=== PATIENT | male | born 1950 | race Caucasian/White ===

== ENCOUNTER → 2017-08-10 08:38 | Outpatient (CLI) | payer MEDICARE, OTHER, SELFPAY ==
[2017-08-10 09:13] LABS: Add Manual Diff / Slide Review NO; Basophils Percent Auto 0.6 % (0-2); Eosinophils Percent Auto 2.1 % (2-4); Hematocrit 43.1 % (41-53); Hemoglobin 14.7 g/dL (13.5-17.5); Lymphocytes Percent Auto 38.6 % (25-40); Mean Corpuscular HGB Conc 34.1 % (30-36); Mean Corpuscular Hemoglobin 31.2 PG (26-34); Mean Corpuscular Volume 91.4 fL (80-100); Monocytes Percent Auto 8.9 % (3-14); Neutrophils Absolute Auto 2700 /uL (3000-5900); Neutrophils Percent Auto 49.8 % (50-75); Platelet Count 206 X10^3/uL (150-400); Red Blood Cell Count 4.71 X10^6/uL (4.5-5.9); White Blood Cell Count 5.5 X10^3/uL (4.5-11.0)
[2017-08-10 09:14] LABS: Hemoglobin A1C% w Est Avg Glu 6.3 % (4.0-6.0)
[2017-08-10 09:22] LABS: Alanine Aminotransferase 33 IU/L (21-72); Albumin 4.1 g/dL (3.5-5.0); Albumin Globulin Ratio 1.3 (1.0-2.8); Alkaline Phosphatase 66 U/L (38-126); Aspartate Aminotransferase 23 IU/L (17-59); BUN Creatinine Ratio 41.4 (6-22); Bilirubin Total 0.6 mg/dL (0.2-1.3); Blood Urea Nitrogen 29 mg/dL (9-20); Calcium 9.5 mg/dL (8.4-10.2); Carbon Dioxide 30 mmol/L (22-32); Chloride 100 mmol/L (98-107); Cholesterol 159 mg/dL (140-199); Estimated Glomerular Filt Rate > 60.0 mL/min (>60); Globulin 3.1 g/dL (1.7-4.1); Glucose 118 mg/dL (80-110); HDL Cholesterol 43 mg/dL (40-60); HEMOLYSIS < 15 (0-50); LDL Cholesterol Calculated 92 mg/dL (<100); Potassium 4.2 mmol/L (3.4-5.1); Sodium 139 mmol/L (137-145); Total Protein 7.2 g/dL (6.3-8.2); Triglycerides 121 mg/dL (35-150)
[2017-08-10 12:41] LABS: Bacteria Urine None Seen; RBC Urine None Seen (0-5/HPF)
[2017-08-10 12:47] LABS: Appearance Urine UA CLEAR; Bilirubin Urine UA NEGATIVE (NEGATIVE); Color Urine UA YELLOW; Glucose Urine UA NEGATIVE (Normal); Ketones Urine UA NEGATIVE (NEGATIVE); Leukocyte Esterase Urine UA NEGATIVE (NEGATIVE); Nitrite Urine UA Negative (Negative); Occult Blood Urine UA NEGATIVE (Negative); Protein Urine UA NEGATIVE (Negative); Urobilinogen Urine UA 0.2 E.U./dL (0.2)
[2017-08-10 12:55] LABS: Culture Indicated Urine Cult Not Indicated; Squamous Epithelial Cell Urine 0-1 /HPF; Urine Comments Microscopic Normal; WBC Urine 0-1/HPF (0-5/HPF)
== END ==
PROVIDERS: PCP Family Medicine; Visit Provider Family Medicine
DX: E11.9 Type 2 diabetes mellitus without complications (principal); I10 Essential (primary) hypertension; E78.00 Pure hypercholesterolemia, unspecified
CPT/HCPCS: 36415; 80053; 80061; 81001; 83036; 85025

== ENCOUNTER → 2018-01-31 09:03 | Outpatient (CLI) | payer MEDICARE, OTHER, SELFPAY ==
--- NOTE | 2018-01-31 09:05 | DI.US.S_ITS ---
PROCEDURE: US ABD AORTA ANEURYSM SCREEN INDICATIONS: HISTORY SMOKING TECHNIQUE: Real time scanning was performed of the aorta and iliac arteries, with image documentation. COMPARISON: None. FINDINGS: Aorta: Proximal aortic was obscured by bowel gas. Mid-aorta measures 1.8 cm. Distal aortic diameter is 1.8 cm. Iliac arteries: Right common iliac artery measures 1.1 cm. Left common iliac artery measures 1.1 cm. IMPRESSION: No evidence of abdominal aortic aneurysm. Dictated by: Renato Ramirez M.D. on 01/31/2018 at 11:55 Approved by: Renato Ramirez M.D. on 01/31/2018 at 11:59
== END ==
PROVIDERS: PCP Student in an Organized Health Care Education/Training Program; Visit Provider Student in an Organized Health Care Education/Training Program
DX: Z13.6 Encounter for screening for cardiovascular disorders (principal); Z87.891 Personal history of nicotine dependence
CPT/HCPCS: 76706

== ENCOUNTER → 2018-05-29 07:19 | Outpatient (CLI) | payer MEDICARE, OTHER, SELFPAY ==
[2018-05-29 08:51] LABS: BUN Creatinine Ratio 31.3 (6-22); Blood Urea Nitrogen 25 mg/dL (9-20); Calcium 9.6 mg/dL (8.4-10.2); Carbon Dioxide 32 mmol/L (22-32); Chloride 100 mmol/L (98-107); Estimated Glomerular Filt Rate > 60.0 mL/min (>60); Glucose 136 mg/dL (80-110); HEMOLYSIS < 15 (0-50); Potassium 4.5 mmol/L (3.4-5.1); Sodium 138 mmol/L (137-145)
[2018-05-29 09:43] LABS: Hemoglobin A1C% w Est Avg Glu 6.4 % (4.0-6.0)
[2018-05-29 09:59] LABS: Vitamin D 25 Hydroxy (D3) 43.5 ng/mL (30.0-100.0)
[2018-05-29 16:13] LABS: Creatinine Urine Random 42.4 mg/dL
[2018-05-29 16:18] LABS: Microalbumi Creatinin Ratio Ur 14.1 ug/mg CR (<30); Microalbumin Urine Random < 0.6 mg/dL (0-1.6)
== END ==
PROVIDERS: PCP Student in an Organized Health Care Education/Training Program; Visit Provider Student in an Organized Health Care Education/Training Program
DX: E11.9 Type 2 diabetes mellitus without complications (principal); I10 Essential (primary) hypertension; E55.9 Vitamin D deficiency, unspecified
CPT/HCPCS: 36415; 80048; 82043; 82306; 82570; 83036

== ENCOUNTER 2018-06-29 18:11 | Observation (INO) | payer MEDICARE, OTHER, SELFPAY ==
[2018-06-29] VITALS (8 sets, daily range): BP systolic 106–130; BP diastolic 69–114; PULSE 74–141; RESP 13–24; TEMP 36.4–37.2; O2SAT 94–98; BMI 175.1; BMI 35.9
--- NOTE | 2018-06-29 18:28 | ED.ARRPALP ---
HPI - Arrhythmia/Palpitations General Chief Complaint: Arrhythmia/Palpitations Stated Complaint: blood pressure/pulse x3 days Time Seen by Provider: 06/29/18 18:28 Source: patient Mode of arrival: ambulatory Limitations: no limitations History of Present Illness HPI narrative: Patient is a 59-year-old male here for evaluation of palpitations and chest pressure. Patient states that he started to feel his heart beat fast a couple days ago. Unsure whether not it was consistent however he stated that over the past couple days he felt it when he was exerting himself like climbing a flight of stairs. He stated that he also had some chest pressure during these times. It seemed to improve with rest. Has never had a history of palpitations in the past. Was not lightheaded or short of breath. Has not done anything for symptoms prior to arrival. He states that he felt the palpitations earlier today. He stopped by 1 of the drug stores and took his blood pressure and his heart rate was in the 140s to he came to the walk-in clinic who sent him here to the emergency department after obtaining an EKG. Related Data Home Medications Medication Instructions Recorded Confirmed Mame's Rain B-12 2,500 mcg PO DAILY 11/26/17 06/29/18 aspirin 81 mg tablet,delayed 81 mg PO DAILY 11/26/17 06/29/18 release cholecalciferol (vitamin D3) 1,000 1,000 unit PO DAILY 11/26/17 06/29/18 unit capsule lpsvpxcb-dtv-wifer acid 0.4 1 tab PO DAILY 11/26/17 06/29/18 mg-lycopene 300 mcg-lutein 250 mcg tablet Previous Rx's Medication Instructions Recorded lisinopril 20 mg PO QDAY #90 tab 08/07/17 simvastatin 10 mg PO Q DAY #45 tab 08/07/17 blood sugar diagnostic strips #100 each 11/23/17 lancets 33 gauge #100 each 11/23/17 atenolol 25 mg tablet 25 mg PO QDAY #90 tab 02/05/18 hydrochlorothiazide 25 mg tablet 25 mg PO QDAY #90 tab 02/05/18 metformin 850 mg tablet 850 mg PO BID #180 tab 05/10/18 Allergies Allergy/AdvReac Type Severity Reaction Status Date / Time No Known Drug Allergies Allergy Verified 11/26/17 13:25 Review of Systems Constitutional Denies fatigue and Denies headache(s) ENT Ears, Nose, Mouth, and Throat: Denies headache(s) Cardiovascular Reports chest pain, Denies syncope, Reports rapid heart rate, Denies leg edema, Denies lightheadedness, Denies radiating jaw, neck or arm pain, Reports palpitations, Denies dyspnea and Denies dyspnea on exertion Respiratory Denies dyspnea and Denies dyspnea on exertion Gastrointestinal Gastrointestinal: Denies abdominal pain, Denies nausea and Denies vomiting Genitourinary Denies dysuria Musculoskeletal Denies myalgias and Denies arthralgias Integumentary/Breasts Denies rash Neurologic Denies behavioral changes, Denies confusion, Denies syncope and Denies headache(s) Psychiatric Denies behavioral changes and Denies confusion Endocrine Denies fatigue and Reports palpitations Hematologic/Lymphatic Denies easy bleeding and Denies easy bruising Allergic/Immunologic Denies urticaria PFS Medical History Chronic back pain (Chronic 1990) Diabetes (Chronic 1997) Hyperlipemia (Chronic) Hypertension (Chronic) Foot pain (Resolved 2013) Plantar fasciitis (Resolved ~08/2013) Surgical History History of back surgery (Resolved) Hx of knee surgery (Resolved 1967) Family History (Updated 06/29/18 @ 21:29 by MADELYN Dao) Grandfather Heart disease Grandmother Hypertension Stroke High cholesterol Diabetes mellitus Grandfather Cancer Grandmother Diabetes mellitus Mother No problems noted. Brother Atrial fibrillation Atrial fibrillation, chronic Pacemaker Social History Smoking Status: Former smoker alcohol intake: current (occasionally) Family History Grandfather Heart disease Grandmother Hypertension Stroke High cholesterol Diabetes mellitus Grandfather Cancer Grandmother Diabetes mellitus Mother No problems noted. Brother Atrial fibrillation Atrial fibrillation, chronic Pacemaker Social History household members: none Smoking Status: Former smoker alcohol intake: current Exam Initial Vital Signs Initial Vital Signs: Vital Signs Temperature 97.5 F L 06/29/18 18:19 Pulse Rate 141 H 06/29/18 18:19 Respiratory Rate 16 06/29/18 18:19 Blood Pressure 127/83 06/29/18 18:19 Pulse Oximetry 94 06/29/18 18:19 Const General: cooperative, healthy appearing, comfortable, well developed, well groomed and No acute distress Orientation: alert, awake and oriented x3 HENMT Head: normal to inspection and normocephalic Ears: hearing grossly normal bilaterally Nose: external nose normal Resp Effort & Inspection: normal respiratory effort Auscultation: clear to auscultation bilaterally Cardio Rate: tachycardic Rhythm: abnormal rhythm Pulses: radial pulses present GI Inspection: non-distended Palpation: soft, No firm and No tender Skin Lesions: no lesions Rashes: no rashes Neuro General: alert, awake and oriented x3 Cognition: normal cognition Speech: speech normal Gait: normal gait Motor: muscle tone normal throughout Extrem General: capillary refill normal and No edema Psych Appearance: grossly normal and well kempt Mood: congruent mood Scores GCS Negro coma scale eye opening: Spontaneous Negro coma scale verbal response: Orientated Negro coma scale motor response: Obey commands [place] coma scale total score: 15 Course Orders Ordered: ED Orders 06/29/18 18:31 XR chest 1V Stat 06/29/18 21:00 MRSA PCR Urgent 06/30/18 EC echo doppler complete Urgent 06/30/18 05:00 Basic Metabolic Panel Routine Complete Blood Count MAN DIFF Routine 06/30/18 05:59 Troponin I Q6H 06/30/18 11:59 Troponin I Q6H Acetaminophen (Tylenol) 650 mg PO Q6HR PRN PRN Reason: As Needed for Fever/Mild Pain Apixaban (Eliquis) 5 mg PO BID [facility] Last Admin: 06/29/18 22:40 Dose: 5 mg Aspirin (Aspirin Ec) 81 mg PO DAILY [facility] Atenolol (Tenormin) 25 mg PO DAILY [facility] Diltiazem HCl (Cardizem) 60 mg PO Q6HR [facility] Last Admin: 06/30/18 00:56 Dose: Not Given Admin: 06/29/18 22:39 Dose: 60 mg Diltiazem HCl 125 mg/ Dextrose 125 mls @ 5 mls/hr IV TITRATE [facility]; Protocol Last Titration: 06/30/18 02:45 Dose: 0 mg/hr, 0 mls/hr Titration: 06/30/18 02:37 Dose: 2.5 mg/hr, 2.5 mls/hr Titration: 05/12/19 00:00 Dose: 5 mg/hr, 5 mls/hr Titration: 06/29/18 21:02 Dose: 10 mg/hr, 10 mls/hr Titration: 06/29/18 20:30 Dose: 10 mg/hr, 10 mls/hr Admin: 06/29/18 19:53 Dose: 5 mg/hr, 5 mls/hr Lisinopril (Zestril) 20 mg PO DAILY [facility] Metformin HCl (Glucophage) 850 mg PO BIDWM [facility] Last Admin: 06/29/18 22:37 Dose: 850 mg Simvastatin (Zocor) 10 mg PO BEDTIME [facility] Last Admin: 06/29/18 22:38 Dose: Not Given Discontinued Medications Diltiazem HCl (Cardizem) 10 mg IV NOW ONE Stop: 06/29/18 18:32 Last Admin: 06/29/18 18:37 Dose: 10 mg Sodium Chloride (Normal Saline 0.9%) 1,000 mls @ 1,000 mls/hr IV BOLUS ONE Stop: 06/29/18 19:29 Last Infusion: 06/29/18 20:11 Dose: 0 mls/hr Admin: 06/29/18 18:37 Dose: 1,000 mls/hr Vital Signs - 8 hr 06/29/18 19:30 06/29/18 19:53 06/29/18 20:30 Temperature Pulse Rate 127 H 139 H 137 H Respiratory Rate 20 24 Blood Pressure 117/80 Blood Pressure [Left Arm] 117/80 130/114 H Pulse Oximetry 95 98 06/29/18 21:00 06/29/18 22:39 06/29/18 23:45 Temperature 98.9 F 97.6 F Pulse Rate 139 H 92 H 74 Respiratory Rate 13 18 Blood Pressure 130/89 106/69 Blood Pressure [Left Arm] Pulse Oximetry 95 06/30/18 00:56 06/30/18 01:00 06/30/18 02:00 Temperature Pulse Rate 69 69 69 Respiratory Rate 16 16 Blood Pressure 106/69 103/46 L 105/57 L Blood Pressure [Left Arm] Pulse Oximetry MDM - Arrhythmia/Palpitations Lab Data Attestation: I reviewed the patient's lab results. Result diagrams: 06/29/18 18:17 06/29/18 18:17 Lab Results 06/29/18 06/29/18 06/29/18 Range/Units 18:17 18:17 18:17 WBC 6.4 (4.5-11.0) X10^3/uL RBC 5.33 (4.5-5.9) X10^6/uL Hgb 16.1 (13.5-17.5) g/dL Hct 49.1 (41-53) % MCV 92.0 (80-100) fL MCH 30.1 (26-34) PG MCHC 32.8 (30-36) % RDW 13.0 (11.6-14.8) % Plt Count 237 (150-400) X10^3/uL Neut % (Auto) 49.4 L (50-75) % Lymph % (Auto) 38.7 (25-40) % [place] % (Auto) 9.8 (3-14) % Eos % (Auto) 1.2 L (2-4) % Baso % (Auto) 0.9 (0-2) % Neut # (Auto) 3200 (7701-7311) /uL Lymph # (Auto) 2500 (8638-7892) /uL [place] # (Auto) 600 (0-900) /uL Eos # (Auto) 100 (0-450) /uL Baso # (Auto) 100 (0-100) /uL PT 12.8 H (10.1-12.7) SECONDS INR 1.1 (0.9-1.3) APTT 27 (26.4-36.2) SECONDS Sodium 137 (137-145) mmol/L Potassium 3.8 (3.4-5.1) mmol/L Chloride 98 (98-107) mmol/L Carbon Dioxide 28 (22-32) mmol/L BUN 19 (9-20) mg/dL Creatinine 0.70 (0.66-1.25) mg/dL Estimated GFR > 60.0 (>60) mL/min BUN/Creatinine Ratio 27.1 H (6-22) Glucose 116 H (80-110) mg/dL Calcium 10.0 (8.4-10.2) mg/dL Total Bilirubin 0.6 (0.2-1.3) mg/dL AST 26 (17-59) IU/L ALT 33 (21-72) IU/L Alkaline Phosphatase 61 (38-126) U/L Troponin I (0.01-0.034) ng/mL B-Natriuretic Peptide < 100 (<100) Total Protein 7.8 (6.3-8.2) g/dL Albumin 4.5 (3.5-5.0) g/dL Globulin 3.3 (1.7-4.1) g/dL Albumin/Globulin Ratio 1.4 (1.0-2.8) Lipase (23-300) U/L TSH (0.47-4.68) uIU/mL Nasal Screen MRSA (PCR) (Negative) 06/29/18 06/29/18 06/29/18 Range/Units 18:17 18:17 21:00 WBC (4.5-11.0) X10^3/uL RBC (4.5-5.9) X10^6/uL Hgb (13.5-17.5) g/dL Hct (41-53) % MCV (80-100) fL MCH (26-34) PG MCHC (30-36) % RDW (11.6-14.8) % Plt Count (150-400) X10^3/uL Neut % (Auto) (50-75) % Lymph % (Auto) (25-40) % [place] % (Auto) (3-14) % Eos % (Auto) (2-4) % Baso % (Auto) (0-2) % Neut # (Auto) (2456-9883) /uL Lymph # (Auto) (9975-1998) /uL [place] # (Auto) (0-900) /uL Eos # (Auto) (0-450) /uL Baso # (Auto) (0-100) /uL PT (10.1-12.7) SECONDS INR (0.9-1.3) APTT (26.4-36.2) SECONDS Sodium (137-145) mmol/L Potassium (3.4-5.1) mmol/L Chloride (98-107) mmol/L Carbon Dioxide (22-32) mmol/L BUN (9-20) mg/dL Creatinine (0.66-1.25) mg/dL Estimated GFR (>60) mL/min BUN/Creatinine Ratio (6-22) Glucose (80-110) mg/dL Calcium (8.4-10.2) mg/dL Total Bilirubin (0.2-1.3) mg/dL AST (17-59) IU/L ALT (21-72) IU/L Alkaline Phosphatase (38-126) U/L Troponin I < 0.012 (0.01-0.034) ng/mL B-Natriuretic Peptide (<100) Total Protein (6.3-8.2) g/dL Albumin (3.5-5.0) g/dL Globulin (1.7-4.1) g/dL Albumin/Globulin Ratio (1.0-2.8) Lipase 106 (23-300) U/L TSH 2.12 (0.47-4.68) uIU/mL Nasal Screen MRSA (PCR) Negative for mrsa (Negative) 06/30/18 Range/Units 00:11 WBC (4.5-11.0) X10^3/uL RBC (4.5-5.9) X10^6/uL Hgb (13.5-17.5) g/dL Hct (41-53) % MCV (80-100) fL MCH (26-34) PG MCHC (30-36) % RDW (11.6-14.8) % Plt Count (150-400) X10^3/uL Neut % (Auto) (50-75) % Lymph % (Auto) (25-40) % [place] % (Auto) (3-14) % Eos % (Auto) (2-4) % Baso % (Auto) (0-2) % Neut # (Auto) (0560-2570) /uL Lymph # (Auto) (4670-9002) /uL [place] # (Auto) (0-900) /uL Eos # (Auto) (0-450) /uL Baso # (Auto) (0-100) /uL PT (10.1-12.7) SECONDS INR (0.9-1.3) APTT (26.4-36.2) SECONDS Sodium (137-145) mmol/L Potassium (3.4-5.1) mmol/L Chloride (98-107) mmol/L Carbon Dioxide (22-32) mmol/L BUN (9-20) mg/dL Creatinine (0.66-1.25) mg/dL Estimated GFR (>60) mL/min BUN/Creatinine Ratio (6-22) Glucose (80-110) mg/dL Calcium (8.4-10.2) mg/dL Total Bilirubin (0.2-1.3) mg/dL AST (17-59) IU/L ALT (21-72) IU/L Alkaline Phosphatase (38-126) U/L Troponin I < 0.012 (0.01-0.034) ng/mL B-Natriuretic Peptide (<100) Total Protein (6.3-8.2) g/dL Albumin (3.5-5.0) g/dL Globulin (1.7-4.1) g/dL Albumin/Globulin Ratio (1.0-2.8) Lipase (23-300) U/L TSH (0.47-4.68) uIU/mL Nasal Screen MRSA (PCR) (Negative) Imaging Data Chest x-ray: Radiologist's impression: [address] [address] XRay Report Signed Patient: Giuseppe Pringle EMR#: [id number] : 1950Acct:[id number] Age/Sex: 67 / MDate of Service: 06/29/18 Loc: ED Accession Number: [id number] Procedure: XR chest 1V Ordering Provider: Femi Melton D.O. PROCEDURE: XR CHEST 1V INDICATIONS: Tachycardia/palpitations TECHNIQUE: One view of the chest was acquired. COMPARISON: None. FINDINGS: Surgical changes and devices: None. Lungs and pleura: Low lung volumes with scattered subsegmental atelectasis/scarring. No pleural effusions or pneumothorax. Mediastinum: Mediastinal contours appear normal. Heart size is normal. Bones and chest wall: No suspicious bony lesions. Overlying soft tissues appear unremarkable. IMPRESSION: No acute disease. Dictated by: Duke Gomez M.D. on 06/29/2018 at 18:55 Approved by: Duke Gomez M.D. on 06/29/2018 at 18:55 ECG Data Attestation: I personally reviewed and interpreted this ECG as follows: Prior ECG tracings: available for review Interpretation: EKG obtained from the walk-in clinic shows sinus tachycardia with ventricular rate of 144 Right bundle branch block Normal QRS No ST T wave changes EKG obtained here in the emergency department after Cardizem shows atrial fibrillation Ventricular rate of 101 Left axis deviation No ST T wave changes MDM Narrative Medical decision making narrative: Patient is stable upon arrival. His initial EKG has a rate in the 140s. Difficult to see whether not this was sinus tachycardia or atrial flutter/fibrillation. He was given 10 mg of Cardizem which slowed his heart rate down and a repeat EKG does show what appears to be atrial fibrillation. His heart rate did then returned into the 130s the 140s. He was started on a Cardizem drip. Unsure when his symptoms actually started so will hold on offering a cardioversion. Discussed the case with DENNY Gomez the night hospitalist and will admit for further evaluation and treatment. Discussed the admission with the patient who expressed understanding and agreement. Critical Care Time Critical Care Time: Yes Total Critical Care Time: 35 Attestation: The high probability of a clinically significant, sudden or life threatening deterioration of the cardiovascular system(s) required my full and direct attention, intervention and personal management. The aggregate critical care time was 35 minutes. This time is in addition to time spent performing reported procedures but includes the following: [] Data Review and interpretation [] Patient assessment and monitoring of vital signs [] Documentation [] Medication orders and management Discharge Plan Departure Patient Disposition: Admitted As Inpatient Clinical Impression: Atrial fibrillation Qualifiers: Atrial fibrillation type: unspecified Qualified Code(s): I48.91 - Unspecified atrial fibrillation Discharge Date/Time: 06/29/18 21:03 Interventions: ED Discharge Assessment Last Done: 06/29/18 21:02 Admit Date/Time: 06/29/18 19:50 Admit Provider: Dilcia Gomez
--- NOTE | 2018-06-29 18:31 | DI.RAD.S_ITS ---
PROCEDURE: XR CHEST 1V INDICATIONS: Tachycardia/palpitations TECHNIQUE: One view of the chest was acquired. COMPARISON: None. FINDINGS: Surgical changes and devices: None. Lungs and pleura: Low lung volumes with scattered subsegmental atelectasis/scarring. No pleural effusions or pneumothorax. Mediastinum: Mediastinal contours appear normal. Heart size is normal. Bones and chest wall: No suspicious bony lesions. Overlying soft tissues appear unremarkable. IMPRESSION: No acute disease. Dictated by: Duke Gomez M.D. on 06/29/2018 at 18:55 Approved by: Duke Gomez M.D. on 06/29/2018 at 18:55
[2018-06-29] MEDS: dilTIAZem 5 MG/ML SDV 10 MG IV (18:37)
[2018-06-29] MEDS: SODIUM CHLORIDE 0.9% 1,000 ML 1000 ML IV (18:37)
[2018-06-29 18:43] LABS: Add Manual Diff / Slide Review NO; Basophils Absolute Auto 100 /uL (0-100); Basophils Percent Auto 0.9 % (0-2); Eosinophils Absolute Auto 100 /uL (0-450); Eosinophils Percent Auto 1.2 % (2-4); Hematocrit 49.1 % (41-53); Hemoglobin 16.1 g/dL (13.5-17.5); Lymphocytes Absolute Auto 2500 /uL (1100-4500); Lymphocytes Percent Auto 38.7 % (25-40); Mean Corpuscular HGB Conc 32.8 % (30-36); Mean Corpuscular Hemoglobin 30.1 PG (26-34); Monocytes Absolute Auto 600 /uL (0-900); Monocytes Percent Auto 9.8 % (3-14); Neutrophils Absolute Auto 3200 /uL (1500-7000); Neutrophils Percent Auto 49.4 % (50-75); Platelet Count 237 X10^3/uL (150-400); Red Blood Cell Count 5.33 X10^6/uL (4.5-5.9); White Blood Cell Count 6.4 X10^3/uL (4.5-11.0)
[2018-06-29 18:51] LABS: INR 1.1 (0.9-1.3); Prothrombin Time 12.8 SECONDS (10.1-12.7)
[2018-06-29 18:54] LABS: PTT Partial Thromboplastin Tim 27 SECONDS (26.4-36.2)
[2018-06-29 18:56] LABS: Alanine Aminotransferase 33 IU/L (21-72); Albumin 4.5 g/dL (3.5-5.0); Albumin Globulin Ratio 1.4 (1.0-2.8); Alkaline Phosphatase 61 U/L (38-126); Aspartate Aminotransferase 26 IU/L (17-59); BUN Creatinine Ratio 27.1 (6-22); Bilirubin Total 0.6 mg/dL (0.2-1.3); Blood Urea Nitrogen 19 mg/dL (9-20); Carbon Dioxide 28 mmol/L (22-32); Chloride 98 mmol/L (98-107); Estimated Glomerular Filt Rate > 60.0 mL/min (>60); Globulin 3.3 g/dL (1.7-4.1); Glucose 116 mg/dL (80-110); HEMOLYSIS < 15 (0-50); Lipase 106 U/L (23-300); Potassium 3.8 mmol/L (3.4-5.1); Sodium 137 mmol/L (137-145); Total Protein 7.8 g/dL (6.3-8.2)
[2018-06-29 19:08] LABS: Troponin I < 0.012 ng/mL (0.01-0.034)
[2018-06-29 19:26] LABS: Thyroid Stimulating Hormone 2.12 uIU/mL (0.47-4.68)
[2018-06-29 19:41] LABS: B Type Natriuretic Peptide < 100 (<100)
[2018-06-29] MEDS: dilTIAZem 125 MG in DEXTROSE 5 % IN WATER 100 ML IV (19:53)
--- NOTE | 2018-06-29 21:25 | PM.HP.1 ---
History of Present Illness Date Patient Seen: 06/29/18 Time Patient Seen: 19:30 Chief complaint: blood pressure/pulse x3 days Narrative: Giuseppe Pringle is a very pleasant 67 y.o. male with diabetes type 2, essential hypertension and hyperlipidemia who approximately one week ago started having symptoms of shortness of breath and chest pain on exertion. He has been moving furniture up and down stairs in his home along with new hanging plants in a pot when the symptoms occurred. He describes the shortness of breath as taking my breath away which resolves after he stops exerting himself. He had one occurrence of chest pain when he reached the top of his stairs carrying the hanging plant which has since resolved. He states he got diaphretic when he went to the outpatient clinic but also said it was hot outside, he endorses having a slight headache today. Otherwise, he denies visual changes, cough, nausea or vomiting, abdominal pain, dysuria, diarrhea or constipation, or easy bleeding or bruising. Approximately 1 or 2 days ago, he went to potato picker a prescription and took his blood pressure, the first reading of 138/84 at 1430, the second reading was 117/74 at approximately 1600. He states his heart rate is in the mid-50s. He does have a brother, 3 years older than him that has atrial fibrillation and is paced. Patient History Medical History Chronic back pain (Chronic 1990) Diabetes (Chronic 1997) Hyperlipemia (Chronic) Hypertension (Chronic) Foot pain (Resolved 2013) Plantar fasciitis (Resolved ~08/2013) Surgical History History of back surgery (Resolved) Hx of knee surgery (Resolved 1967) Family History (Updated 06/29/18 @ 21:29 by MADELYN Dao) Grandfather Heart disease Grandmother Hypertension Stroke High cholesterol Diabetes mellitus Grandfather Cancer Grandmother Diabetes mellitus Mother No problems noted. Brother Atrial fibrillation Atrial fibrillation, chronic Pacemaker Social History Smoking Status: Former smoker alcohol intake: current (occasionally) Family & Social History Family History Grandfather Heart disease Grandmother Hypertension Stroke High cholesterol Diabetes mellitus Grandfather Cancer Grandmother Diabetes mellitus Mother No problems noted. Brother Atrial fibrillation Atrial fibrillation, chronic Pacemaker Safety & Behavioral: Feels Safe in Current Yes Environment Tobacco & Substance use: Smoking Status Former smoker alcohol intake current Meds Home Medications Medication Instructions Recorded Confirmed Type lisinopril 20 mg PO QDAY #90 tab 08/07/17 06/29/18 Rx simvastatin 10 mg PO Q DAY #45 tab 08/07/17 06/29/18 Rx blood sugar diagnostic strips #100 each 11/23/17 11/26/17 Rx lancets 33 gauge #100 each 11/23/17 11/26/17 Rx Nature's Bounty B-12 2,500 mcg PO DAILY 11/26/17 06/29/18 History aspirin 81 mg tablet,delayed 81 mg PO DAILY 11/26/17 06/29/18 History release cholecalciferol (vitamin D3) 1,000 1,000 unit PO DAILY 11/26/17 06/29/18 History unit capsule foysgbqd-qws-khupl acid 0.4 1 tab PO DAILY 11/26/17 06/29/18 History mg-lycopene 300 mcg-lutein 250 mcg tablet atenolol 25 mg tablet 25 mg PO QDAY #90 tab 02/05/18 06/29/18 Rx hydrochlorothiazide 25 mg tablet 25 mg PO QDAY #90 tab 02/05/18 06/29/18 Rx metformin 850 mg tablet 850 mg PO BID #180 tab 05/10/18 06/29/18 Rx Allergies Allergy/AdvReac Type Severity Reaction Status Date / Time No Known Drug Allergies Allergy Verified 11/26/17 13:25 Exam Vital Signs (past 8 hours): - 06/29/18 18:19 06/29/18 18:37 06/29/18 19:30 Temperature 97.5 F L Pulse Rate 141 H 140 H 127 H Respiratory Rate 16 20 Blood Pressure 127/83 127/83 Blood Pressure [Left Arm] 117/80 Pulse Oximetry 94 95 06/29/18 19:53 06/29/18 20:30 06/29/18 21:00 Temperature 98.9 F Pulse Rate 139 H 137 H 139 H Respiratory Rate 24 13 Blood Pressure 117/80 130/89 Blood Pressure [Left Arm] 130/114 H Pulse Oximetry 98 Oxygen Delivery Method Room Air Const General: well groomed and well hydrated Nutritional Appearance: overweight Orientation: alert, awake and oriented x3 HENMT Head: normal to inspection and normocephalic Ears: hearing grossly normal bilaterally Nose: external nose normal and nares normal Face and sinus: normal facial exam Mouth: oral mucosae normal and No audible dysphonia Teeth and gingiva: dentition normal Eyes General: appearance normal, both eyes and all related structures Eyelids: eyelids normal Conjunctivae: conjunctivae normal Sclera: sclerae normal Direct ophthalmoscopy: photophobia not present Neck Neck: normal visual inspection, No tracheal deviation and No JVD Resp Effort & Inspection: normal respiratory effort and able to speak in complete sentences Auscultation: clear to auscultation bilaterally Cardio Rate: tachycardic Rhythm: other (Irregularly irregular) Heart Sounds: gallop Pulses: normal peripheral pulses Other: Negative Kishor's sign GI Inspection: normal to inspection Palpation: soft and No guarding Auscultation: normal bowel sounds Skin General: no rashes or lesions noted and turgor normal Lesions: no lesions Rashes: no rashes Trauma: no lacerations or abrasions Hair: normal Nails: normal Neuro General: alert, awake and oriented x3 Cognition: normal cognition Speech: speech normal Extrem General: normal to inspection and full ROM Psych Affect: normal affect Thought Process: normal Judgment: judgment good Objective Labs Result Diagrams: 06/29/18 18:17 06/29/18 18:17 Labs: Laboratory Results - last 24 hr 06/29/18 06/29/18 06/29/18 18:17 18:17 18:17 WBC 6.4 RBC 5.33 Hgb 16.1 Hct 49.1 MCV 92.0 MCH 30.1 MCHC 32.8 RDW 13.0 Plt Count 237 Neut % (Auto) 49.4 L Lymph % (Auto) 38.7 [place] % (Auto) 9.8 Eos % (Auto) 1.2 L Baso % (Auto) 0.9 Neut # (Auto) 3200 Lymph # (Auto) 2500 [place] # (Auto) 600 Eos # (Auto) 100 Baso # (Auto) 100 PT 12.8 H INR 1.1 APTT 27 Sodium 137 Potassium 3.8 Chloride 98 Carbon Dioxide 28 BUN 19 Creatinine 0.70 Estimated GFR > 60.0 BUN/Creatinine Ratio 27.1 H Glucose 116 H Calcium 10.0 Total Bilirubin 0.6 AST 26 ALT 33 Alkaline Phosphatase 61 Troponin I B-Natriuretic Peptide < 100 Total Protein 7.8 Albumin 4.5 Globulin 3.3 Albumin/Globulin Ratio 1.4 Lipase TSH 06/29/18 06/29/18 18:17 18:17 WBC RBC Hgb Hct MCV MCH MCHC RDW Plt Count Neut % (Auto) Lymph % (Auto) [place] % (Auto) Eos % (Auto) Baso % (Auto) Neut # (Auto) Lymph # (Auto) [place] # (Auto) Eos # (Auto) Baso # (Auto) PT INR APTT Sodium Potassium Chloride Carbon Dioxide BUN Creatinine Estimated GFR BUN/Creatinine Ratio Glucose Calcium Total Bilirubin AST ALT Alkaline Phosphatase Troponin I < 0.012 B-Natriuretic Peptide Total Protein Albumin Globulin Albumin/Globulin Ratio Lipase 106 TSH 2.12 Assessment & Plan Assessment & Plan narrative: Giuseppe Pringle is a very pleasant 67 y.o. male with new onset atrial fibrillation who will be admitted to the ICU to convert his rhythm on a diltiazem drip to oral diltiazem cross taper. NEW ONSET ATRIAL FIBRILLATION POA - He was initiated on a diltiazem drip protocol in the ED and will continued on the drip - Start oral diltiazem 60 mg q 6 hours with blood pressure parameters - Start oral Apixaban 5 mg po bid for anticoagulation - Echo doppler in the AM - Outpatient follow-up with Cardiology - Start DIABETES TYPE 2 WELL CONTROLLED WITH AN A1C OF 6.4 IN MAY 2018 POA - Continue home dose of metformin 850 mg BID ESSENTIAL HYPERTENSION - Continue home dose of atenolol 25 mg po daily - Continue home dose of lisinopril 20 mg po daily - Continue home dose of ASA 81 mg po daily HYPERLIPIDEMIA - Continue home dose of Simvastatin 10 mg po daily Patient is admitted inpatient ICU as his stay is anticipated to exceed 2 midnights. FEN: Currently receiving IV diltiazem, diabetic carb control diet, BMP in the am VTE Prophylaxis: Apixaban 5 mg po bid Disposition: Likely discharge home Code status: Full Code Admission time: 75 minutes Scores CHADS-VASc Congestive heart failure: no Hypertension: yes Age 75 years or older: no Diabetes mellitus: yes Stroke, TIA, or TE: no Vascular disease: no Age 65 to 74 years: yes Sex category (female): Male CHADS-VASc Score: 3 Quality VTE Deep Vein Thrombosis/Pulmonary Embolism Present on Admission: No
--- NOTE | 2018-06-29 21:55 | PC.NURSE ---
Call and left a message with [facility] at regard echo order
--- NOTE | 2018-06-29 22:12 | PC.NURSE ---
Dayshift staff please call Echo again in AM 06/30/18 to remind him or her about the order for the patient in room 106. Number is [phone]. Thank you
[2018-06-29] MEDS: METFORMIN 850 MG TABLET PO (22:37)
[2018-06-29] MEDS: dilTIAZem 30 MG TABLET 60 MG PO (22:39)
[2018-06-29] MEDS: APIXABAN 5 MG TABLET PO (22:40)
--- NOTE | 2018-06-29 23:07 | PC.NURSE ---
admit note pt on diltiazem gtt at 10 mg/hr. HR sustaining low 140s. Diltiazem increased to 15 mg/hr. some reduction in rate noted, but HR up to 140s when pt stands to void and is slow to decline. Pt denies chest tightness, palpitations, SOB. Tele shows 2:[address] rate 138.
[2018-06-30] VITALS (16 sets, daily range): BP systolic 103–143; BP diastolic 46–86; PULSE 68–136; RESP 9–21; TEMP 36.5–38.9; O2SAT 94–98
--- NOTE | 2018-06-30 | DI.ECHO.S_ITS ---
[facility] +---------+ : : [address] : [address] : : : : [id number] : : : : Phone: [phone]+ Echocardiogram Report + + :Name: ROYCE JORDAN Study Date: 06/30/2018 Height: 71 in : :[facility] Weight: 257 lb : : Gender: Male BSA: 2.3 m2 : :: 1950 Age: 67 yrs BP: 129/67 mmHg: :Reason For Study: AFIB : : Performed By: Jose Cruz Maldonado : :Referring: ANGIE TURNER : + + Interpretation Summary A. fib with controlled rate. Normal LV size, wall thickness; mild global hypokinesis. EF is 50-55 percent. Severe biatrial enlargement. No significant valvular abnormalities. No prior study available for comparison. Procedure: A two-dimensional transthoracic echocardiogram with color flow and Doppler was performed. The study quality was technically adequate. There is no prior echocardiogram noted for this patient. The patient was in atrial fibrillation with controlled ventricular rate during the exam. The patient had a heart rate of 76-104 beats per minute. Left Ventricle: The left ventricle is normal in size. There is normal left ventricular wall thickness. The ejection fraction is estimated to be 50-55%. There are no focal wall motion abnormalities. Right Ventricle: The right ventricle is normal in size and function. Atria: The left atrium is severely dilated. The right atrium is severely dilated. The interatrial septum is intact with no evidence for an atrial septal defect. Mitral Valve: The mitral valve is normal in structure and function. There is mild mitral regurgitation. Aortic Valve: The aortic valve is trileaflet. The aortic valve opens well. No aortic regurgitation is present. Tricuspid Valve: The tricuspid valve is normal in structure and function. There is trace tricuspid regurgitation. Pulmonary artery pressures cannot be estimated because of the lack of a measurable TR jet velocity. Pulmonic Valve: The pulmonic valve is normal in structure and function. There is trace pulmonic regurgitation. Great Vessels: The aortic root is normal size. The dimensions of the ascending aorta are normal. The pulmonary artery is normal size. The IVC is dilated (diameter is greater than 2.1 cm) yet it collapses greater than 50% with a sniff. This suggests a right atrial pressure of 8 mm Hg. Pericardium/ Pleura There is no pericardial effusion. There is no pleural effusion. MMode/2D Measurements & Calculations LVIDd: 5.5 cm LVOT diam: 2.2 cm LVIDs: 3.5 cm Ao root diam: 3.0 cm FS: 37.2 % Aortic Jxn: 2.4 cm EPSS: 1.1 cm asc Aorta Diam: 3.1 cm IVSd: 1.0 cm LVPWd: 1.1 cm LV acosta. diameter/BSA (cm/m^2): 2.3 LV sys. diameter/BSA (cm/m^2): 1.5 LA dimension: 6.0 cm RA long axis: 6.5 cm LA A2 area: 28.1 cm2 RA area: 29.5 cm2 LA A4 area: 32.8 cm2 RA vol: 113.5 ml LA length (vol): 7.2 cm RA : 48.4 ml/m2 LA vol: 109.1 ml IVC diam: 2.7 cm LA vol index: 46.5 ml/m2 Doppler Measurements & Calculations Ao V2 max: 119.7 cm/sec LVOT Max Josiah: 77.8 cm/sec Ao V2 mean: 93.6 cm/sec LV V1 max P.4 mmHg Ao max P.7 mmHg LV V1 VTI: 16.0 cm Ao mean P.7 mmHg TAHIRA(I,D): 2.5 cm2 Ao V2 VTI: 24.9 cm TAHIRA(V,D): 2.5 cm2 sev ratio: 0.64 TAHIRA indexed to BSA (cm^2/m^2): 1.1 MV E max josiah: 88.4 cm/sec PA V2 max: 64.0 cm/sec MV A max josiah: 2.6 cm/sec PA V2 mean: 47.6 cm/sec MV E/A: 34.4 PA mean P.98 mmHg Med Peak E' Josiah: 5.8 cm/sec PA pr(Accel): 49.1 mmHg E/E' med: 15.2 PA Accel Time: 0.06 sec Lat Peak E' Josiah: 8.6 cm/sec E/E' lat: 10.3 E/e' average: 12.7 MV dec time: 0.14 sec SV(LVOT): 62.0 ml Electronically signed by: Nathalie Stein M.D. on Reading Physician:06/30/2018 05:56 PM
[2018-06-30 00:39] LABS: Troponin I < 0.012 ng/mL (0.01-0.034)
[2018-06-30 05:00] LABS: BUN Creatinine Ratio 31.7 (6-22); Blood Urea Nitrogen 19 mg/dL (9-20); Calcium 9.1 mg/dL (8.4-10.2); Carbon Dioxide 28 mmol/L (22-32); Chloride 101 mmol/L (98-107); Estimated Glomerular Filt Rate > 60.0 mL/min (>60); Glucose 108 mg/dL (80-110); HEMOLYSIS < 15 (0-50); Hematocrit 42.2 % (41-53); Mean Corpuscular HGB Conc 33.3 % (30-36); Mean Corpuscular Hemoglobin 30.4 PG (26-34); Mean Corpuscular Volume 91.3 fL (80-100); Platelet Count 187 X10^3/uL (150-400); Potassium 3.8 mmol/L (3.4-5.1); Red Blood Cell Count 4.62 X10^6/uL (4.5-5.9); Red Cell Distribution Width 12.8 % (11.6-14.8); Sodium 134 mmol/L (137-145); White Blood Cell Count 6.6 X10^3/uL (4.5-11.0)
[2018-06-30 05:07] LABS: Troponin I < 0.012 ng/mL (0.01-0.034)
[2018-06-30] MEDS: dilTIAZem 30 MG TABLET 60 MG PO (06:31)
--- NOTE | 2018-06-30 06:47 | PC.NURSE ---
Patient in A-fib/flutter CVR at midnight, diltiazem gtt titrated down from 15mg/hr to off by 0300, see vital trends. At 0440 while patient was sleeping, HR noted to be bradycardic to 32 briefly, recovered to 60s-70s, patient roused easily and was asymptomatic. PO diltiazem 60mg Q6h has been initiated.
[2018-06-30 07:10] LABS: Neutrophils Absolute Manual 2970 /uL (3000-5900); Total Cells Counted 100
[2018-06-30 07:11] LABS: RBC Morphology Normal Morphology
[2018-06-30] MEDS: APIXABAN 5 MG TABLET PO ×2 (07:51→21:34)
[2018-06-30] MEDS: ASPIRIN EC 81 MG TABLET PO (07:52)
[2018-06-30] MEDS: ATENOLOL 25 MG TABLET PO (07:52)
[2018-06-30] MEDS: LISINOPRIL 20 MG TABLET PO (07:52)
[2018-06-30] MEDS: METFORMIN 850 MG TABLET PO ×2 (07:53→17:21)
[2018-06-30] MEDS: ACETAMINOPHEN 325 MG TABLET 650 MG PO (07:55)
--- NOTE | 2018-06-30 08:56 | CM.DANOTE ---
Patient is a 67 year old male who was admitted on 06/29/18 for BP and AFIB issues. Pt has [employer] for insurance and his PCP is Dr. Mathis. EMR was reviewed. Per MD, pt with new onset AFIB and likely can d/c home when medically stable, waiting for chest xray and blood work results. SW met bedside with pt and explained role and pt confirmed that he lives at home in [place] alone and has supportive significant other in town as well and they take turns staying at each others houses and Sig Other is available for assist if needed after d/c. Pt denies any hx of HH or SNF and is quite Independent at baseline and active and drives. Pt denies any DPOA and was agreeable to DPOA brochure and pwk to review and SW provided to pt. Pt does not anticipate any SW needs at d/c and preference is to d/c home today if stable as he has plans for a whale watching tour with Sig other later today. SW provided pt with his Medicare Rights and he acknowledged understanding and signed his initial Medicare Message. Plan: SW to follow for likely pt d/c home when medically stable and any further identified discharge planning needs. TAVARES Lemus Discharge Planning/Care Management CM Discharge Assessment Start: 06/30/18 08:54 Freq: Status: Active Protocol: Document 06/30/18 08:54 BF (Rec: 06/30/18 08:56 [id number]) Discharge Planning Assessment Assigned Overnight Stocker TAVARES Mc DPOA/Assigned Designee Name none Advance Directives? Yes Advance Directives on File No History Provided By Patient Medical Record Has Patient been admitted in last 30 No days? Prior Living Arrangements House Household Members none Type of transporation used prior to Drives own vehicle admit Independent with ADL's Yes Is patient alert and oriented? Yes Caregiver for Another No Comment Likely home pending test results Barriers to Discharge No Discharge Plan Home Transportation Arrangement Significant other can likely provide transport at d/c Referrals Initiated None needed Whiteboard Updated in Patient Room with Yes name and ext. # of Overnight Stocker Review Status In Process Please Provide Date Initial DC 06/30/18 Assessment Was Performed Next Review Type Continued Stay Review
[2018-06-30 11:17] LABS: Magnesium 2.1 mg/dL (1.6-2.3)
[2018-06-30] MEDS: dilTIAZem CD 180 MG CAP PO (12:53)
[2018-06-30] MEDS: dilTIAZem SR 60 MG PO (17:22)
--- NOTE | 2018-06-30 18:37 | PC.NURSE ---
Addendum entered by Karen Briggs R.N. 06/30/18 19:03: When assessing sensation to face, pt says he feels both sides the same. Says that his cheek feels swollen and numb. No other neuro deficits noted. Called and spoke to Dr. Banuelos to report this at 18:35. Vitals at time of incident were B/P 137/81, HR 80 A-flutter. Original Note: event note 18:10- pt reported feeling numbness to left cheek. NIH stroke scale done.
--- NOTE | 2018-06-30 19:11 | P.PN_ITS ---
Subjective Date Patient Seen: 06/30/18 Interval history: Giuseppe Pringle is a 67-year-old male with a past medical history significant for hypertension, hyperlipidemia, diabetes mellitus type 2,non-insulin using, who presented for dyspnea on exertion x1 week and was found to have atrial fibrillation with RVR. Admitted for further management. The patient is resting in bedside chair comfortably. He reports he was symptomatic of atrial fibrillation with dyspnea on exertion that has mildly improved. He however reports he has not climbed stairs or moved furniture which were the actions that provoked his symptoms at home. The patient has no complaints and denies headache, lightheadedness or dizziness, vision changes, chest pain, shortness of breath, abdominal pain, nausea, vomiting, fever, chills, dysuria, diarrhea or constipation. He is voiding without difficulty. He has not had a bowel movement since admission but feels as though he may today. He is ambulating without assistance. Exam Vital Signs (past 8 hours): - 06/30/18 02:00 06/30/18 03:00 06/30/18 05:00 Temperature Pulse Rate 69 68 70 Respiratory Rate 16 15 18 Blood Pressure 105/57 L 120/75 111/66 Pulse Oximetry 06/30/18 06:31 06/30/18 07:00 06/30/18 08:08 Temperature 98.0 F Pulse Rate 87 92 H 136 H Respiratory Rate 18 Blood Pressure 132/67 138/75 Pulse Oximetry 98 06/30/18 08:13 Temperature Pulse Rate Respiratory Rate Blood Pressure Pulse Oximetry 95 Oxygen Delivery Method Room Air Oxygen Flow Rate 0 Narrative Exam Narrative: General: Older gentleman sitting in bedside chair and in no acute distress, well-developed, well-nourished, appropriately interactive. HEENT: Normocephalic, atraumatic. External ears without defect. Pupils equal, round, and reactive to light. Anicteric sclerae, moist conjunctivae, and no lid lag. Neck: Supple with full range of motion. No jugular venous distension. No bruits. No lymphadenopathy or thyromegaly. Cardiovascular: Irregularly irregular without murmurs, rubs, or gallops appreciated. Pulmonary: Clear to auscultation bilaterally without crackles, wheezes, or rhonchi. Normal respiratory effort with no use of accessory muscles. Abdomen: Soft, bowel sounds present, nontender, nondistended. No hepatosplenome estela or masses appreciated. Extremities: No clubbing, cyanosis, or edema. Skin: Normal temperature, turgor, and texture; no rash, ulcers, or subcutaneous nodules appreciated. Neurological: Cranial nerves grossly intact. Psychiatric: Normal mood and affect. Alert and oriented to person, place, and time. Objective Labs Result Diagrams: 06/30/18 04:26 06/30/18 04:26 Labs: Laboratory Results - last 24 hr 06/29/18 06/29/18 06/29/18 18:17 18:17 18:17 WBC 6.4 RBC 5.33 Hgb 16.1 Hct 49.1 MCV 92.0 MCH 30.1 MCHC 32.8 RDW 13.0 Plt Count 237 Neut % (Auto) 49.4 L Lymph % (Auto) 38.7 Traverse % (Auto) 9.8 Eos % (Auto) 1.2 L Baso % (Auto) 0.9 Neut # (Auto) 3200 Lymph # (Auto) 2500 Traverse # (Auto) 600 Eos # (Auto) 100 Baso # (Auto) 100 Total Counted Seg Neutrophils % Lymphocytes % (Manual) Atypical Lymphs % Monocytes % (Manual) Eosinophils % (Manual) Basophils % (Manual) Neutrophils # (Manual) RBC Morphology PT 12.8 H INR 1.1 APTT 27 Sodium 137 Potassium 3.8 Chloride 98 Carbon Dioxide 28 BUN 19 Creatinine 0.70 Estimated GFR > 60.0 BUN/Creatinine Ratio 27.1 H Glucose 116 H Calcium 10.0 Total Bilirubin 0.6 AST 26 ALT 33 Alkaline Phosphatase 61 Troponin I B-Natriuretic Peptide < 100 Total Protein 7.8 Albumin 4.5 Globulin 3.3 Albumin/Globulin Ratio 1.4 Lipase TSH Nasal Screen MRSA (PCR) 06/29/18 06/29/18 06/29/18 18:17 18:17 21:00 WBC RBC Hgb Hct MCV MCH MCHC RDW Plt Count Neut % (Auto) Lymph % (Auto) Traverse % (Auto) Eos % (Auto) Baso % (Auto) Neut # (Auto) Lymph # (Auto) Traverse # (Auto) Eos # (Auto) Baso # (Auto) Total Counted Seg Neutrophils % Lymphocytes % (Manual) Atypical Lymphs % Monocytes % (Manual) Eosinophils % (Manual) Basophils % (Manual) Neutrophils # (Manual) RBC Morphology PT INR APTT Sodium Potassium Chloride Carbon Dioxide BUN Creatinine Estimated GFR BUN/Creatinine Ratio Glucose Calcium Total Bilirubin AST ALT Alkaline Phosphatase Troponin I < 0.012 B-Natriuretic Peptide Total Protein Albumin Globulin Albumin/Globulin Ratio Lipase 106 TSH 2.12 Nasal Screen MRSA (PCR) Negative for mrsa 06/30/18 06/30/18 06/30/18 00:11 04:26 04:26 WBC 6.6 RBC 4.62 Hgb 14.0 Hct 42.2 MCV 91.3 MCH 30.4 MCHC 33.3 RDW 12.8 Plt Count 187 Neut % (Auto) Lymph % (Auto) Traverse % (Auto) Eos % (Auto) Baso % (Auto) Neut # (Auto) Lymph # (Auto) Traverse # (Auto) Eos # (Auto) Baso # (Auto) Total Counted 100 Seg Neutrophils % 45.0 Lymphocytes % (Manual) 46.0 H Atypical Lymphs % 1.0 H Monocytes % (Manual) 3.0 Eosinophils % (Manual) 3.0 Basophils % (Manual) 2.0 H Neutrophils # (Manual) 2970 L RBC Morphology Normal morphology PT INR APTT Sodium 134 L Potassium 3.8 Chloride 101 Carbon Dioxide 28 BUN 19 Creatinine 0.60 L Estimated GFR > 60.0 BUN/Creatinine Ratio 31.7 H Glucose 108 Calcium 9.1 Total Bilirubin AST ALT Alkaline Phosphatase Troponin I < 0.012 B-Natriuretic Peptide Total Protein Albumin Globulin Albumin/Globulin Ratio Lipase TSH Nasal Screen MRSA (PCR) 06/30/18 04:26 WBC RBC Hgb Hct MCV MCH MCHC RDW Plt Count Neut % (Auto) Lymph % (Auto) Traverse % (Auto) Eos % (Auto) Baso % (Auto) Neut # (Auto) Lymph # (Auto) Traverse # (Auto) Eos # (Auto) Baso # (Auto) Total Counted Seg Neutrophils % Lymphocytes % (Manual) Atypical Lymphs % Monocytes % (Manual) Eosinophils % (Manual) Basophils % (Manual) Neutrophils # (Manual) RBC Morphology PT INR APTT Sodium Potassium Chloride Carbon Dioxide BUN Creatinine Estimated GFR BUN/Creatinine Ratio Glucose Calcium Total Bilirubin AST ALT Alkaline Phosphatase Troponin I < 0.012 B-Natriuretic Peptide Total Protein Albumin Globulin Albumin/Globulin Ratio Lipase TSH Nasal Screen MRSA (PCR) Assessment & Plan Assessment & Plan narrative: Giuseppe Pringle is a 67-year-old male with a past medical history significant for hypertension, hyperlipidemia, diabetes mellitus type 2,non-insulin using, who presented for dyspnea on exertion x1 week and was found to have atrial fibrillation with RVR. Admitted for further management. 1. New onset atrial fibrillation, present on admission. Active. -He was initiated on a diltiazem gtt and titrated off to short acting diltiazem 60 mg every 6 hours then transition to long-acting diltiazem CD 180 mg daily. W ill continue to titrate diltiazem CD as needed. -Echocardiogram demonstrated normal LV size with mild global hypokinesis, EF 50- 55%, severe bilateral atrial enlargement, no significant valvular abnormalities. -Continue Eliquis 5 mg twice daily for VTE prophylaxis. Continue aspirin 81 mg daily. -Patient reports intermittent snoring and has significant neck circumference, therefore, recommended outpatient sleep study to assess for FATOU and treatment if present. -Recommend referral to cardiology outpatient per PCP. 2. Diabetes mellitus type 2, non-insulin using, present on admission. Stable. -Hemoglobin A1c 6.4% on 06/07. -Continue home dose of metformin 850 mg twice daily. -Continue [facility] blood glucose checks. 3. Hypertension, chronic, present on admission. Stable. -Continue aspirin 81 mg daily, atenolol 25 mg daily, lisinopril 20 mg daily. 4. Hyperlipidemia, chronic, present on admission. Stable. -Continue home dose of Simvastatin 10 mg daily. Disposition: Patient likely to discharge home tomorrow once atrial fibrillation with RVR has been controlled adequately. Quality VTE Deep Vein Thrombosis/Pulmonary Embolism Present on Admission: No
--- NOTE | 2018-06-30 20:18 | PM.EVENT ---
Date Patient Seen: 06/30/18 Time Patient Seen: 19:30 Patient was reported by nursing to have facial parasthesia concerning for a CVA or TIA. Patient seen and I did a NIH scale neuro exam which he scored 0. Gen: Alert, oriented X 4. HEENT: Head is normocephalic, no facsiculations, Eyes: PERRLA, EOM nl Neck: supple, rotation to right and left w/symetrical strenth and range of motion Shoulder: normal strength of uplift bilaterally UE: hand community center director 5/5, biceps strength 5/5, negative Rhomberg LE: able to do heel to thomas manuever bilaterally, dorsaflexion and plantarflexion normal with 5/5 strength Neuro: cranial nerves II-XI nl Psyche: normal mood and affect A/P Normal neuro exam. Patient is being treated for hyperlipidemia, last fasting lipids in 2018. Ordered fasting labs in the am and consider changing statin dose and/or medication.
--- NOTE | 2018-06-30 20:27 | P.EN_ITS ---
Date Patient Seen: 06/30/18 Time Patient Seen: 19:30 Patient was reported by nursing to have facial parasthesia concerning for a CVA or TIA. Patient seen and I did a NIH scale neuro exam which he scored 0. Gen: Alert, oriented X 4. HEENT: Head is normocephalic, no facsiculations, Eyes: PERRLA, EOM nl Neck: supple, rotation to right and left w/symetrical strenth and range of motion Shoulder: normal strength of uplift bilaterally UE: hand bowling ball weigher and packer 5/5, biceps strength 5/5, negative Rhomberg LE: able to do heel to thomas manuever bilaterally, dorsaflexion and plantarflexion normal with 5/5 strength Neuro: cranial nerves II-XI nl Psyche: normal mood and affect A/P Normal neuro exam. Patient is being treated for hyperlipidemia, last fasting lipids in 2018. Ordered fasting labs in the am and consider changing statin dose and/or medication.
[2018-06-30] MEDS: SIMVASTATIN 20 MG TABLET 10 MG PO (21:35)
--- NOTE | 2018-07-01 01:38 | PC.NURSE ---
MADELYN Gomez contacted about q2 vs and they may now be q4 hr.
[2018-07-01 04:55] VITALS: BP 118/57; PULSE 83; RESP 18; TEMP 36.9; O2SAT 96
[2018-07-01 05:46] LABS: Add Manual Diff / Slide Review NO; Basophils Absolute Auto 0 /uL (0-100); Basophils Percent Auto 0.7 % (0-2); Eosinophils Absolute Auto 100 /uL (0-450); Eosinophils Percent Auto 1.6 % (2-4); Hematocrit 42.2 % (41-53); Hemoglobin 14.4 g/dL (13.5-17.5); Lymphocytes Absolute Auto 1900 /uL (1100-4500); Lymphocytes Percent Auto 36.8 % (25-40); Mean Corpuscular HGB Conc 34.1 % (30-36); Mean Corpuscular Volume 91.1 fL (80-100); Monocytes Absolute Auto 600 /uL (0-900); Monocytes Percent Auto 10.8 % (3-14); Neutrophils Absolute Auto 2600 /uL (1500-7000); Neutrophils Percent Auto 50.1 % (50-75); Platelet Count 192 X10^3/uL (150-400); Red Blood Cell Count 4.63 X10^6/uL (4.5-5.9); Red Cell Distribution Width 13.1 % (11.6-14.8); White Blood Cell Count 5.2 X10^3/uL (4.5-11.0)
[2018-07-01 05:59] LABS: Alanine Aminotransferase 30 IU/L (21-72); Albumin 3.6 g/dL (3.5-5.0); Albumin Globulin Ratio 1.3 (1.0-2.8); Alkaline Phosphatase 52 U/L (38-126); Aspartate Aminotransferase 19 IU/L (17-59); BUN Creatinine Ratio 27.1 (6-22); Bilirubin Total 0.4 mg/dL (0.2-1.3); Blood Urea Nitrogen 19 mg/dL (9-20); Calcium 9.1 mg/dL (8.4-10.2); Carbon Dioxide 29 mmol/L (22-32); Chloride 102 mmol/L (98-107); Estimated Glomerular Filt Rate > 60.0 mL/min (>60); Globulin 2.7 g/dL (1.7-4.1); Glucose 121 mg/dL (80-110); HEMOLYSIS < 15 (0-50); Magnesium 2.1 mg/dL (1.6-2.3); Potassium 3.9 mmol/L (3.4-5.1); Sodium 136 mmol/L (137-145); Total Protein 6.3 g/dL (6.3-8.2)
[2018-07-01 08:00] VITALS: BP 122/65; PULSE 76; RESP 16; TEMP 36.8; O2SAT 97
[2018-07-01] MEDS: METFORMIN 850 MG TABLET PO (08:17)
[2018-07-01] MEDS: ATENOLOL 25 MG TABLET PO (08:17)
[2018-07-01] MEDS: ASPIRIN EC 81 MG TABLET PO (08:17)
[2018-07-01] MEDS: APIXABAN 5 MG TABLET PO (08:17)
[2018-07-01] MEDS: LISINOPRIL 20 MG TABLET PO (08:18)
[2018-07-01] MEDS: DOCUSATE 100 MG CAPSULE PO (08:18)
[2018-07-01] MEDS: dilTIAZem CD 120 MG CAP 240 MG PO (08:18)
--- NOTE | 2018-07-01 12:06 | P.DS_ITS ---
History of Present Illness Date Patient Seen: 06/29/18 Chief complaint: blood pressure/pulse x3 days Narrative: Written by Dilcia JOSHI: Giuseppe Pringle is a very pleasant 67 y.o. male with diabetes type 2, essential hypertension and hyperlipidemia who approximately one week ago started having symptoms of shortness of breath and chest pain on exertion. He has been moving furniture up and down stairs in his home along with new hanging plants in a pot when the symptoms occurred. He describes the shortness of breath as taking my breath away which resolves after he stops exerting himself. He had one occurrence of chest pain when he reached the top of his stairs carrying the hanging plant which has since resolved. He states he got diaphretic when he went to the outpatient clinic but also said it was hot outside, he endorses having a slight headache today. Otherwise, he denies visual changes, cough, nausea or vomiting, abdominal pain, dysuria, diarrhea or constipation, or easy bleeding or bruising. Approximately 1 or 2 days ago, he went to [facility] a prescription and took his blood pressure, the first reading of 138/84 at 1430, the second reading was 117/74 at approximately 1600. He states his heart rate is in the mid-50s. He does have a brother, 3 years older than him that has atrial fibrillation and is paced. Discharge Providers Date of admission: 06/29/18 19:50 Discharge Date: 07/01/18 Primary care physician: Mk Mathis MD Discharge provider: Pauly Banuelos DO Summary Discharge Diagnosis: 1. New onset appears to be chronic atrial fibrillation, present on admission. Stable. 2. Diabetes mellitus type 2, non-insulin using, present on admission. Stable. 3. Hypertension, chronic, present on admission. Stable. 4. Hyperlipidemia, chronic, present on admission. Stable. 5. Acute episode of left facial paresthesia, not present on admission. Resolved. 6. Obese, present on admission. Stable. Hospital Course: Giuseppe Pringle is a 67-year-old male with a past medical history significant for hypertension, hyperlipidemia, diabetes mellitus type 2,non-insulin using, who presented for dyspnea on exertion x1 week and was found to have atrial fibrillation with RVR. Admitted for further management. 1. New onset atrial fibrillation, present on admission. Stable. -He was initiated on a diltiazem gtt and titrated off to short then long acting PO diltiazem. Discharged on diltiazem CD 240 mg daily. Rate controlled in 80s to 90s at time of discharge. -Echocardiogram demonstrated normal LV size with mild global hypokinesis, EF 50- 55%, severe bilateral atrial enlargement, no significant valvular abnormalities. -Continued aspirin 81 mg daily and Xarelto 20 mg daily ($10 co-pay). -Patient reports intermittent snoring, has large neck circumference and centripetal obesity, and bilateral atrial enlargement, therefore, recommended outpatient sleep study to assess for FATOU and treatment if present. -Recommended referral to cardiology outpatient per PCP. 2. Diabetes mellitus type 2, non-insulin using, present on admission. Stable. -Hemoglobin A1c 6.4% on 06/07. -Continued home dose of metformin 850 mg twice daily. -Continued [facility] blood glucose checks. 3. Hypertension, chronic, present on admission. Stable. -Continued aspirin 81 mg daily, atenolol 25 mg daily, lisinopril 20 mg daily. 4. Hyperlipidemia, chronic, present on admission. Stable. -Continued home dose of Simvastatin 10 mg daily. 5. Acute episode of left facial paresthesia, not present on admission. Resolved. -NIH score 0 with non-focal exam. Resolved within minutes. -Patient on Xarelto and aspirin as above. 6. Obese, present on admission. Stable. -BMI 36. -Counseled patient on lifestyle modification including diet and exercise. Status at Discharge Functional status at discharge: uses cane/walker Overall status at discharge: patient is progressing back to baseline Exam Vital Signs (past 8 hours): - 07/01/18 04:55 07/01/18 08:00 Temperature 98.5 F 98.2 F Pulse Rate 83 76 Respiratory Rate 18 16 Blood Pressure 118/57 L 122/65 Pulse Oximetry 96 97 Oxygen Delivery Method Room Air Oxygen Flow Rate 0 Narrative Exam Narrative: General: Older gentleman sitting in bedside chair and in no acute distress, well-developed, well-nourished, appropriately interactive. HEENT: Normocephalic, atraumatic. External ears without defect. Pupils equal, round, and reactive to light. Anicteric sclerae, moist conjunctivae, and no lid lag. Neck: Supple with full range of motion. No jugular venous distension. No bruits. No lymphadenopathy or thyromegaly. Cardiovascular: Irregularly irregular without murmurs, rubs, or gallops appreciated. Pulmonary: Clear to auscultation bilaterally without crackles, wheezes, or rhonchi. Normal respiratory effort with no use of accessory muscles. Abdomen: Soft, obese, bowel sounds present, nontender, nondistended. No hepatosplenomegaly or masses appreciated. Extremities: No clubbing, cyanosis, or edema. Skin: Normal temperature, turgor, and texture; no rash, ulcers, or subcutaneous nodules appreciated. Neurological: Cranial nerves grossly intact. Psychiatric: Normal mood and affect. Alert and oriented to person, place, and time. Objective Labs Result Diagrams: 07/01/18 04:55 07/01/18 04:55 Labs: Laboratory Results - last 24 hr 07/01/18 07/01/18 04:55 04:55 WBC 5.2 RBC 4.63 Hgb 14.4 Hct 42.2 MCV 91.1 MCH 31.0 MCHC 34.1 RDW 13.1 Plt Count 192 Neut % (Auto) 50.1 Lymph % (Auto) 36.8 [place] % (Auto) 10.8 Eos % (Auto) 1.6 L Baso % (Auto) 0.7 Neut # (Auto) 2600 Lymph # (Auto) 1900 [place] # (Auto) 600 Eos # (Auto) 100 Baso # (Auto) 0 Sodium 136 L Potassium 3.9 Chloride 102 Carbon Dioxide 29 BUN 19 Creatinine 0.70 Estimated GFR > 60.0 BUN/Creatinine Ratio 27.1 H Glucose 121 H Calcium 9.1 Magnesium 2.1 Total Bilirubin 0.4 AST 19 ALT 30 Alkaline Phosphatase 52 Total Protein 6.3 Albumin 3.6 Globulin 2.7 Albumin/Globulin Ratio 1.3 Discharge Plan Discharge Plan Patient Disposition: Home Discharge comment: You are being discharged home. You have atrial fibrillation or sometimes called an irregular heartbeat. Please follow-up with your PCP, Dr. Mathis, at your scheduled appointment regarding your hospitalization and a possible referral for Cardiology consultation to ensure nothing else can be done. You were prescribed diltiazem 240 mg daily to help control your heart rate (may need to be adjusted in the future) and Xarelto 20 mg daily a blood thinner to protect to against blood clots. You may want to invest in a pulse oximeter at your local pharmacy to help keep track of your heart rate. If you have any stroke or heart attack like symptoms or recurrent symptoms please be seen by a health field care coordinator immediately. Continue aspirin 81 mg daily for stroke and heart attack prevention in addition to Xarelto and may want to discuss this with your PCP Dr. Mathis. Recommend you have a sleep study to assess for obstructive sleep apnea and be treated with a CPAP if so. Discharge Med Rec/Prescriptions Prescriptions: New diltiazem HCl 120 mg Capsule,Extended Release 24hr 240 mg PO DAILY Qty: 60 RF: 0 Xarelto 10 mg Tablet 20 mg PO DAILYCC Qty: 30 RF: 0 Continued aspirin [Adult Aspirin Regimen] 81 mg tablet,delayed release (DR/EC) 81 mg PO DAILY RF: 0 cholecalciferol (vitamin D3) 1,000 unit capsule 1,000 unit PO DAILY RF: 0 Nature's Bounty B-12 2,500 mcg PO DAILY RF: 0 bdhanixl-cne-EZ-lycopen-lutein [Centrum Silver] 0.4-300-250 mg-mcg-mcg tablet 1 tab PO DAILY RF: 0 simvastatin 20 mg tablet 10 mg PO Q DAY Qty: 45 RF: 3 lisinopril 20 mg tablet 20 mg PO QDAY Qty: 90 RF: 3 blood sugar diagnostic [Contour Test Strips] strip .ROUTE .MEDSUPPLY Qty: 100 RF: 0 lancets 33 gauge misc .ROUTE .MEDSUPPLY Qty: 100 RF: 0 atenolol 25 mg tablet 25 mg PO QDAY Qty: 90 RF: 3 hydrochlorothiazide 25 mg tablet 25 mg PO QDAY Qty: 90 RF: 3 metformin 850 mg tablet 850 mg PO BID Qty: 180 RF: 1 Follow up/Referrals: Mk Mathis MD [Primary Care Provider] - 1 Week Provider Discharge Instructions Diet: Carb-consistent/Diabetic, Low-fat, Low-sodium and Low-cholesterol Activity: Activity as tolerated. Visit Report/Discharge Packet Instructions: Atrial Fibrillation, DI for Atrial Fibrillation, Rivaroxaban (By mouth) Discharge Data Primary Care Provider: Mk Mathis Attending Provider: Dilcia Gomez Admit Date/Time: 06/29/18 19:50 Quality VTE Deep Vein Thrombosis/Pulmonary Embolism Present on Admission: No
--- NOTE | 2018-07-01 14:02 | PC.NURSE ---
Discharge instructions and home care handouts reviewed with patient. Patient states understanding and has no further questions or concerns at this time. Patient states he has follow up appointment already scheduled with DR. Mathis on the of this month. IV dc'd intact. Patient waiting for his significant other to come and pick him up. Patient instructed to call MD with questions or concerns, to seek emergent care if symptoms return or worsen, or if patient has new symptoms including signs or symptoms of stroke.
[2018-07-06 18:52] LABS: Apolipoprotein B 76 mg/dL (52-109); Cholesterol, Total 142 mg/dL (<200); HDL Cholesterol 44 mg/dL (>40); Lipoprotein (a) 33 nmol/L (<75); Non- HDL Cholesterol 98 (<130); Triglycerides 103 mg/dL (<150)
== END 2018-07-01 15:11 | disposition home or self-care (01) ==
LOC: ED 19:22 → ICU 06-30 09:27
PROVIDERS: Internal Medicine; Admitting Provider Nurse Practitioner Family; Emergency Provider Emergency Medicine; PCP Student in an Organized Health Care Education/Training Program; Visit Provider Nurse Practitioner Family
DX: I48.2 Chronic atrial fibrillation (principal); R00.2 Palpitations; E11.9 Type 2 diabetes mellitus without complications; E78.5 Hyperlipidemia, unspecified; I10 Essential (primary) hypertension; Z79.84 Long term (current) use of oral hypoglycemic drugs; E66.9 Obesity, unspecified; Z68.36 Body mass index [BMI] 36.0-36.9, adult
CPT/HCPCS: 36415; 36591; 71045; 80048; 80053; 82962; 83690; 83695; 83735; 83880; 84443; 84484; 85025; 85610; 85730; 87797; 93005; 93010; 93306; 96361; 96365; 96366; 96375; 99283; 99285; G0378

== ENCOUNTER → 2018-08-19 09:09 | Outpatient (CLI) | payer MEDICARE, OTHER, SELFPAY ==
[2018-06-29 21:31] VITALS: BMI 35.9
[2018-08-20 16:08] LABS: Fecal Immunochemical Test NOT DETECTED (NOT DETECTED)
== END ==
PROVIDERS: PCP Student in an Organized Health Care Education/Training Program; Visit Provider Student in an Organized Health Care Education/Training Program
DX: Z12.11 Encounter for screening for malignant neoplasm of colon (principal)
CPT/HCPCS: 82274

== ENCOUNTER → 2018-08-20 14:07 | Outpatient (CLI) | payer MEDICARE, OTHER, SELFPAY ==
[2018-06-29 21:31] VITALS: BMI 35.9
[2018-08-24 15:53] LABS: Testosterone Free 66.3 pg/mL (35.0-155.0); Testosterone Total 505 ng/dL (250-1100)
== END ==
PROVIDERS: PCP Student in an Organized Health Care Education/Training Program; Visit Provider Student in an Organized Health Care Education/Training Program
DX: E29.1 Testicular hypofunction (principal)
CPT/HCPCS: 36415; 84402; 84403

== ENCOUNTER 2019-08-30 14:51 | Emergency (ER) | payer MEDICARE, OTHER, SELFPAY ==
[2018-06-29 21:31] VITALS: BMI 35.9
--- NOTE | 2019-08-30 15:01 | DI.RAD.S_ITS ---
PROCEDURE: XR ANKLE LT MIN 3V INDICATIONS: severe ankle pain after injury, felt pop TECHNIQUE: 3 views of the ankle were acquired. COMPARISON: None. FINDINGS: Bones: No displaced fractures or dislocations of the left midfoot or hindfoot are appreciated. There moderate to severe degenerative changes of the subtalar joints and the tibiotalar joint. There is questionable fibrous fusion of the anterior process of the calcaneus with the adjacent navicular. The alignment of the ankle mortise is within normal limits. No suspicious osseous lesions are identified. Soft tissues: No tibiotalar joint effusion. Scattered subcutaneous calcifications along the anterior margin of the left lower leg are present, which may be related to previous injury. Soft tissue swelling about the ankle is identified. IMPRESSION: 1. No acute fractures of the left ankle. 2. Moderate to severe degenerative changes of the hindfoot joints. 3. Questionable fibrous fusion/coalition of the calcaneus and navicular. Dictated by: Renato Ramirez M.D. on 08/30/2019 at 14:32 Approved by: Renato Ramirez M.D. on 08/30/2019 at 14:33
[2019-08-30 15:04] VITALS: BP 144/65; PULSE 70; RESP 18; TEMP 37.1; O2SAT 97; BMI 35.2
--- NOTE | 2019-08-30 15:19 | ED_ITS ---
HPI - Extremity Injury (Lower) General Chief Complaint: Extremity Injury, Lower Stated Complaint: left foot/ lwr leg injury, lots of pain Time Seen by Provider: 08/30/19 14:52 Source: patient Mode of arrival: Ambulatory Limitations: no limitations History of Present Illness HPI Narrative: 69-year-old male former smoker with history of hypertension and cardiac arrhythmia presents with a chief complaint of a left ankle injury suffered yesterday while mowing the lawn. He was walking the lawn and stepped awkwardly and felt pop in his left posterior ankle which has since become much more intense and radiated around to the anterior of his ankle. It hurts worse with palpation or ambulation and he is unable to put any weight on it. He denies any knee or hip pain. He has no history of the same. He is otherwise well and free of complaint. MD complaint: ankle injury Onset (ago): hour(s) Type of Injury: inversion Place: street/outdoors Severity: moderate Relieving factors: immobilization and rest Exacerbating factors: weight bearing, movement and palpation Context: walking Associated symptoms: snap/pop sensation Other symptoms: none Related Data Home Medications Medication Instructions Recorded Confirmed Nature's Rain B-12 2,500 mcg PO DAILY 11/26/17 07/10/18 aspirin 81 mg tablet,delayed 81 mg PO DAILY 11/26/17 07/10/18 release cholecalciferol (vitamin D3) 25 1,000 unit PO DAILY 11/26/17 07/10/18 mcg (1,000 unit) capsule [id number]-hhr-bdijn acid 0.4 1 tab PO DAILY 11/26/17 07/10/18 mg-lycopene 300 mcg-lutein 250 mcg tablet flecainide 50 mg tablet 50 mg PO Q12H 08/20/18 Previous Rx's Medication Instructions Recorded lisinopril 20 mg PO QDAY #90 tab 08/07/17 blood sugar diagnostic #100 each 11/23/17 lancets 33 gauge #100 each 11/23/17 atenolol 25 mg tablet 25 mg PO QDAY #90 tab 02/05/18 diltiazem HCl 240 mg PO DAILY #60 cap 07/01/18 rivaroxaban [Xarelto] 20 mg PO DAILYCC #30 tab 07/01/18 hydrochlorothiazide 25 mg tablet 25 mg PO QDAY #90 tab 02/06/19 metformin 850 mg tablet 850 mg PO BID #180 tab 05/13/19 simvastatin 20 mg tablet 10 mg PO Q DAY #45 tab 08/25/19 hydrocodone-acetaminophen 1 tab PO Q4-6H PRN #15 tab 08/30/19 Allergies Allergy/AdvReac Type Severity Reaction Status Date / Time No Known Drug Allergies Allergy Verified 08/30/19 15:04 Review of Systems Constitutional Constitutional: Denies chills, Denies fatigue, Denies fever(s), Denies frequent falls, Denies lethargy and Denies weakness Eyes Eyes: Denies change in vision, Denies eye discharge, Denies irritation and Denies loss of vision ENT Ears, Nose, Mouth, and Throat: Denies change in voice, Denies dizziness, Denies neck pain, Denies sore throat and Denies throat swelling Cardiovascular Cardiovascular: Denies chest pain, Denies irregular heart rhythm, Denies lightheadedness, Denies palpitations, Denies dyspnea, Denies dyspnea on exertion and Denies orthopnea Respiratory Respiratory: Denies cough, Denies dyspnea, Denies dyspnea on exertion and Denies wheezing Gastrointestinal Gastrointestinal: Denies abdominal pain, Denies change in bowel habits, Denies diarrhea, Denies nausea and Denies vomiting Musculoskeletal Musculoskeletal: Reports joint swelling, Reports limited range of motion, Denies neck pain and Denies numbness Integumentary/Breasts Skin/Breast: Denies pruritus, Denies erythema, Denies rash and Denies wounds Neurologic Neurologic: Denies behavioral changes, Denies confusion, Denies dizziness, Denies frequent falls, Denies loss of vision, Denies numbness and Denies weakness Psychiatric Psychiatric: Denies anxiety, Denies behavioral changes, Denies confusion, Denies depression, Denies homicidal ideation and Denies suicidal ideation Endocrine Endocrine: Denies fatigue, Denies flushing and Denies palpitations Hematologic/Lymphatic Hematologic/Lymphatic: Denies easy bruising Allergic/Immunologic Allergic/Immunologic: Denies urticaria, Denies throat swelling and Denies wheezing Patient History Medical History Chronic back pain (Chronic 1990) Diabetes (Chronic 1997) Foot pain (Resolved 2013) Hyperlipemia (Chronic) Hypertension (Chronic) Plantar fasciitis (Resolved ~08/2013) Surgical History History of back surgery (Resolved) Hx of knee surgery (Resolved 1967) Family History Grandfather Heart disease Grandmother Hypertension Stroke High cholesterol Diabetes mellitus Grandfather Cancer Grandmother Diabetes mellitus Mother No problems noted. Brother Atrial fibrillation Atrial fibrillation, chronic Pacemaker Social History household members: none Smoking Status: Former smoker alcohol intake: current Smoking Status: Former smoker alcohol intake frequency: 0-2 drinks per day Substance Use Type: does not use Exam Narrative Exam Narrative: GENERAL: [69] year old patient appears stated age. Well- nourished, well-developed patient, in mild distress. HEAD: Atraumatic. Normocephalic. EYES: Pupils equal round and reactive. Extraocular motions intact. No scleral icterus. No injection or drainage. ENT: Nose without bleeding, purulent drainage. Throat without erythema, tonsillar hypertrophy or exudate. Airway patent. NECK: Trachea midline. Non tender CARDIOVASCULAR: Regular rate and rhythm without murmurs, gallops, or rubs. RESPIRATORY: Clear to auscultation. Breath sounds equal bilaterally. No wheezes, rales, or rhonchi. GASTROINTESTINAL: Abdomen soft, non-tender, nondistended. EXTREMITIES: No obvious deformity but moderate swelling around left ankle including inferior to medial and lateral malleoli. No step-off of Achilles. Calf squeeze results in painful plantar flexion. No numbness, tingling or weakness. No obvious ligamentous instability BACK: Nontender without deformity or crepitance. No flank tenderness. NEURO: AOx3. SKIN: No rash or erythema of visible areas Initial Vital Signs Initial Vital Signs: Vital Signs Temperature 98.8 F 08/30/19 15:04 Pulse Rate 70 08/30/19 15:04 Respiratory Rate 18 08/30/19 15:04 Blood Pressure 144/65 H 08/30/19 15:04 Pulse Oximetry 97 08/30/19 15:04 Procedures Orthopedic Splinting/Casting Injury #1: Side: left Lower Extremity Injury Location: ankle Lower Extremity Immobilizer: boot orthosis Post splinting neuro exam: intact Post splinting vascular exam: intact Placed by: Nursing Course Orders Ordered: ED Orders 08/30/19 15:01 XR ankle LT min 3V Stat Discontinued Medications Hydrocodone Bitart/Acetaminophen ([place] 5/325) 2 tab PO NOW ONE Stop: 08/30/19 15:35 Last Admin: 08/30/19 15:39 Dose: 2 tab Documented by: KIRSTIE Consultations Consultation #1: call to Dr. Yang. Reviewed Xray and History/Physical. Recommends boot orthosis with a small heel lift, weight bearing as tolerated. Follow up Vital Signs Vital signs: Vital Signs - 8 hr 08/30/19 15:04 08/30/19 16:30 08/30/19 16:31 Temperature 98.8 F Pulse Rate 70 63 Respiratory Rate 18 Blood Pressure 144/65 H 131/61 Pulse Oximetry 97 99 MDM - Extremity Injury (Lower) Imaging Data Extremity x-ray #1: Attestation: I personally reviewed and interpreted this imaging study as follows: My Impression: No obvious fracture. Mortise normal. Degenerative changes. Discharge Plan Departure Patient Disposition: Home Clinical Impression: Ankle injury Qualifiers: Encounter type: initial encounter Laterality: left Qualified Code(s): S99.912A - Unspecified injury of left ankle, initial encounter Discharge Date/Time: 08/30/19 16:33 Instructions: DI for Ankle Pain Prescriptions: New hydrocodone-acetaminophen 5-325 mg tablet 1 tab PO Q4-6H PRN (Reason: pain) Qty: 15 RF: 0 No Action aspirin [Adult Aspirin Regimen] 81 mg tablet,delayed release (DR/EC) 81 mg PO DAILY RF: 0 cholecalciferol (vitamin D3) 1,000 unit capsule 1,000 unit PO DAILY RF: 0 Nature's Bounty B-12 2,500 mcg PO DAILY RF: 0 eoyuhuff-krv-QC-lycopen-lutein [Centrum Silver] 0.4-300-250 mg-mcg-mcg tablet 1 tab PO DAILY RF: 0 lisinopril 20 mg tablet 20 mg PO QDAY Qty: 90 RF: 3 (DME) blood sugar diagnostic [Contour Test Strips] strip See Dose Instructions .ROUTE .MEDSUPPLY Qty: 100 RF: 0 (DME) lancets 33 gauge misc See Dose Instructions .ROUTE .MEDSUPPLY Qty: 100 RF: 0 atenolol 25 mg tablet 25 mg PO QDAY Qty: 90 RF: 3 flecainide 50 mg tablet 50 mg PO Q12H RF: 0 hydrochlorothiazide 25 mg tablet 25 mg PO QDAY Qty: 90 RF: 3 metformin 850 mg tablet 850 mg PO BID Qty: 180 RF: 0 simvastatin 20 mg tablet 10 mg PO Q DAY Qty: 45 RF: 0 diltiazem HCl 120 mg Capsule,Extended Release 24hr 240 mg PO DAILY Qty: 60 RF: 0 Xarelto 10 mg Tablet 20 mg PO DAILYCC Qty: 30 RF: 0 Referrals: Mk Mathis MD [Primary Care Provider] - Luis Yang MD [Physician] -
[2019-08-30] MEDS: HYDROCODONE/ACET 5/325 TABLET 2 TAB PO (15:39)
[2019-08-30 16:30] VITALS: PULSE 63; O2SAT 99
[2019-08-30 16:31] VITALS: BP 131/61
== END 2019-08-30 16:33 | disposition home or self-care (01) ==
PROVIDERS: Emergency Provider Emergency Medicine; PCP Student in an Organized Health Care Education/Training Program
DX: S99.912A Unspecified injury of left ankle, initial encounter (principal)
CPT/HCPCS: 73610; 99283; 99284

== ENCOUNTER → 2019-10-01 07:23 | Outpatient (CLI) | payer MEDICARE, OTHER, SELFPAY ==
[2018-06-29 21:31] VITALS: BMI 35.9
[2019-10-01 08:19] LABS: Hemoglobin A1C% w Est Avg Glu 6.8 % (4.0-6.0)
[2019-10-01 08:33] LABS: Blood Urea Nitrogen 21 mg/dL (9-20); Calcium 9.9 mg/dL (8.4-10.2); Carbon Dioxide 31 mmol/L (22-32); Chloride 101 mmol/L (98-107); Estimated Glomerular Filt Rate > 60.0 mL/min (>60); Glucose 141 mg/dL (80-110); HEMOLYSIS < 15 (0-50); Potassium 4.3 mmol/L (3.4-5.1); Sodium 136 mmol/L (137-145)
[2019-10-01 09:04] LABS: Prostate Specific Antigen Scrn 1.06 ng/mL (0.1-4.0)
== END ==
PROVIDERS: PCP Student in an Organized Health Care Education/Training Program; Referring Provider Student in an Organized Health Care Education/Training Program; Visit Provider Student in an Organized Health Care Education/Training Program
DX: Z12.5 Encounter for screening for malignant neoplasm of prostate (principal); E11.9 Type 2 diabetes mellitus without complications; I10 Essential (primary) hypertension
CPT/HCPCS: 36415; 80048; 83036; G0103

== ENCOUNTER → 2019-10-02 10:03 | Outpatient (CLI) | payer MEDICARE, OTHER, SELFPAY ==
[2018-06-29 21:31] VITALS: BMI 35.9
[2019-10-02 12:39] LABS: Creatinine Urine Random 61.1 mg/dL
[2019-10-02 12:46] LABS: Microalbumi Creatinin Ratio Ur 9.8 ug/mg CR (<30); Microalbumin Urine Random < 0.6 mg/dL (0-1.6)
[2019-10-03 14:36] LABS: Fecal Immunochemical Test Negative (Negative)
== END ==
PROVIDERS: PCP Student in an Organized Health Care Education/Training Program; Referring Provider Student in an Organized Health Care Education/Training Program; Visit Provider Student in an Organized Health Care Education/Training Program
DX: E11.9 Type 2 diabetes mellitus without complications (principal); I10 Essential (primary) hypertension; Z12.11 Encounter for screening for malignant neoplasm of colon
CPT/HCPCS: 82043; 82274; 82570

== ENCOUNTER → 2019-11-07 14:19 | Outpatient (CLI) | payer MEDICARE, OTHER, SELFPAY ==
[2019-11-06 11:29] VITALS: BMI 35.9
--- NOTE | 2019-11-07 | DI.RAD.S_ITS ---
PROCEDURE: XR SHOULDER LT MIN 2V INDICATIONS: LEFT SHOULDER PAIN TECHNIQUE: 3 views of the shoulder were acquired. COMPARISON: None. FINDINGS: Bones: No fractures or dislocations. No suspicious bony lesions. Visualized ribs appear intact. Mild to moderate AC joint osteoarthritis. No trauma found. Superior subluxation of the humeral head is present, to the degree that a rotator cuff tear may be present allowing that subluxation Soft tissues: No suspicious soft tissue calcifications. IMPRESSION: Superior subluxation of the humeral head, AC joint osteoarthritis, possible rotator cuff tear involving the left shoulder. Dictated by: Mitch Guo M.D. on 11/07/2019 at 14:46 Approved by: Mitch Guo M.D. on 11/07/2019 at 14:47
== END ==
PROVIDERS: PCP Student in an Organized Health Care Education/Training Program; Referring Provider Student in an Organized Health Care Education/Training Program; Visit Provider Student in an Organized Health Care Education/Training Program
DX: M25.512 Pain in left shoulder (principal); S43.002A Unspecified subluxation of left shoulder joint, initial encounter; M19.012 Primary osteoarthritis, left shoulder; X58.XXXA Exposure to other specified factors, initial encounter
CPT/HCPCS: 73030

== ENCOUNTER → 2020-04-16 09:47 | Outpatient (CLI) | payer MEDICARE, OTHER, SELFPAY ==
[2019-11-06 11:29] VITALS: BMI 35.9
[2020-04-16 10:24] LABS: Hemoglobin A1C% w Est Avg Glu 6.7 % (4.0-6.0)
== END ==
PROVIDERS: PCP Student in an Organized Health Care Education/Training Program; Referring Provider Student in an Organized Health Care Education/Training Program; Visit Provider Student in an Organized Health Care Education/Training Program
DX: E11.9 Type 2 diabetes mellitus without complications (principal)
CPT/HCPCS: 36415; 83036

== ENCOUNTER → 2020-09-29 15:56 | Outpatient (CLI) | payer MEDICARE, OTHER, SELFPAY ==
[2019-11-06 11:29] VITALS: BMI 35.9
[2020-09-29 16:36] LABS: COVID19 -Nasal RAPID Negative (Negative)
== END ==
PROVIDERS: PCP Student in an Organized Health Care Education/Training Program; Visit Provider Student in an Organized Health Care Education/Training Program
DX: Z20.822 Contact with and (suspected) exposure to COVID-19 (principal)
CPT/HCPCS: 87635; C9803

== ENCOUNTER → 2020-10-11 14:31 | Outpatient (CLI) | payer MEDICARE, OTHER, SELFPAY ==
[2019-11-06 11:29] VITALS: BMI 35.9
[2020-10-11 15:37] LABS: Alanine Aminotransferase 17 IU/L (<50); Albumin 4.1 g/dL (3.5-5.0); Albumin Globulin Ratio 1.4 (1.0-2.8); Alkaline Phosphatase 68 U/L (38-126); Aspartate Aminotransferase 24 IU/L (17-59); BUN Creatinine Ratio 25.9 (6-22); Bilirubin Total 0.3 mg/dL (0.2-1.3); Blood Urea Nitrogen 21 mg/dL (9-20); Calcium 9.8 mg/dL (8.4-10.2); Carbon Dioxide 32 mmol/L (22-32); Chloride 100 mmol/L (98-107); Estimated Glomerular Filt Rate > 60.0 mL/min (>60); Glucose 106 mg/dL (80-110); HEMOLYSIS < 15 (0-50); Potassium 3.7 mmol/L (3.4-5.1); Sodium 139 mmol/L (137-145); Total Protein 7.1 g/dL (6.3-8.2)
[2020-10-11 15:38] LABS: Hemoglobin A1C% w Est Avg Glu 5.7 % (4.0-6.0)
[2020-10-11 17:05] LABS: Creatinine Urine Random 91.9 mg/dL
[2020-10-11 17:44] LABS: Microalbumin Urine Random < 0.6 mg/dL (0-1.6)
== END ==
PROVIDERS: PCP Student in an Organized Health Care Education/Training Program; Referring Provider Physician Assistant; Visit Provider Physician Assistant
DX: I48.0 Paroxysmal atrial fibrillation (principal); E11.9 Type 2 diabetes mellitus without complications
CPT/HCPCS: 36415; 80053; 82043; 82570; 83036

== ENCOUNTER → 2020-11-04 14:08 | Outpatient (CLI) | payer MEDICARE, OTHER, SELFPAY ==
[2019-11-06 11:29] VITALS: BMI 35.9
--- NOTE | 2020-11-04 14:12 | DI.RAD.S_ITS ---
PROCEDURE: XR KNEE RT 3V INDICATIONS: Knee pain TECHNIQUE: 3 views of the knee were acquired. COMPARISON: None. FINDINGS: Bones: No fractures or dislocations. No suspicious bony lesions. Moderate medial and mild patellofemoral compartment narrowing. Periarticular osteophytes are present without gross erosions. Minimal appearance of chondrocalcinosis is present. Soft tissues: Moderate joint effusion. No suspicious soft tissue calcifications. IMPRESSION: Moderate effusion with arthritic medial and patellofemoral compartment narrowing as above. Dictated by: Suzanne Samano M.D. on 11/04/2020 at 16:20 Approved by: Suzanne Samano M.D. on 11/04/2020 at 16:21
== END ==
PROVIDERS: PCP Student in an Organized Health Care Education/Training Program; Referring Provider Student in an Organized Health Care Education/Training Program; Visit Provider Student in an Organized Health Care Education/Training Program
DX: M25.561 Pain in right knee (principal)
CPT/HCPCS: 73562

== ENCOUNTER → 2020-11-17 17:16 | Outpatient (CLI) | payer MEDICARE, OTHER, SELFPAY ==
[2019-11-06 11:29] VITALS: BMI 35.9
[2020-11-18 16:15] LABS: Fecal Immunochemical Test Negative (Negative)
== END ==
PROVIDERS: PCP Student in an Organized Health Care Education/Training Program; Referring Provider Student in an Organized Health Care Education/Training Program; Visit Provider Student in an Organized Health Care Education/Training Program
DX: Z12.11 Encounter for screening for malignant neoplasm of colon (principal)
CPT/HCPCS: 82274

== ENCOUNTER 2021-01-04 19:05 | Emergency (ER) | payer MEDICARE, OTHER, SELFPAY ==
[2019-11-06 11:29] VITALS: BMI 35.9
[2021-01-04 19:31] VITALS: BP 155/73; PULSE 54; RESP 17; TEMP 36.6; O2SAT 99; BMI 33.0
--- NOTE | 2021-01-04 19:59 | DI.RAD.S_ITS ---
PROCEDURE: XR RIBS LT MIN 3V W CXR1V INDICATIONS: fall with pain to rib area TECHNIQUE: 2 views of the left ribs were acquired, along with a single view chest. COMPARISON: None. FINDINGS: Surgical changes and devices: None. Bones and chest wall: Lower lateral rib fracture although the exact level is unclear due to superimposition of the ribs Lungs and pleura: No pleural effusions or pneumothorax. Lungs appear clear. Mediastinum: Mediastinal contours appear normal. Heart size is normal. IMPRESSION: Left lateral lower rib fracture. Dictated by: Duke Gomez M.D. on 01/04/2021 at 20:58 Approved by: Duke Gomez M.D. on 01/04/2021 at 21:00
--- NOTE | 2021-01-04 19:59 | DI.CT.S_ITS ---
PROCEDURE: CT HEAD/BRAIN WO CON INDICATIONS: fall on eliquis TECHNIQUE: Noncontrast 4.5 mm thick angled axial sections acquired from the foramen magnum to the vertex, with coronal and sagittal reformats. For radiation dose reduction, the following was used: automated exposure control, adjustment of mA and/or kV according to patient size. COMPARISON: None. FINDINGS: Image quality: Excellent. CSF spaces: Basal cisterns are patent. No extra-axial fluid collections. The ventricles are symmetric in size and shape. Brain: No intracranial bleeds or masses. There is cerebral volume loss for age, with resultant ventricular and sulcal prominence. There are periventricular and deep white matter chronic small vessel ischemic changes. There is intracranial internal carotid artery atherosclerosis. Skull and face: Calvarium and visualized facial bones appear intact, without suspicious lesions. Sinuses: Visualized sinuses and mastoids are clear. IMPRESSION: No acute intracranial process. Dictated by: Duke Gomez M.D. on 01/04/2021 at 20:43 Approved by: Duke Gomez M.D. on 01/04/2021 at 20:44
--- NOTE | 2021-01-04 22:15 | ED.FALL ---
HPI - Fall General Chief Complaint: Fall Stated Complaint: cut left hand Time Seen by Provider: 01/04/21 22:15 Source: patient Mode of arrival: Ambulatory Limitations: no limitations History of Present Illness HPI Narrative: This is a 70-year-old male who caught his foot car and tripped. Patient landed mostly on his hands and knees cutting his left 5th digit and abrasion on the alternative hand. He also struck his jaw. He does take anticoagulation for AFib. Patient's main complaint is his hand. He also has some left rib pain. He denies any shortness of breath he denies any loss of consciousness, neck or back pain. No shortness of breath. No nausea vomiting or other GI or urinary symptoms. No numbness, tingling or weakness and has full range of motion his finger. Patient states tetanus is up-to-date. Related Data Home Medications Medication Instructions Recorded Confirmed cholecalciferol (vitamin D3) 25 1,000 unit PO DAILY 11/26/17 11/03/20 mcg (1,000 unit) capsule idnhorvi-oho-vscnu acid 0.4 1 tab PO DAILY 11/26/17 11/03/20 mg-lycopene 300 mcg-lutein 250 mcg tablet (Centrum Silver) tadalafil 2.5 mg tablet 2.5 mg PO DAILY 09/16/19 11/03/20 ciprofloxacin 0.3 %-dexamethasone drp EAR-LEFT BID ml 02/24/20 11/03/20 0.1 % ear drops,suspension (Ciprodex) flecainide 100 mg tablet 100 mg PO DAILY tab 11/03/20 11/03/20 rivaroxaban 20 mg tablet (Xarelto) 20 mg PO DAILY tab 11/03/20 11/03/20 Previous Rx's Medication Instructions Recorded atenolol 25 mg tablet 25 mg PO QDAY #90 tab 02/05/18 lancets 33 gauge #250 each 09/12/19 hydrochlorothiazide 25 mg tablet 25 mg PO QDAY #90 tab 01/21/20 Cartia XT 240 mg capsule,extended 240 mg PO DAILY #90 cap NS 02/24/20 release (diltiazem HCl) mometasone 0.1 % topical solution 1 applic TOPICAL DAILY PRN #30 ml 02/24/20 simvastatin 10 mg tablet 10 mg PO DAILY #90 tab 02/24/20 lisinopril 20 mg tablet 20 mg PO QDAY #90 tab 04/20/20 blood sugar diagnostic (Contour #200 ea 10/12/20 Test Strips) hydrocodone 5 mg-acetaminophen 325 1 tab PO QID PRN #14 tab 01/04/21 mg tablet Allergies Allergy/AdvReac Type Severity Reaction Status Date / Time No Known Drug Allergies Allergy Verified 11/03/20 15:07 Review of Systems Review of Systems ROS Unobtainable: All systems reviewed & are unremarkable except as noted in HPI and below Patient History Medical History (Updated 01/04/21 @ 23:48 by Andria Chan DO) Chronic back pain (1990) Diabetes (1997) Foot pain (2013) Hyperlipemia Hypertension Plantar fasciitis (~08/2013) Surgical History History of back surgery Hx of knee surgery (1967) Family History Grandfather Heart disease Grandmother Hypertension Stroke High cholesterol Diabetes mellitus Grandfather Cancer Grandmother Diabetes mellitus Mother No problems noted. Brother Atrial fibrillation Atrial fibrillation, chronic Pacemaker Social History household members: none Smoking Status: Former smoker alcohol intake: current Smoking Status: Former smoker alcohol intake frequency: 0-2 drinks per day Substance Use Type: does not use Exam Narrative Exam Narrative: GEN: Patient appears in mild distress. HEAD: No evidence of trauma, no raccoon/Colbert sign. NECK: Nontender, painless range of motion, trachea midline Negative Nexus criteria, there is no mid line tenderness, distracting injury, altered mental status, neuro deficit, recent EtOH. EYES: PERRLA, EOMI ENT: External inspection normal, trachea is midline, TM's are normal no hemotypanum, Nares are clear, no septal hematoma, no dental or oral injury, airway is normal and with normal occlusion, No bony tenderness RESP: Chest is nontender and has symmetric movement, no ecchymosis, breath sounds are normal no crackles, wheezes or rales CVS: Heart sounds are normal, no murmur noted, No JVD. ABG/GI: Nontender, soft, normal bowel sounds, no distention, no organomegaly, pelvic rock is negative NEURO: Oriented AOx3, neuro is grossly intact, sensation and motor is normal all 4 extremities moving, cranial nerves II through XII are intact, GCS is 15 PSYCH: Normal mood and affect SKIN: Intact, warm and dry, no crepitus and without decubitus BACK: No CVA tenderness, no vertebral tenderness, no step-off's, no crepitus EXT: Patient has laceration of the lateral side of the 5th digit extending on both sides into the deep tissue. No obvious tendon involvement or bony involvement patient has full range of motion with no weakness, AP and 80 duction. Patient has normal sensation throughout the finger with cap refill less than 2 seconds. He has abrasion on his right palm but no other lacerations appreciated. Are nontender, no pedal edema, normal color and temperature, normal range of motion of extremities with normal tendon exam, 2+ pulses in all four extremities. Initial Vital Signs Initial Vital Signs: Vital Signs Temperature 98 F 01/04/21 19:31 Pulse Rate 54 L 01/04/21 19:31 Respiratory Rate 17 01/04/21 19:31 Blood Pressure 155/73 H 01/04/21 19:31 Pulse Oximetry 99 01/04/21 19:31 Procedures Laceration Repair Laceration 1: Site: hand (Fifth finger left hand) Side (If applicable): left Size (cm): 2.4 Description: flap and irregular Depth: simple, single layer Local Anesthetic: lidocaine 1% Amount of anesthesia used (mL): 8 Pre-repair: wound explored, irrigated extensively and deep structures intact Skin layer closed with: nylon Size (cm): 4-0 Number of sutures: 7 Technique: simple, interrupted Course Orders Ordered: Discontinued Medications Hydrocodone Bitart/Acetaminophen (Hydrocodone/Acet 5/325 Tablet) 1 tab PO NOW ONE Stop: 01/04/21 22:24 Last Admin: 01/04/21 22:50 Dose: 1 tab Documented by: DHRUV Lidocaine/Sodium Bicarbonate (Lido 1%/Sod Bicarb 8.4% (10ml) 10 Ml Syringe) 10 ml INJ NOW ONE Stop: 01/04/21 22:24 Last Admin: 01/04/21 22:50 Dose: 10 ml Documented by: DHRUV Vital Signs Vital signs: Vital Signs - 8 hr 01/04/21 23:59 Pulse Rate 54 L Respiratory Rate 16 Blood Pressure 116/55 L Pulse Oximetry 97 MDM - Fall Imaging Data CT scan - head: Radiologist's Impression: [address] [address] [address] Scan Report Signed Patient: Giuseppe Pringle MR#: [id number] : 1950 Acct:[id number] Age/Sex: 70 / M Date of Service: 01/04/21 Loc: ED Accession Number: [id number] ?? Procedure: CT head/brain wo con Ordering Provider: Andria Chan D.O. PROCEDURE:? CT HEAD/BRAIN WO CON ? INDICATIONS:? fall on eliquis ? TECHNIQUE:? Noncontrast 4.5 mm thick angled axial sections acquired from the foramen magnum to the vertex, with coronal and sagittal reformats.? For radiation dose reduction, the following was used:? automated exposure control, adjustment of mA and/or kV according to patient size.? ? COMPARISON:? None. ? FINDINGS:? Image quality:? Excellent.? ? CSF spaces:? Basal cisterns are patent.? No extra-axial fluid collections.? The ventricles are symmetric in size and shape.? ? Brain:? No intracranial bleeds or masses.? There is cerebral volume loss for age, with resultant ventricular and sulcal prominence.? There are periventricular and deep white matter chronic small vessel ischemic changes.? There is intracranial internal carotid artery atherosclerosis.? ? Skull and face:? Calvarium and visualized facial bones appear intact, without suspicious lesions.? ? Sinuses:? Visualized sinuses and mastoids are clear.? ? IMPRESSION:? No acute intracranial process. ? Dictated by: Duke Gomez M.D. on 01/04/2021 at 20:43 ? ? Approved by: Duke Gomez M.D. on 01/04/2021 at 20:44?? Chest x-ray: Radiologist's Impression: [address] [address] XRay Report Signed Patient: Giuseppe Pringle MR#: [id number] : 1950 Acct:[id number] Age/Sex: 70 / M Date of Service: 01/04/21 Loc: ED Accession Number: [id number] ?? Procedure: XR ribs LT min 3V w CXR1V Ordering Provider: Andria Chan D.O. PROCEDURE:? XR RIBS LT MIN 3V W CXR1V ? INDICATIONS:? fall with pain to rib area ? TECHNIQUE:? 2 views of the left ribs were acquired, along with a single view chest.? ? COMPARISON:? None. ? FINDINGS:? ? Surgical changes and devices:? None.? ? Bones and chest wall:? Lower lateral rib fracture although the exact level is unclear due to superimposition of the ribs ? Lungs and pleura:? No pleural effusions or pneumothorax.? Lungs appear clear.? ? Mediastinum:? Mediastinal contours appear normal.? Heart size is normal.? ? IMPRESSION:? Left lateral lower rib fracture. ? Dictated by: Duke Gomez M.D. on 01/04/2021 at 20:58 ? ? Approved by: Duke Gomez M.D. on 01/04/2021 at 21:00?? Discharge Plan Departure Patient Disposition: Home Clinical Impression: Fracture of rib, Laceration of hand, Abrasion hand, Fall Instructions: DI for Rib Fracture, DI for Laceration Repair -- Simple Activity Restrictions/Additional Instructions: You may take pain medication 1 tablet every 6 hours as needed. This medication can make you sleepy do not drive, perform hazardous activities or make any major decisions while taking it. This medication will make you constipated please take a stool softener once to twice daily until stools are soft and regular. Prescription sent to [facility] in [place]. Wound Care: Keep wound(s) clean and dry. Wash daily with soap and water only. Do not use over the counter products (alcohol or peroxide)on the wounds unless instructed by a physician. If wound condition worsens (increased/expanding redness, developing fluid blisters, or worsening pain), either contact your doctor for an urgent re-assessment , or return to the Emergency Department. Return to the Emergency Department for any new or worsening symptoms. Return to the ED, urgent care, or vist a primary care doctor for removal or suture or prudencio 7-10 days. Return if fever greater than 100.4 Fahrenheit, increased swelling, increasing pain or worsening symptoms such as increased discharge or spreading redness. Severe headaches, neck pain, new chest pain or shortness of breath, coughing up blood, new swelling of her hand or other signs of infection or other new or concerning symptoms. Prescriptions: New hydrocodone-acetaminophen 5-325 mg tablet 1 tab PO QID PRN (Reason: pain) Qty: 14 0RF No Action cholecalciferol (vitamin D3) 1,000 unit capsule 1,000 unit PO DAILY 0RF dlreriti-mur-ZC-lycopen-lutein [Centrum Silver] 0.4-300-250 mg-mcg-mcg tablet 1 tab PO DAILY 0RF atenolol 25 mg tablet 25 mg PO QDAY Qty: 90 3RF (DME) lancets 33 gauge misc See Dose Instructions .ROUTE .MEDSUPPLY Qty: 250 3RF Dose Instruction: As directed Rx Instructions: Test blood sugar twice a day. hydrochlorothiazide 25 mg tablet 25 mg PO QDAY Qty: 90 3RF lisinopril 20 mg tablet 20 mg PO QDAY Qty: 90 3RF (DME) Contour Test Strips Strip See Dose Instructions .ROUTE .MEDSUPPLY Qty: 200 3RF Dose Instruction: As directed Rx Instructions: Test blood sugar twice a day tadalafil 2.5 mg tablet 2.5 mg PO DAILY 0RF flecainide 100 mg tablet 100 mg PO DAILY 0RF Xarelto 20 mg tablet 20 mg PO DAILY 0RF Label Comments: take 1 tablet by mouth once daily mometasone 0.1 % solution 1 applic topical DAILY PRN (Reason: skin irritation) Qty: 30 11RF ciprofloxacin-dexamethasone [Ciprodex] 0.3-0.1 % drops,suspension EAR-LEFT BID 0RF simvastatin 10 mg tablet 10 mg PO DAILY Qty: 90 3RF diltiazem HCl [Cartia XT] 240 mg capsule,extended release 24hr 240 mg PO DAILY Qty: 90 3RF Referrals: Mk Mathis MD [Primary Care Provider] -
[2021-01-04 22:20] VITALS: BP 141/74; PULSE 53; O2SAT 99
[2021-01-04] MEDS: LIDO 1%/SOD BICARB 8.4% (10ML) 10 ML SYRINGE INJ (22:50)
[2021-01-04] MEDS: HYDROCODONE/ACET 5/325 TABLET 1 TAB PO (22:50)
[2021-01-04 23:59] VITALS: BP 116/55; PULSE 54; RESP 16; O2SAT 97
== END 2021-01-05 00:01 | disposition home or self-care (01) ==
PROVIDERS: Emergency Provider Emergency Medicine; PCP Student in an Organized Health Care Education/Training Program
DX: S61.217A Laceration without foreign body of left little finger without damage to nail, initial encounter (principal); S22.32XA Fracture of one rib, left side, initial encounter for closed fracture; S60.511A Abrasion of right hand, initial encounter; W01.0XXA Fall on same level from slipping, tripping and stumbling without subsequent striking against object, initial encounter; Z79.01 Long term (current) use of anticoagulants
CPT/HCPCS: 12001; 70450; 71101; 99283

== ENCOUNTER → 2021-02-25 12:10 | Outpatient (CLI) | payer MEDICARE, OTHER, SELFPAY ==
[2019-11-06 11:29] VITALS: BMI 35.9
[2021-02-25 13:54] LABS: Hemoglobin A1C% w Est Avg Glu 6.5 % (4.0-6.0)
== END ==
PROVIDERS: PCP Student in an Organized Health Care Education/Training Program; Referring Provider Student in an Organized Health Care Education/Training Program; Visit Provider Student in an Organized Health Care Education/Training Program
DX: E11.9 Type 2 diabetes mellitus without complications (principal); Z01.83 Encounter for blood typing
CPT/HCPCS: 36415; 83036; 86900; 86901

== ENCOUNTER 2021-06-21 22:26 | Emergency (ER) | payer MEDICARE, OTHER, SELFPAY ==
[2019-11-06 11:29] VITALS: BMI 35.9
[2021-06-21 22:44] VITALS: BP 162/70; PULSE 57; RESP 16; TEMP 36.8; O2SAT 98; BMI 37.0
[2021-06-21 23:08] VITALS: PULSE 58; O2SAT 98
[2021-06-21 23:10] VITALS: BP 137/63; PULSE 57; O2SAT 97
[2021-06-21 23:30] VITALS: BP 126/61; PULSE 54; RESP 17; O2SAT 96
[2021-06-22] VITALS: BP 125/58; PULSE 52; RESP 18; O2SAT 94
[2021-06-22 00:30] VITALS: BP 123/60; PULSE 52; RESP 19; O2SAT 93
[2021-06-22 01:00] VITALS: BP 125/60; PULSE 53; RESP 18; O2SAT 93
--- NOTE | 2021-06-22 01:29 | ED_ITS ---
HPI - Neck Pain/Injury General Chief Complaint: Neck Pain/Injury Stated Complaint: Neck pain Time Seen by Provider: 06/22/21 01:24 Source: patient and family (spouse) Mode of arrival: Ambulatory Limitations: no limitations History of Present Illness HPI Narrative: This is a 70-year-old male comes emergency department with complaint of neck pain patient states it originally started on the left side of his neck , 5 days ago and then has since moved to the right side of his neck and has become worse. Patient states movement such as meditation and flexion extension exacerbate the pain. It does not radiate. Patient denies any trauma, no recent injuries or even tweaking his neck or back. He denies any numbness, tingling or weakness. No difficulty with watch crystal edge grinder. No loss of bladder control. He has had any swelling or changes to the skin. He has not had persistent or some molar symptoms in the past. Patient took Tylenol at 3:00 p.m. as his last pain medication. Denies fevers or chills. No cold, cough or congestion. No chest pain. No radiation of pain to the shoulder, down his arm or chest or back. Patient denies any other GI or urinary symptoms. He does have a history of atrial fibrillation he is anticoagulated on Xarelto. Denies any surgeries. Denies tobacco, he does drink alcohol, denies illicit. Related Data Home Medications Medication Instructions Recorded Confirmed cholecalciferol (vitamin D3) 25 1,000 unit PO DAILY 11/26/17 11/03/20 mcg (1,000 unit) capsule zkjamugo-pus-jfbiu acid 0.4 1 tab PO DAILY 11/26/17 11/03/20 mg-lycopene 300 mcg-lutein 250 mcg tablet (Centrum Silver) ciprofloxacin 0.3 %-dexamethasone drp EAR-LEFT BID ml 02/24/20 11/03/20 0.1 % ear drops,suspension (Ciprodex) flecainide 100 mg tablet 100 mg PO DAILY tab 11/03/20 11/03/20 rivaroxaban 20 mg tablet (Xarelto) 20 mg PO DAILY tab 11/03/20 11/03/20 Previous Rx's Medication Instructions Recorded atenolol 25 mg tablet 25 mg PO QDAY #90 tab 02/05/18 lancets 33 gauge #250 each 09/12/19 Cartia XT 240 mg capsule,extended 240 mg PO DAILY #90 cap NS 02/24/20 release (diltiazem HCl) mometasone 0.1 % topical solution 1 applic TOPICAL DAILY PRN #30 ml 02/24/20 blood sugar diagnostic (Contour #200 ea 10/12/20 Test Strips) hydrocodone 5 mg-acetaminophen 325 1 tab PO QID PRN #14 tab 01/04/21 mg tablet hydrochlorothiazide 25 mg tablet 25 mg PO QDAY #90 tab 01/07/21 simvastatin 10 mg tablet 10 mg PO DAILY #90 tab 02/21/21 lisinopril 20 mg tablet 20 mg PO QDAY #90 tab 04/04/21 tadalafil 2.5 mg tablet 2.5 mg PO DAILY #90 tab 04/26/21 diazepam 10 mg tablet (Valium) 10 mg PO TID PRN 1 Days #10 tab 06/22/21 tramadol 50 mg tablet (Ultram) 50 mg PO Q6H PRN #10 tab 06/22/21 Allergies Allergy/AdvReac Type Severity Reaction Status Date / Time No Known Drug Allergies Allergy Verified 11/03/20 15:07 Review of Systems Review of Systems ROS Unobtainable: All systems reviewed & are unremarkable except as noted in HPI and below Patient History Medical History (Updated 06/22/21 @ 01:43 by Andria Chan DO) Chronic back pain (1990) Diabetes (1997) Foot pain (2013) Hyperlipemia Hypertension Plantar fasciitis (~08/2013) Surgical History History of back surgery Hx of knee surgery (1967) Family History Grandfather Heart disease Grandmother Hypertension Stroke High cholesterol Diabetes mellitus Grandfather Cancer Grandmother Diabetes mellitus Mother No problems noted. Brother Atrial fibrillation Atrial fibrillation, chronic Pacemaker Social History household members: none Smoking Status: Former smoker alcohol intake: current Smoking Status: Former smoker alcohol intake frequency: 0-2 drinks per day Substance Use Type: does not use Exam Narrative Exam Narrative: GENERAL: Alert and oriented x three, male in moderate distress. HEENT: Head normocephalic, atraumatic, EOMI, pupils reactive, face symmetric, moist mucous membranes NECK: Supple, full range of motion CARDIOVASCULAR: Regular rate and rhythm without murmurs, rubs or gallops. RESPIRATORY: Breath sounds equal bilaterally, no wheezes rales or rhonchi. ABDOMEN: Soft, nontender. Normoactive bowel sounds all 4 quadrants. No guarding or rebound, rigidity, no mass : No CVA tenderness BACK: No cervical, thoracic vertebral point tenderness. Patient has slightly decreased range of motion. Patient has some xwxn-fr-rkhzmeiq tenderness over the right paraspinal muscles. No bony tenderness throughout the neck. Strength is 5/5 in upper extremities, watch crystal edge grinder pupil by bilaterally, 2+ radial pulses bilaterally, Sensation is intact bilateral upper extremities. EXTREMITIES: Normal range of motion, no clubbing or edema. Neurovascularly intact NEUROLOGICAL: Cranial nerves II through XII grossly intact. Moving all extremities SKIN: Warm, dry, no petechiae, no rashes or lesions. Initial Vital Signs Initial Vital Signs: Vital Signs Temperature 98.2 F 06/21/21 22:44 Pulse Rate 57 L 06/21/21 22:44 Respiratory Rate 16 06/21/21 22:44 Blood Pressure 162/70 H 06/21/21 22:44 Pulse Oximetry 98 06/21/21 22:44 Course Orders Ordered: Discontinued Medications Diazepam (Diazepam 5 Mg Tablet) 10 mg PO NOW ONE Stop: 06/22/21 01:39 Last Admin: 06/22/21 01:43 Dose: 10 mg Documented by: CELENA Ketorolac Tromethamine (Ketorolac 30 Mg/Ml Vial) 30 mg IM NOW ONE Stop: 06/22/21 01:39 Last Admin: 06/22/21 01:43 Dose: 30 mg Documented by: CELENA Vital Signs Vital signs: Vital Signs - 8 hr 06/21/21 22:44 06/21/21 23:08 06/21/21 23:10 Temperature 98.2 F Pulse Rate 57 L 58 L 57 L Respiratory Rate 16 Blood Pressure 162/70 H 137/63 Pulse Oximetry 98 98 97 06/21/21 23:30 06/22/21 00:00 06/22/21 00:30 Temperature Pulse Rate 54 L 52 L 52 L Respiratory Rate 17 18 19 Blood Pressure 126/61 125/58 L 123/60 Pulse Oximetry 96 94 93 06/22/21 01:00 06/22/21 01:30 Temperature Pulse Rate 53 L 53 L Respiratory Rate 18 19 Blood Pressure 125/60 119/57 L Pulse Oximetry 93 94 MDM - Neck Pain/Injury MDM Narrative Medical decision making narrative: This is a 70-year-old male with reproducible neck pain on exam the soft tissue. Patient denies any recent trauma or injuries. He had Tylenol about 3:00 p.m. in the afternoon. No red flag symptoms. Plan for pain control, re-evaluation and follow-up with primary care. Discharge Plan Departure Patient Disposition: Home Clinical Impression: Neck pain Instructions: DI for Neck Pain Activity Restrictions/Additional Instructions: Follow-up with your physician for recheck. You may take ibuprofen up to 600 mg every 6 hours and/or Tylenol up to a 1000 mg every 6 hours. Take muscle relaxer 1 tablet every 8 hours as needed. If this is inadequate for pain control you may take 1-2 tablets of narcotic pain medication every 6 hours as needed. This medication can make you sleepy do not drive, perform hazardous activities or make any major decisions while taking it. This medication will make you constipated please take a stool softener once to twice daily until stools are soft and regular. Prescription sent to [facility]. Please return for rapidly worsening symptoms, passing out, severe headaches, new numbness, tingling or weakness, difficulty with watch crystal edge grinder or movement of your arm, any chest pain or shortness of breath, persistent vomiting or other new or concerning symptoms. Prescriptions: New diazepam [Valium] 10 mg tablet 10 mg PO TID PRN (Reason: muscle spasm) 1 Days Qty: 10 0RF tramadol [Ultram] 50 mg tablet 50 mg PO Q6H PRN (Reason: pain) Qty: 10 0RF No Action cholecalciferol (vitamin D3) 1,000 unit capsule 1,000 unit PO DAILY 0RF wkxthihi-smx-FF-lycopen-lutein [Centrum Silver] 0.4-300-250 mg-mcg-mcg tablet 1 tab PO DAILY 0RF atenolol 25 mg tablet 25 mg PO QDAY Qty: 90 3RF (DME) lancets 33 gauge misc See Dose Instructions .ROUTE .MEDSUPPLY Qty: 250 3RF Dose Instruction: As directed Rx Instructions: Test blood sugar twice a day. (DME) Contour Test Strips Strip See Dose Instructions .ROUTE .MEDSUPPLY Qty: 200 3RF Dose Instruction: As directed Rx Instructions: Test blood sugar twice a day hydrochlorothiazide 25 mg tablet 25 mg PO QDAY Qty: 90 2RF simvastatin 10 mg tablet 10 mg PO DAILY Qty: 90 2RF lisinopril 20 mg tablet 20 mg PO QDAY Qty: 90 1RF Rx Instructions: PT DUE FOR YEARLY APPT/CHECK IN Junior/[facility] COM[facility] 10/2021. PLEASE CALL TO SET UP [facility] APPT. THANK YOU 04/04/21 tadalafil 2.5 mg tablet 2.5 mg PO DAILY Qty: 90 2RF flecainide 100 mg tablet 100 mg PO DAILY 0RF Xarelto 20 mg tablet 20 mg PO DAILY 0RF Label Comments: take 1 tablet by mouth once daily mometasone 0.1 % solution 1 applic topical DAILY PRN (Reason: skin irritation) Qty: 30 11RF ciprofloxacin-dexamethasone [Ciprodex] 0.3-0.1 % drops,suspension EAR-LEFT BID 0RF diltiazem HCl [Cartia XT] 240 mg capsule,extended release 24hr 240 mg PO DAILY Qty: 90 3RF hydrocodone-acetaminophen 5-325 mg tablet 1 tab PO QID PRN (Reason: pain) Qty: 14 0RF Referrals: Mk Mathis MD [Primary Care Provider] -
[2021-06-22 01:30] VITALS: BP 119/57; PULSE 53; RESP 19; O2SAT 94
[2021-06-22] MEDS: diazePAM 5 MG TABLET 10 MG PO (01:43)
[2021-06-22] MEDS: KETOROLAC 30 MG/ML VIAL IM (01:43)
== END 2021-06-22 02:10 | disposition home or self-care (01) ==
PROVIDERS: Emergency Provider Emergency Medicine; PCP Student in an Organized Health Care Education/Training Program
DX: M54.2 Cervicalgia (principal)
CPT/HCPCS: 96372; 99283; 99284; J1885

== ENCOUNTER → 2021-09-12 07:45 | Outpatient (CLI) | payer MEDICARE, OTHER, SELFPAY ==
[2019-11-06 11:29] VITALS: BMI 35.9
[2021-09-12 09:33] LABS: Hemoglobin A1C% w Est Avg Glu 6.6 % (4.0-6.0)
== END ==
PROVIDERS: PCP Student in an Organized Health Care Education/Training Program; Referring Provider Student in an Organized Health Care Education/Training Program; Visit Provider Student in an Organized Health Care Education/Training Program
DX: E11.9 Type 2 diabetes mellitus without complications (principal)
CPT/HCPCS: 36415; 83036

== ENCOUNTER → 2022-01-06 07:23 | Outpatient (CLI) | payer MEDICARE, OTHER, SELFPAY ==
[2019-11-06 11:29] VITALS: BMI 35.9
[2022-01-06 08:37] LABS: Alanine Aminotransferase 27 IU/L (<50); Albumin 4.1 g/dL (3.5-5.0); Albumin Globulin Ratio 1.4 (1.0-2.8); Alkaline Phosphatase 73 U/L (38-126); Aspartate Aminotransferase 24 IU/L (17-59); BUN Creatinine Ratio 22.2 (6-22); Bilirubin Total 0.4 mg/dL (0.2-1.3); Blood Urea Nitrogen 16 mg/dL (9-20); Calcium 9.5 mg/dL (8.4-10.2); Carbon Dioxide 29 mmol/L (22-32); Chloride 98 mmol/L (98-107); Estimated Glomerular Filt Rate > 60 mL/min (>60); Globulin 2.9 g/dL (1.7-4.1); Glucose 134 mg/dL (80-110); HEMOLYSIS < 15 (0-50); Potassium 4.3 mmol/L (3.4-5.1); Sodium 134 mmol/L (137-145)
== END ==
PROVIDERS: PCP Student in an Organized Health Care Education/Training Program; Referring Provider Physician Assistant; Visit Provider Physician Assistant
DX: I48.0 Paroxysmal atrial fibrillation (principal)
CPT/HCPCS: 36415; 80053

== ENCOUNTER → 2022-01-25 09:19 | Outpatient (CLI) | payer MEDICARE, OTHER, SELFPAY ==
[2019-11-06 11:29] VITALS: BMI 35.9
[2022-01-25 17:54] LABS: BUN Creatinine Ratio 25.3 (6-22); Blood Urea Nitrogen 19 mg/dL (9-20); Calcium 9.4 mg/dL (8.4-10.2); Carbon Dioxide 30 mmol/L (22-32); Chloride 98 mmol/L (98-107); Estimated Glomerular Filt Rate > 60 mL/min (>60); Glucose 162 mg/dL (80-110); HEMOLYSIS < 15 (0-50); Potassium 4.2 mmol/L (3.4-5.1); Sodium 136 mmol/L (137-145)
[2022-01-25 18:06] LABS: Hemoglobin A1C% w Est Avg Glu 6.8 % (4.0-6.0)
[2022-01-25 18:58] LABS: Creatinine Urine Random 62.8 mg/dL
[2022-01-25 19:04] LABS: Microalbumi Creatinin Ratio Ur 11.1 ug/mg CR (<30); Microalbumin Urine Random 0.7 mg/dL (0-1.6)
== END ==
PROVIDERS: PCP Student in an Organized Health Care Education/Training Program; Referring Provider Student in an Organized Health Care Education/Training Program; Visit Provider Student in an Organized Health Care Education/Training Program
DX: E11.69 Type 2 diabetes mellitus with other specified complication (principal); E11.9 Type 2 diabetes mellitus without complications; E78.5 Hyperlipidemia, unspecified
CPT/HCPCS: 36415; 80048; 82043; 82570; 83036

== ENCOUNTER → 2022-06-23 14:56 | Outpatient (CLI) | payer MEDICARE, OTHER, SELFPAY ==
[2019-11-06 11:29] VITALS: BMI 35.9
[2022-06-23 19:05] LABS: Add Manual Diff / Slide Review NO; Basophils Absolute Auto 100 /uL (0-100); Basophils Percent Auto 0.7 % (0-2); Eosinophils Absolute Auto 100 /uL (0-450); Eosinophils Percent Auto 0.8 % (2-4); Hematocrit 42.7 % (41-53); Hemoglobin 14.8 g/dL (13.5-17.5); Lymphocytes Absolute Auto 2400 /uL (1100-4500); Lymphocytes Percent Auto 33.9 % (25-40); Mean Corpuscular HGB Conc 34.7 % (30-36); Mean Corpuscular Hemoglobin 30.9 PG (26-34); Mean Corpuscular Volume 88.9 fL (80-100); Monocytes Absolute Auto 600 /uL (0-900); Monocytes Percent Auto 8.5 % (3-14); Neutrophils Absolute Auto 4000 /uL (1500-7000); Neutrophils Percent Auto 56.1 % (50-75); Platelet Count 232 X10^3/uL (150-400); Red Cell Distribution Width 13.6 % (11.6-14.8); White Blood Cell Count 7.2 X10^3/uL (4.5-11.0)
[2022-06-23 19:29] LABS: BUN Creatinine Ratio 25.3 (6-22); Blood Urea Nitrogen 20 mg/dL (9-20); Calcium 9.3 mg/dL (8.4-10.2); Carbon Dioxide 33 mmol/L (22-32); Chloride 97 mmol/L (98-107); Estimated Glomerular Filt Rate > 60 mL/min (>60); Glucose 127 mg/dL (80-110); HEMOLYSIS < 15 (0-50); Sodium 136 mmol/L (137-145)
== END ==
PROVIDERS: PCP Student in an Organized Health Care Education/Training Program; Referring Provider Internal Medicine Cardiovascular Disease; Visit Provider Internal Medicine Cardiovascular Disease
DX: I48.0 Paroxysmal atrial fibrillation (principal)
CPT/HCPCS: 36415; 80048; 85025

== ENCOUNTER → 2022-06-26 09:18 | Outpatient (CLI) | payer MEDICARE, OTHER, SELFPAY ==
[2019-11-06 11:29] VITALS: BMI 35.9
--- NOTE | 2022-06-26 09:19 | DI.RAD.S_ITS ---
PROCEDURE: XR KNEE RT 3V INDICATIONS: Re-assess knee osteoarthritis TECHNIQUE: 3 views of the knee were acquired. COMPARISON: None. FINDINGS: Bones: No fractures or dislocations. Wggs-gt-zxjviimz tricompartmental osteoarthritis is seen most notably in medial femoral tibial compartment. No suspicious bony lesions. Soft tissues: Moderate suprapatellar joint effusion is seen. No suspicious soft tissue calcifications. IMPRESSION: Mwka-yz-xnbldanv tricompartmental osteoarthritis and moderate suprapatellar joint effusion. No fracture or dislocation. If indicated, MRI of knee can be done for evaluation of internal derangement. Dictated by: Sohan Pena M.D. on 06/26/2022 at 10:41 Approved by: Sohan Pena M.D. on 06/26/2022 at 10:49
== END ==
PROVIDERS: PCP Student in an Organized Health Care Education/Training Program; Referring Provider Student in an Organized Health Care Education/Training Program; Visit Provider Student in an Organized Health Care Education/Training Program
DX: M17.11 Unilateral primary osteoarthritis, right knee (principal); M25.461 Effusion, right knee
CPT/HCPCS: 73562

== ENCOUNTER → 2022-07-19 07:06 | Outpatient (CLI) | payer MEDICARE, OTHER, SELFPAY ==
[2019-11-06 11:29] VITALS: BMI 35.9
[2022-07-19 07:44] LABS: Add Manual Diff / Slide Review NO; Basophils Absolute Auto 0 /uL (0-100); Basophils Percent Auto 0.7 % (0-2); Eosinophils Absolute Auto 100 /uL (0-450); Eosinophils Percent Auto 1.3 % (2-4); Hematocrit 41.8 % (41-53); Hemoglobin 14.2 g/dL (13.5-17.5); Lymphocytes Absolute Auto 2000 /uL (1100-4500); Lymphocytes Percent Auto 35.4 % (25-40); Mean Corpuscular Hemoglobin 30.8 PG (26-34); Mean Corpuscular Volume 90.5 fL (80-100); Monocytes Absolute Auto 500 /uL (0-900); Neutrophils Absolute Auto 3100 /uL (1500-7000); Neutrophils Percent Auto 54.6 % (50-75); Platelet Count 216 X10^3/uL (150-400); Red Blood Cell Count 4.62 X10^6/uL (4.5-5.9); Red Cell Distribution Width 14.4 % (11.6-14.8); White Blood Cell Count 5.8 X10^3/uL (4.5-11.0)
[2022-07-19 08:09] LABS: BUN Creatinine Ratio 28.2 (6-22); Blood Urea Nitrogen 20 mg/dL (9-20); Carbon Dioxide 33 mmol/L (22-32); Chloride 99 mmol/L (98-107); Estimated Glomerular Filt Rate > 60 mL/min (>60); Glucose 172 mg/dL (80-110); HEMOLYSIS < 15 (0-50); Potassium 4.3 mmol/L (3.4-5.1); Sodium 135 mmol/L (137-145)
[2022-07-20 08:13] LABS: x Labcorp Estim. Avg Glu (eAG) 180 mg/dL (.); x Labcorp Hemoglobin A1c 7.9 % (4.8-5.6)
== END ==
PROVIDERS: PCP Student in an Organized Health Care Education/Training Program; Referring Provider Internal Medicine Cardiovascular Disease; Visit Provider Internal Medicine Cardiovascular Disease
DX: E11.9 Type 2 diabetes mellitus without complications (principal); I48.0 Paroxysmal atrial fibrillation; E11.69 Type 2 diabetes mellitus with other specified complication; E78.5 Hyperlipidemia, unspecified
CPT/HCPCS: 36415; 80048; 83036; 85025

== ENCOUNTER → 2022-07-26 12:44 | Outpatient (CLI) | payer MEDICARE, OTHER, SELFPAY ==
[2019-11-06 11:29] VITALS: BMI 35.9
--- NOTE | 2022-07-26 12:46 | DI.CT.S_ITS ---
PROCEDURE: CT UE LT WO CON INDICATIONS: Primary osteoarthritis, left shoulder TECHNIQUE: Noncontrast 1-1.5 mm thick sections acquired from the acromioclavicular joint to the inferior scapula, with coronal and sagittal reformatting. COMPARISON: None. FINDINGS: Image quality: Excellent. Bones: Moderate to severe acromioclavicular joint and glenohumeral joint osteoarthritic changes are seen with significant joint space narrowing, subchondral sclerosis and prominent marginal osteophyte formations. No acute fracture or dislocation is seen. No suspicious bony lesions. The visualized left upper ribs are intact. Soft tissues: There is significant loss of subcoracoid space concerning for high-grade partial to full-thickness rupture of distal supraspinatus. Severe supraspinatus muscle atrophy is noted on sagittal views. Moderate infraspinatus and teres minor muscle atrophy is also noted. No abnormal soft tissue calcifications. Moderate joint effusion and subacromial subdeltoid bursal fluid is seen. No definite intra-articular loose bodies. IMPRESSION: 1. Moderate to severe acromioclavicular joint and glenohumeral joint osteoarthritis. No fracture or dislocation. No suspicious bony lesions. 2. Suggestion of high-grade partial to full-thickness rupture involving distal supraspinatus near its insertion on the humeral head. Severe supraspinatus muscle atrophy. Moderate infraspinatus and teres minor muscle atrophy. 3. Moderate amount of joint effusion and subacromial subdeltoid bursal fluid. No abnormal soft tissue calcifications. Dictated by: Sohan Pena M.D. on 07/26/2022 at 14:09 Approved by: Sohan Pena M.D. on 07/26/2022 at 14:50
== END ==
PROVIDERS: Referring Provider Orthopaedic Surgery; Visit Provider Orthopaedic Surgery
DX: M19.012 Primary osteoarthritis, left shoulder (principal); M25.412 Effusion, left shoulder
CPT/HCPCS: 73200

== ENCOUNTER → 2022-10-24 06:49 | Outpatient (CLI) | payer MEDICARE, OTHER, SELFPAY ==
[2019-11-06 11:29] VITALS: BMI 35.9
[2022-10-24 08:39] LABS: Add Manual Diff / Slide Review NO; Basophils Absolute Auto 0 /uL (0-100); Basophils Percent Auto 0.7 % (0-2); Eosinophils Absolute Auto 100 /uL (0-450); Eosinophils Percent Auto 1.8 % (2-4); Hematocrit 41.5 % (41-53); Hemoglobin 14.1 g/dL (13.5-17.5); Lymphocytes Absolute Auto 2200 /uL (1100-4500); Lymphocytes Percent Auto 35.9 % (25-40); Mean Corpuscular HGB Conc 33.9 % (30-36); Mean Corpuscular Hemoglobin 30.8 PG (26-34); Mean Corpuscular Volume 90.9 fL (80-100); Monocytes Absolute Auto 600 /uL (0-900); Monocytes Percent Auto 9.5 % (3-14); Neutrophils Absolute Auto 3100 /uL (1500-7000); Neutrophils Percent Auto 52.1 % (50-75); Platelet Count 211 X10^3/uL (150-400); Red Blood Cell Count 4.56 X10^6/uL (4.5-5.9); Red Cell Distribution Width 13.3 % (11.6-14.8)
[2022-10-24 08:49] LABS: BUN Creatinine Ratio 24.6 (6-22); Blood Urea Nitrogen 17 mg/dL (9-20); Calcium 9.5 mg/dL (8.4-10.2); Carbon Dioxide 32 mmol/L (22-32); Chloride 100 mmol/L (98-107); Estimated Glomerular Filt Rate > 60 mL/min (>60); Glucose 130 mg/dL (80-110); HEMOLYSIS < 15 (0-50); Potassium 4.7 mmol/L (3.4-5.1); Sodium 137 mmol/L (137-145)
== END ==
PROVIDERS: PCP Family Medicine; Referring Provider Internal Medicine Cardiovascular Disease; Visit Provider Internal Medicine Cardiovascular Disease
DX: I48.0 Paroxysmal atrial fibrillation (principal)
CPT/HCPCS: 36415; 80048; 85025

== ENCOUNTER → 2022-11-20 06:50 | Outpatient (CLI) | payer MEDICARE, OTHER, SELFPAY ==
[2019-11-06 11:29] VITALS: BMI 35.9
[2022-11-20 08:47] LABS: BUN Creatinine Ratio 33.8 (6-22); Blood Urea Nitrogen 23 mg/dL (9-20); Carbon Dioxide 32 mmol/L (22-32); Chloride 100 mmol/L (98-107); Estimated Glomerular Filt Rate > 60 mL/min (>60); Glucose 144 mg/dL (80-110); HEMOLYSIS < 15 (0-50); Potassium 5.1 mmol/L (3.4-5.1); Sodium 138 mmol/L (137-145)
== END ==
PROVIDERS: PCP Family Medicine; Referring Provider Internal Medicine Cardiovascular Disease; Visit Provider Internal Medicine Cardiovascular Disease
DX: I48.0 Paroxysmal atrial fibrillation (principal)
CPT/HCPCS: 36415; 80048

== ENCOUNTER → 2022-12-07 07:13 | Outpatient (CLI) | payer MEDICARE, OTHER, SELFPAY ==
[2019-11-06 11:29] VITALS: BMI 35.9
[2022-12-07 08:01] LABS: BUN Creatinine Ratio 37.1 (6-22); Blood Urea Nitrogen 26 mg/dL (9-20); Calcium 9.9 mg/dL (8.4-10.2); Carbon Dioxide 31 mmol/L (22-32); Chloride 100 mmol/L (98-107); Estimated Glomerular Filt Rate > 60 mL/min (>60); Glucose 119 mg/dL (80-110); HEMOLYSIS < 15 (0-50); Sodium 136 mmol/L (137-145)
== END ==
PROVIDERS: PCP Family Medicine; Referring Provider Physician Assistant Medical; Visit Provider Physician Assistant Medical
DX: I48.0 Paroxysmal atrial fibrillation (principal)
CPT/HCPCS: 36415; 80048

== ENCOUNTER 2022-12-11 12:25 | Emergency (ER) | payer MEDICARE, OTHER, SELFPAY ==
[2019-11-06 11:29] VITALS: BMI 35.9
[2022-12-11] VITALS (8 sets, daily range): BP systolic 131–177; BP diastolic 59–74; PULSE 48–55; RESP 16–23; TEMP 36.2; O2SAT 97–99; BMI 35.9
[2022-12-11 13:01] LABS: INR 2.1 (0.9-1.3); Prothrombin Time 24.6 SECONDS (10.1-12.7)
[2022-12-11 13:04] LABS: PTT Partial Thromboplastin Tim 36 SECONDS (26-36)
[2022-12-11 13:05] LABS: Add Manual Diff / Slide Review NO; Alanine Aminotransferase 23 IU/L (<50); Albumin 4.3 g/dL (3.5-5.0); Albumin Globulin Ratio 1.4 (1.0-2.8); Alkaline Phosphatase 70 U/L (38-126); Aspartate Aminotransferase 26 IU/L (17-59); BUN Creatinine Ratio 39.4 (6-22); Basophils Absolute Auto 0 /uL (0-100); Basophils Percent Auto 0.6 % (0-2); Bilirubin Total 0.3 mg/dL (0.2-1.3); Blood Urea Nitrogen 26 mg/dL (9-20); Calcium 9.8 mg/dL (8.4-10.2); Carbon Dioxide 25 mmol/L (22-32); Chloride 101 mmol/L (98-107); Eosinophils Absolute Auto 0 /uL (0-450); Eosinophils Percent Auto 0.6 % (2-4); Estimated Glomerular Filt Rate > 60 mL/min (>60); Glucose 97 mg/dL (80-110); HEMOLYSIS < 15 (0-50); Hematocrit 35.9 % (41-53); Hemoglobin 12.3 g/dL (13.5-17.5); Lymphocytes Absolute Auto 1900 /uL (1100-4500); Lymphocytes Percent Auto 27.1 % (25-40); Mean Corpuscular HGB Conc 34.4 % (30-36); Mean Corpuscular Hemoglobin 30.8 PG (26-34); Mean Corpuscular Volume 89.6 fL (80-100); Monocytes Absolute Auto 500 /uL (0-900); Monocytes Percent Auto 7.3 % (3-14); Neutrophils Absolute Auto 4600 /uL (1500-7000); Neutrophils Percent Auto 64.4 % (50-75); Platelet Count 214 X10^3/uL (150-400); Potassium 3.9 mmol/L (3.4-5.1); Red Cell Distribution Width 13.2 % (11.6-14.8); Sodium 134 mmol/L (137-145); Total Protein 7.3 g/dL (6.3-8.2); White Blood Cell Count 7.1 X10^3/uL (4.5-11.0)
--- NOTE | 2022-12-11 15:28 | DI.CT.S_ITS ---
PROCEDURE: CT ANGIO ABDOMEN PELVIS INDICATIONS: NUMEROUS BLOODY BOWEL MOVEMENTS TECHNIQUE: After the administration of intravenous contrast, 2.5 mm thick sections acquired from the diaphragm to the symphysis. 10 mm maximum-intensity projection (MIP) reformats were then acquired. For radiation dose reduction, the following was used: automated exposure control. COMPARISON: None. FINDINGS: Image quality: Excellent. Aorta: Scattered atherosclerotic wall calcifications are present. No aneurysmal dilation, dissection or hemodynamically significant stenosis. Mesenteric arteries: Celiac trunk, superior and inferior mesenteric arteries appear patent. Right pelvic arteries: Widely patent. Left pelvic arteries: Widely patent. Extravascular soft tissues: Lung bases are clear. Heart size is normal. Liver is normal in size and enhancement. Simple hepatic cysts. Hepatic steatosis is present. Gallbladder is unremarkable . Biliary system is non dilated. Pancreas enhances normally. Spleen is normal in size and enhancement. No adrenal nodules. Kidneys are normal in size and enhancement, without hydronephrosis. Non opacified bowel loops are normal in wall thickness and caliber. Colonic diverticula are present without inflammatory change. No free fluid or air. No retroperitoneal or mesenteric adenopathy. No ventral hernias. No suspicious bony lesions. No vertebral body compression fractures. Prostate gland is enlarged. IMPRESSION: Diverticulosis. No inflammation. Dictated by: Suzanne Samano M.D. on 12/11/2022 at 16:29 Approved by: Suzanne Samano M.D. on 12/11/2022 at 16:31
--- NOTE | 2022-12-11 15:31 | PC.NURSE ---
Patient reports approx 12 bloody bowel movements. Patient denies pain, nausea or vomiting. Denies any dizziness.
--- NOTE | 2022-12-11 15:32 | ED_ITS ---
HPI - GI Bleed General Chief complaint: GI Bleed Stated complaint: rectal bleeding Time Seen by Provider: 12/11/22 14:59 History of Present Illness HPI Narrative: 72-year-old male with history of AFib on Xarelto presents by private vehicle from home for 3 days of bright red blood in his stool. Patient states that on Sunday he had several episodes of bloody bowel movements with that filled the toilet bowl. He noticed a gradual improvement over Sunday, but this morning had another episode of bloody stools and so he decided to present for evaluation. Patient states something similar happened last year and he underwent colonoscopy with resection of 2 polyps. He states he was subsequently given the all clear by GI and stated he did not need another colonoscopy for several years. He denies abdominal pain, fatigue, shortness of breath, other complaints at this time. Related Data Home Medications Medication Instructions Recorded Confirmed cholecalciferol (vitamin D3) 25 1,000 unit PO DAILY 11/26/17 11/16/22 mcg (1,000 unit) capsule ynnmvvmv-lcl-ntjzj acid 0.4 1 tab PO DAILY 11/26/17 11/16/22 mg-lycopene 300 mcg-lutein 250 mcg tablet (Centrum Silver) rivaroxaban 20 mg tablet (Xarelto) 20 mg PO DAILY 11/03/20 11/16/22 diltiazem HCl 120 mg 120 mg PO BID 06/26/22 11/16/22 capsule,extended release 24 hr (Cartia XT) metoprolol succinate 25 mg 25 mg PO DAILY 06/26/22 11/16/22 tablet,extended release 24 hr acetaminophen 325 mg tablet 325 mg PO Q6H PRN 11/16/22 11/16/22 (Tylenol) flecainide 100 mg tablet 100 mg PO BID 11/16/22 11/16/22 furosemide 20 mg tablet 20 mg PO DAILY 11/16/22 11/16/22 pantoprazole 40 mg tablet,delayed 40 mg PO DAILY 11/16/22 11/16/22 release potassium chloride 10 mEq 10 meq PO DAILY 11/16/22 11/16/22 tablet,extended release Previous Rx's Medication Instructions Recorded lancets 33 gauge #250 ea 09/12/19 blood sugar diagnostic (Contour #200 ea 10/12/20 Test Strips) tadalafil 2.5 mg tablet 2.5 mg PO DAILY #90 tabs 01/18/22 hydrochlorothiazide 25 mg tablet 25 mg PO QDAY #90 tabs 07/03/22 metformin 850 mg tablet 850 mg PO BID #180 tabs 10/13/22 simvastatin 10 mg tablet See Rx Instructions .Route 11/22/22 .COMPLEX #90 tabs lisinopril 20 mg tablet See Rx Instructions .Route 11/27/22 .COMPLEX #90 tabs peg 3350-electrolytes 236 240 ml PO Q10M #4,000 mL 12/12/22 gram-22.74 gram-6.74 gram-5.86 gram solution (Golytely) Allergies Allergy/AdvReac Type Severity Reaction Status Date / Time No Known Drug Allergies Allergy Verified 11/16/22 14:50 Review of Systems Review of Systems Narrative: Negative except as marked Patient History Medical History Chronic back pain (1990) Diabetes (1997) Foot pain (2013) Hyperlipemia Hypertension Leg edema Plantar fasciitis (~08/2013) Surgical History History of back surgery Hx of knee surgery (1967) Family History Grandfather Heart disease Grandmother Hypertension Stroke High cholesterol Diabetes mellitus Grandfather Cancer Grandmother Diabetes mellitus Mother No problems noted. Brother Atrial fibrillation Atrial fibrillation, chronic Pacemaker Social History household members: none Smoking Status: Former smoker alcohol intake: current Smoking Status: Former smoker alcohol intake frequency: 0-2 drinks per day Substance Use Type: does not use Exam Initial Vital Signs Initial Vital Signs: Vital Signs Temperature 97.2 F L 12/11/22 12:27 Pulse Rate 48 L 12/11/22 12:27 Respiratory Rate 18 12/11/22 12:27 Blood Pressure 136/63 12/11/22 12:27 Pulse Oximetry 99 12/11/22 12:27 Oxygen Delivery Method Room Air 12/11/22 12:27 Const: Awake, alert, no acute distress, nontoxic appearing Eyes: PERRL, EOMI, conjunctiva normal ENT: Atraumatic, dentition normal, mucous membranes moist Cardiac: regular rate, regular rhythm RESP: unlabored, clear bilaterally, no wheezing GI: Atraumatic, soft, nontender, nondistended, no rebound, no guarding MSK: Atraumatic, full range of motion, pulses equal Rectal: Sheep Sorter present, dark red blood in rectal vault Skin: Warm, Dry, intact, no rashes Neuro: AO x3, CN II-XII grossly intact, moves all extremities Psych: affect normal, mood normal, not suicidal, not homicidal Course Course Course Narrative: Nontoxic-appearing male presenting for bloody bowel movements. Hemodynamically stable. He is on Xarelto. Recent colonoscopy, however he states he was subsequently given the all clear by GI. Orders Ordered: Discontinued Medications Ondansetron HCl (Ondansetron 4 Mg/2 Ml Inj) 4 mg IV NOW PRN PRN Reason: Nausea And Vomiting Ondansetron HCl (Ondansetron 4 Mg Odt) 4 mg SL NOW PRN PRN Reason: Nausea And Vomiting Pantoprazole Sodium (Pantoprazole 40 Mg Vial) 80 mg IV NOW ONE Stop: 12/11/22 12:39 Last Admin: 12/11/22 15:51 Dose: Not Given Documented By: [facility] Reevaluation(s) Reevaluation #1: Laboratory work shows mild drop in hemoglobin, however not near transfusion threshold. CT mesenteric study shows no acute bleeds, diverticulosis seen on CT scan. Probable diverticular bleed. Discussed case with adoption social worker surgery, who stated that patient would need to be off of his Xarelto before a colonoscopy could be performed. She states that if patient is comfortable going off of his Xarelto then he could follow up in the clinic later this week for a screening colonoscopy. Case discussed with patient, he states he feels otherwise well and is comfortable going off of his Xarelto for several days until he can be seen by surgery for colonoscopy. Patient was counseled on all of his lab and imaging findings and given strict ED return precautions and signs to look out for acute anemia. ED return precautions discussed at bedside. Patient expressed understanding of the plan and is in agreement at this time. All questions answered at the time of discharge. Vital Signs Vital signs: Vital Signs - 8 hr 12/11/22 12:27 12/11/22 15:07 12/11/22 15:30 Temperature 97.2 F L Pulse Rate 48 L 49 L 54 L Respiratory Rate 18 16 22 Blood Pressure 136/63 137/64 Pulse Oximetry 99 99 97 Oxygen Delivery Method Room Air 12/11/22 15:31 12/11/22 15:31 12/11/22 15:47 Temperature Pulse Rate 52 L 55 L Respiratory Rate 18 18 Blood Pressure 131/59 L Pulse Oximetry 97 99 Oxygen Delivery Method 12/11/22 15:47 12/11/22 16:00 12/11/22 16:00 Temperature Pulse Rate 53 L Respiratory Rate 18 Blood Pressure 131/63 132/69 Pulse Oximetry 99 Oxygen Delivery Method MDM - GI Bleed Lab Data 12/11/22 12:40 12/11/22 12:40 Labs: Lab Results 12/11/22 Range/Units 12:40 WBC 7.1 (4.5-11.0) X10^3/uL RBC 4.00 L (4.5-5.9) X10^6/uL Hgb 12.3 L (13.5-17.5) g/dL Hct 35.9 L (41-53) % MCV 89.6 (80-100) fL MCH 30.8 (26-34) PG MCHC 34.4 (30-36) % RDW 13.2 (11.6-14.8) % Plt Count 214 (150-400) X10^3/uL Neut % (Auto) 64.4 (50-75) % Lymph % (Auto) 27.1 (25-40) % Simpson % (Auto) 7.3 (3-14) % Eos % (Auto) 0.6 L (2-4) % Baso % (Auto) 0.6 (0-2) % Neut # (Auto) 4600 (6446-1358) /uL Lymph # (Auto) 1900 (4364-1568) /uL Simpson # (Auto) 500 (0-900) /uL Eos # (Auto) 0 (0-450) /uL Baso # (Auto) 0 (0-100) /uL PT 24.6 H (10.1-12.7) SECONDS INR 2.1 H (0.9-1.3) APTT 36 (26-36) SECONDS Sodium 134 L (137-145) mmol/L Potassium 3.9 (3.4-5.1) mmol/L Chloride 101 (98-107) mmol/L Carbon Dioxide 25 (22-32) mmol/L BUN 26 H (9-20) mg/dL Creatinine 0.66 (0.66-1.25) mg/dL Estimated GFR > 60 (>60) mL/min BUN/Creatinine Ratio 39.4 H (6-22) Glucose 97 (80-110) mg/dL Calcium 9.8 (8.4-10.2) mg/dL Total Bilirubin 0.3 (0.2-1.3) mg/dL AST 26 (17-59) IU/L ALT 23 (<50) IU/L Alkaline Phosphatase 70 (38-126) U/L Total Protein 7.3 (6.3-8.2) g/dL Albumin 4.3 (3.5-5.0) g/dL Globulin 3.0 (1.7-4.1) g/dL Albumin/Globulin Ratio 1.4 (1.0-2.8) Blood Type B Negative Antibody Screen Negative Urine Dip Bedside Urine Glucose Negative Bedside Urine Bilirubin - Negative Bedside Urine Ketone - Negative Urine Specific [place] 1.010 Bedside Urine Occult Blood - Negative Bedside Urine pH 6.0 Bedside Urine Protein - Negative Bedside Urine Urobilinogen - Negative Bedside Urine Nitrite - Negative Bedside Urine Leukocytes - Negative Esterase Discharge Plan Departure Patient Disposition: Home Clinical Impression: Acute lower gastrointestinal bleeding Instructions: Gastrointestinal Bleeding Activity Restrictions/Additional Instructions: STOP TAKING YOUR XARELTO. CALL THE SURGEONS OFFICE VÍCTOR TO SCHEDULE AN APPOINTMENT Prescriptions: No Action cholecalciferol (vitamin D3) 1,000 unit capsule 1,000 unit PO DAILY meqlnhii-trc-ZE-lycopen-lutein [Centrum Silver] 0.4-300-250 mg-mcg-mcg tablet 1 tab PO DAILY (DME) lancets 33 gauge misc See Dose Instructions .ROUTE .MEDSUPPLY Qty: 250 3RF Dose Instruction: As directed Rx Instructions: Test blood sugar twice a day. (DME) Contour Test Strips Strip See Dose Instructions .ROUTE .MEDSUPPLY Qty: 200 3RF Dose Instruction: As directed Rx Instructions: Test blood sugar twice a day tadalafil 2.5 mg tablet 2.5 mg PO DAILY Qty: 90 1RF hydrochlorothiazide 25 mg tablet 25 mg PO QDAY Qty: 90 2RF metformin 850 mg tablet 850 mg PO BID Qty: 180 3RF simvastatin 10 mg tablet See Rx Instructions .ROUTE .COMPLEX Qty: 90 2RF Dose Instruction: TAKE ONE TABLET BY MOUTH NIGHTLY AT BEDTIME Rx Instructions: TAKE ONE TABLET BY MOUTH NIGHTLY AT BEDTIME lisinopril 20 mg tablet See Rx Instructions .ROUTE .COMPLEX Qty: 90 1RF Dose Instruction: TAKE ONE TABLET BY MOUTH ONE TIME DAILY Rx Instructions: TAKE ONE TABLET BY MOUTH ONE TIME DAILY peg 3350-electrolytes [Golytely] 236-22.74-6.74 -5.86 gram recon soln 240 ml PO Q10M Qty: 4000 0RF Rx Instructions: take as directed by Physician Xarelto 20 mg tablet 20 mg PO DAILY Patient Comments: take 1 tablet by mouth once daily diltiazem HCl [Cartia XT] 120 mg capsule,extended release 24hr 120 mg PO BID Patient Comments: TAKE TWO CAPSULES BY MOUTH DAILY metoprolol succinate 25 mg tablet extended release 24 hr 25 mg PO DAILY furosemide 20 mg tablet 20 mg PO DAILY potassium chloride 10 mEq tablet extended release 10 meq PO DAILY pantoprazole 40 mg tablet,delayed release (DR/EC) 40 mg PO DAILY acetaminophen [Tylenol] 325 mg tablet 325 mg PO Q6H PRN flecainide 100 mg tablet 100 mg PO BID Referrals: Rafaela Escamilla MD [Physician] - Domo Ku DO [Primary Care Provider] - Stand Alone Forms: Patient Portal/API
== END 2022-12-11 17:13 | disposition home or self-care (01) ==
PROVIDERS: Emergency Provider Emergency Medicine; PCP Family Medicine
DX: K92.2 Gastrointestinal hemorrhage, unspecified (principal); Z79.899 Other long term (current) drug therapy
CPT/HCPCS: 36415; 74174; 80053; 81003; 85025; 85610; 85730; 86850; 86900; 86901; 99283; 99284; Q9967

== ENCOUNTER 2022-12-15 09:44 | Day surgery (SDC) | payer MEDICARE, OTHER, SELFPAY ==
[2019-11-06 11:29] VITALS: BMI 35.9
[2022-12-15 10:08] VITALS: BMI 35.9
[2022-12-15] MEDS: LACTATED RINGERS 1,000 ML 150 ML IV (10:19)
[2022-12-15 10:20] VITALS: BP 136/63; PULSE 70; RESP 21; TEMP 36.7; O2SAT 98
--- NOTE | 2022-12-15 10:50 | PM.HP.1 ---
History of Present Illness History of Present Illness Date Patient Seen: 12/15/22 Time Patient Seen: 10:50 Chief complaint: Dx Colonoscopy w/poss bx Narrative: Recent ER visit for rectal bleeding, on anticoagulant. No bleeding since seen in ED and has been off the anticoagulant. He has had 3 scopes in a little over a year for these dramatic bleeding episodes. [facility] Medical History Leg edema Hyperlipemia Hypertension Plantar fasciitis (~08/2013) Chronic back pain (1990) Foot pain (2013) Diabetes (1997) Surgical History History of back surgery Hx of knee surgery (1967) Family History Grandfather Heart disease Grandmother Hypertension Stroke High cholesterol Diabetes mellitus Grandfather Cancer Grandmother Diabetes mellitus Mother No problems noted. Brother Atrial fibrillation Atrial fibrillation, chronic Pacemaker Social History household members: spouse and none Smoking Status: Former smoker alcohol intake: current Meds Home Medications and Allergies Home Medications Medication Instructions Recorded Confirmed Type cholecalciferol (vitamin D3) 25 1,000 unit PO DAILY 11/26/17 12/15/22 History mcg (1,000 unit) capsule nyxurewv-hkh-dbfxm acid 0.4 1 tab PO DAILY 11/26/17 12/15/22 History mg-lycopene 300 mcg-lutein 250 mcg tablet (Centrum Silver) lancets 33 gauge #250 ea 09/12/19 11/16/22 Rx blood sugar diagnostic (Contour #200 ea 10/12/20 11/16/22 Rx Test Strips) rivaroxaban 20 mg tablet (Xarelto) 20 mg PO DAILY 11/03/20 12/15/22 History diltiazem HCl 120 mg 120 mg PO BID 06/26/22 12/15/22 History capsule,extended release 24 hr (Cartia XT) metoprolol succinate 25 mg 25 mg PO DAILY 06/26/22 12/15/22 History tablet,extended release 24 hr hydrochlorothiazide 25 mg tablet 25 mg PO QDAY #90 tabs 07/03/22 12/15/22 Rx metformin 850 mg tablet 850 mg PO BID #180 tabs 10/13/22 12/15/22 Rx acetaminophen 325 mg tablet 325 mg PO Q6H PRN Pain (Scale 11/16/22 12/15/22 History (Tylenol) Score 1-3) flecainide 100 mg tablet 100 mg PO BID 11/16/22 12/15/22 History furosemide 20 mg tablet 20 mg PO DAILY 11/16/22 12/15/22 History pantoprazole 40 mg tablet,delayed 40 mg PO DAILY 11/16/22 12/15/22 History release potassium chloride 10 mEq 10 meq PO DAILY 11/16/22 12/15/22 History tablet,extended release simvastatin 10 mg tablet See Rx Instructions .Route 11/22/22 12/15/22 Rx .COMPLEX #90 tabs lisinopril 20 mg tablet See Rx Instructions .Route 11/27/22 12/15/22 Rx .COMPLEX #90 tabs tadalafil 2.5 mg tablet (Cialis) 2.5 mg PO DAILY 12/15/22 History Allergies Allergy/AdvReac Type Severity Reaction Status Date / Time No Known Drug Allergies Allergy Verified 12/15/22 10:01 Review of Systems Review of Systems ROS: Yes All systems reviewed with the patient and are negative except as otherwise documented Exam Vital Signs (past 8 hours): - 12/15/22 10:20 Temperature 98.0 F Pulse Rate 70 Respiratory Rate 21 Blood Pressure 136/63 Pulse Oximetry 98 Oxygen Delivery Method Room Air Oxygen Delivery Method Room Air Const Nutritional Appearance: overweight HENMT Head: normocephalic and atraumatic Eyes Sclera: sclerae normal Neck Neck: trachea midline Resp Effort & Inspection: normal respiratory effort, able to speak in complete sentences and normal respiratory pattern Cardio Rate: regular rate Rhythm: abnormal rhythm GI Palpation: soft and No tender Skin General: atrophy Neuro General: patient alert, patient awake and patient oriented x3 Cognition: normal cognition Psych Appearance: grossly normal Mental Status: mental status grossly normal Judgment: judgment good Assessment & Plan Assessment & Plan narrative: Rectal bleeding Plan: colonoscopy with hemorrhoid banding. Time Spent With Patient Time with patient: less than 30 minutes
--- NOTE | 2022-12-15 11:42 | P.OP.COLON_ITS ---
Operative Date/Time/Diagnoses Date of procedure: 12/15/22 Time of procedure: 11:42 Pre-op diagnosis: Rectal bleeding Post-op diagnosis: same Procedure & Clinicians Study performed: Colonoscopy followed by anoscopy with hemorrhoid banding Same procedure as scheduled: Yes Indications: Bright red blood per rectum Surgeon: Rafaela Escamilla Procedure Notes Procedure in detail: Preop diagnosis: Bright red blood per rectum Postop diagnosis: Same Operative procedure: Colonoscopy followed by anoscopy with hemorrhoid banding x3 with anesthesia Surgeon: Reva Escamilla MD Findings: Significant diverticulosis in the descending colon both small and medium size. Grade 2-3 internal hemorrhoids with no active bleeding. Interesting finding of old blood in the colon suggestive of possible upper GI source IE gastritis. Recent symptoms clearly indicate lower GI bleed. Procedure: Patient placed in lateral position. Rectal exam performed showing normal tone no masses. Colonoscope inserted into rectum advanced to ileocecal valve with minimal difficulty. Insufflation and extraction of the scope and the above findings. Anoscopy performed to display 3 columns of internal hemorrhoids. Anterior and right lateral columns banded without complication. Assessment and plan: I would increase his PPI to twice a day, I am concerned that he has gastritis that contributes to a dark blood found in the colon today. The bright red blood he experienced earlier this week originates either from his diverticular disease versus his hemorrhoids. There is no active bleeding today. Hemorrhoid banding done. Would restart his anticoagulant, and follow closely by PCP for dark stool and or recurrent bright red blood per rectum. Findings: divertiulosis, internal hemorrhoids and other findings (dark partic ulate throughout colon) Specimen(s): none sent Complications: none Post-procedure Plan for aftercare: restart anticoagulant If BRBPR recurs, we are looking at diverticular bleed and less likely hemorrhoidal since they are banded. Follow up with PCP 2 weeks for recheck of anemia Increase PPI to BID for 8 weeks. Follow up: weeks Disposition: PACU
[2022-12-15 11:45] VITALS: BP 109/62; PULSE 57; RESP 16; TEMP 36.8; O2SAT 98
[2022-12-15 11:50] VITALS: BP 143/69; PULSE 57; RESP 16; O2SAT 99
[2022-12-15 12:00] VITALS: BP 143/69; PULSE 66; RESP 16; TEMP 36.8; O2SAT 98
[2022-12-15 12:13] VITALS: BP 131/60; PULSE 59; RESP 16; O2SAT 98
[2022-12-15 12:24] VITALS: BP 134/78; PULSE 68; RESP 16; TEMP 36.2; O2SAT 98
== END 2022-12-15 12:42 | disposition home or self-care (01) ==
PROVIDERS: PCP Family Medicine; Referring Provider Surgery; Visit Provider Surgery
PROC: 0DJD8ZZ Inspection of Lower Intestinal Tract, Via Natural or Artificial Opening Endoscopic (ICD-10-PCS; CPT 45378; principal; 2022-12-15 10:45)
DX: K92.2 Gastrointestinal hemorrhage, unspecified (principal); K64.2 Third degree hemorrhoids; K57.30 Diverticulosis of large intestine without perforation or abscess without bleeding
CPT/HCPCS: 45378; 46221; J2704

== ENCOUNTER → 2023-07-06 09:08 | Outpatient (CLI) | payer MEDICARE, OTHER, SELFPAY ==
[2019-11-06 11:29] VITALS: BMI 35.9
[2023-07-06 10:20] LABS: Add Manual Diff / Slide Review NO; Basophils Absolute Auto 0 /uL (0-100); Basophils Percent Auto 0.7 % (0-2); Eosinophils Absolute Auto 100 /uL (0-450); Eosinophils Percent Auto 1.1 % (2-4); Hematocrit 38.6 % (41-53); Hemoglobin 12.6 g/dL (13.5-17.5); Lymphocytes Absolute Auto 2000 /uL (1100-4500); Lymphocytes Percent Auto 31.3 % (25-40); Mean Corpuscular HGB Conc 32.8 % (30-36); Mean Corpuscular Hemoglobin 25.9 PG (26-34); Mean Corpuscular Volume 78.9 fL (80-100); Monocytes Absolute Auto 600 /uL (0-900); Monocytes Percent Auto 9.6 % (3-14); Neutrophils Absolute Auto 3700 /uL (1500-7000); Neutrophils Percent Auto 57.3 % (50-75); Platelet Count 246 X10^3/uL (150-400); Red Blood Cell Count 4.88 X10^6/uL (4.5-5.9); Red Cell Distribution Width 18.4 % (11.6-14.8); White Blood Cell Count 6.5 X10^3/uL (4.5-11.0)
[2023-07-06 14:48] LABS: Hemoglobin A1C% w Est Avg Glu 6.5 % (4.0-6.0)
[2023-07-06 16:02] LABS: Alanine Aminotransferase 22 IU/L (<50); Albumin 4.2 g/dL (3.5-5.0); Albumin Globulin Ratio 1.6 (1.0-2.8); Alkaline Phosphatase 75 U/L (38-126); Aspartate Aminotransferase 25 IU/L (17-59); BUN Creatinine Ratio 27.8 (6-22); Bilirubin Total 0.5 mg/dL (0.2-1.3); Blood Urea Nitrogen 20 mg/dL (9-20); Calcium 9.5 mg/dL (8.4-10.2); Carbon Dioxide 30 mmol/L (22-32); Chloride 100 mmol/L (98-107); Cholesterol 148 mg/dL (140-199); Estimated Glomerular Filt Rate > 60 mL/min (>60); Globulin 2.6 g/dL (1.7-4.1); Glucose 135 mg/dL (80-110); HDL Cholesterol 58 mg/dL (40-60); HEMOLYSIS < 15 (0-50); LDL Cholesterol Calculated 65 mg/dL (<100); Potassium 4.4 mmol/L (3.4-5.1); Sodium 137 mmol/L (137-145); Total Protein 6.8 g/dL (6.3-8.2); Triglycerides 123 mg/dL (35-150)
== END ==
PROVIDERS: PCP Family Medicine; Referring Provider Family Medicine; Visit Provider Family Medicine
DX: I48.91 Unspecified atrial fibrillation (principal); E11.9 Type 2 diabetes mellitus without complications; I10 Essential (primary) hypertension
CPT/HCPCS: 36415; 80053; 80061; 83036; 85025

== ENCOUNTER → 2024-06-19 06:56 | Outpatient (CLI) | payer MEDICARE, OTHER, SELFPAY ==
[2019-11-06 11:29] VITALS: BMI 35.9
--- NOTE | 2024-06-19 06:58 | DI.RAD.S_ITS ---
PROCEDURE: XR HIP W PEL IF DONE RT 2V INDICATIONS: chronic right hip pain TECHNIQUE: 2 views of the hip were acquired. COMPARISON: None. FINDINGS: Bones: No fractures or dislocations. No suspicious bony lesions. The visualized pelvic ring appears intact. Moderate hip joint space narrowing greater on the right. Degenerative changes noted lower lumbar spine Soft tissues: No suspicious soft tissue calcifications or masses. 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 No marginal osteophyte Approved by: Hipolito Rosales M.D. on 06/19/2024 at 17:04
--- NOTE | 2024-06-19 06:58 | DI.RAD.S_ITS ---
PROCEDURE: XR KNEE RT 1TO2V INDICATIONS: chronic right knee pain TECHNIQUE: 3 views of the knee were acquired. COMPARISON: [facility], , XR KNEE RT 3V, 06/26/2022, 9:14. FINDINGS: Bones: No fractures or dislocations. No suspicious bony lesions. Soft tissues: No joint effusion. No suspicious soft tissue calcifications. IMPRESSION: Moderate medial compartment joint space narrowing with medial and lateral marginal osteophytes similar prior Approved by: Hipolito Rosales M.D. on 06/19/2024 at 17:05
[2024-06-19 09:14] LABS: Add Manual Diff / Slide Review NO; Basophils Absolute Auto 0 /uL (0-100); Basophils Percent Auto 0.6 % (0-2); Eosinophils Absolute Auto 100 /uL (0-450); Eosinophils Percent Auto 1.8 % (2-4); Hematocrit 41.4 % (41-53); Hemoglobin 14.3 g/dL (13.5-17.5); Lymphocytes Absolute Auto 1500 /uL (1100-4500); Lymphocytes Percent Auto 33.6 % (25-40); Mean Corpuscular HGB Conc 34.5 % (30-36); Mean Corpuscular Hemoglobin 31.3 PG (26-34); Mean Corpuscular Volume 90.7 fL (80-100); Monocytes Absolute Auto 600 /uL (0-900); Monocytes Percent Auto 13.6 % (3-14); Neutrophils Absolute Auto 2300 /uL (1500-7000); Neutrophils Percent Auto 50.4 % (50-75); Platelet Count 224 X10^3/uL (150-400); Red Blood Cell Count 4.57 X10^6/uL (4.5-5.9); Red Cell Distribution Width 13.2 % (11.6-14.8); White Blood Cell Count 4.6 X10^3/uL (4.5-11.0)
[2024-06-19 09:33] LABS: Hemoglobin A1C% w Est Avg Glu 6.3 % (4.0-6.0)
[2024-06-19 09:36] LABS: HEMOLYSIS < 15 (0-50); Iron 40 ug/dL (49-181)
[2024-06-19 09:48] LABS: Alanine Aminotransferase 23 IU/L (<50); Albumin 4.3 g/dL (3.5-5.0); Albumin Globulin Ratio 1.7 (1.0-2.8); Alkaline Phosphatase 74 U/L (38-126); Aspartate Aminotransferase 27 IU/L (17-59); BUN Creatinine Ratio 29.7 (6-22); Bilirubin Total 0.3 mg/dL (0.2-1.3); Blood Urea Nitrogen 22 mg/dL (9-20); Calcium 9.7 mg/dL (8.4-10.2); Carbon Dioxide 30 mmol/L (22-32); Chloride 100 mmol/L (98-107); Cholesterol 160 mg/dL (140-199); Estimated Glomerular Filt Rate > 60 mL/min (>60); Globulin 2.5 g/dL (1.7-4.1); Glucose 133 mg/dL (70-99); HDL Cholesterol 45 mg/dL (40-60); HEMOLYSIS < 15 (0-50); LDL Cholesterol Calculated 91 mg/dL (<100); Percent Iron Saturation 11 % (20-50); Potassium 4.5 mmol/L (3.4-5.1); Sodium 137 mmol/L (137-145); Total Iron Binding Capacity 360 ug/dL (261-462); Total Protein 6.8 g/dL (6.3-8.2); Transferrin 289 mg/dL (206-381); Triglycerides 118 mg/dL (35-150)
[2024-06-19 10:30] LABS: Vitamin B12 313 pg/mL (239-931)
== END ==
PROVIDERS: PCP Family Medicine; Referring Provider Family Medicine; Visit Provider Family Medicine
DX: M25.551 Pain in right hip (principal); G89.29 Other chronic pain; E11.69 Type 2 diabetes mellitus with other specified complication; M25.561 Pain in right knee; E78.5 Hyperlipidemia, unspecified; I48.91 Unspecified atrial fibrillation; I10 Essential (primary) hypertension
CPT/HCPCS: 36415; 73502; 73560; 80053; 80061; 82607; 83036; 83540; 83550; 85025

== ENCOUNTER → 2024-11-03 08:38 | Outpatient (CLI) | payer MEDICARE, OTHER, SELFPAY ==
[2019-11-06 11:29] VITALS: BMI 35.9
--- NOTE | 2024-11-03 08:44 | EKG_ITS ---
[address] [address] Test Date: 2024-11-03 Pat Name: Giuseppe Pringle Department: [facility] Room: Gender: Male [employer] Specialist: HALEY : 1950 Requested By: Order Number: [id number] Reading MD: Dudley Guadalupe MD Measurements Intervals [place] Rate: 60 P: 71 [place]: 178 QRS: -33 QRSD: 120 T: 18 QT: 418 QTc: 418 Interpretive Statements Normal sinus rhythm Left axis deviation Nonspecific intraventricular conduction delay Electronically Signed On 11-03-2024 15:07:14 PDT by Dudley Guadalupe MD
[2024-11-03 09:10] LABS: Add Manual Diff / Slide Review NO; Hematocrit 42.9 % (41-53); Hemoglobin 14.5 g/dL (13.5-17.5); Lymphocytes Absolute Auto 1900 /uL (1100-4500); Mean Corpuscular HGB Conc 33.9 % (30-36); Mean Corpuscular Hemoglobin 30.2 PG (26-34); Mean Corpuscular Volume 89.3 fL (80-100); Platelet Count 234 X10^3/uL (150-400)
[2024-11-03 09:27] LABS: Albumin 4.3 g/dL (3.5-5.0); Blood Urea Nitrogen 23 mg/dL (9-20); Calcium 9.6 mg/dL (8.4-10.2); Carbon Dioxide 28 mmol/L (22-32); Chloride 99 mmol/L (98-107); Estimated Glomerular Filt Rate > 60 mL/min (>60); Glucose 140 mg/dL (70-99); HEMOLYSIS < 15 (0-50); Potassium 4.2 mmol/L (3.4-5.1); Sodium 136 mmol/L (137-145)
[2024-11-03 09:29] LABS: Hemoglobin A1C% w Est Avg Glu 6.7 % (4.0-6.0)
[2024-11-03 09:37] LABS: Prealbumin 23.1 mg/dL (17.6-36.0)
[2024-11-03 09:45] LABS: Vitamin D 25 Hydroxy (D3) 66.4 ng/mL (30.0-100.0)
== END ==
PROVIDERS: PCP Family Medicine; Referring Provider Orthopaedic Surgery Adult Reconstructive Orthopaedic Surgery; Visit Provider Orthopaedic Surgery Adult Reconstructive Orthopaedic Surgery
DX: Z01.818 Encounter for other preprocedural examination (principal); E55.9 Vitamin D deficiency, unspecified; R73.09 Other abnormal glucose
CPT/HCPCS: 36415; 80048; 82040; 82306; 83036; 84134; 85025; 93005; 93010

== ENCOUNTER 2024-12-22 09:53 | Day surgery (SDC) | payer MEDICARE, OTHER, SELFPAY ==
[2019-11-06 11:29] VITALS: BMI 35.9
[2024-12-12 08:38] VITALS: BMI 36.0
[2024-12-22] VITALS (9 sets, daily range): BP systolic 118–170; BP diastolic 59–77; PULSE 57–64; RESP 12–21; TEMP 35.5–37; O2SAT 94–99; BMI 35.6
--- NOTE | 2024-12-22 | DI.RAD.S_ITS ---
PROCEDURE: XR HIP W PEL IF DONE RT 2V
[2024-12-22] MEDS: MELOXICAM 7.5 MG TABLET PO ×2 (10:43→10:44)
[2024-12-22] MEDS: ACETAMINOPHEN 325 MG TABLET 975 MG PO (10:44)
[2024-12-22] MEDS: LACTATED RINGERS 1,000 ML 42 ML IV (10:45)
--- NOTE | 2024-12-22 11:15 | P.OP.PRE_ITS ---
Pre-operative Note
--- NOTE | 2024-12-22 11:15 | PM.PREOP ---
Pre-operative Note Interval Note History & Physical reviewed/Exam performed by Physician: Yes Changes to H&P: No
--- NOTE | 2024-12-22 11:47 | DI.RAD.S_ITS ---
PROCEDURE: XR HIP W PEL IF DONE RT 2V
--- NOTE | 2024-12-22 13:23 | SUR.OPER ---
Supine on padded [place] table with bilateral legs secured in padded positioning boots and suspended in positioning spars, operative leg in traction per surgeon. Head on one pillow. Arm on non-operative side secured on padded armboard <90 degrees abduction. Arm on operative side padded and resting across chest then secured with tape over sheet. Padded perineal post in place per surgeon. Provider approved final positioning
[2024-12-22] MEDS: BUPivacaine 0.25% W/ EPI (PF) 30 ML VIAL 60 ML INJ (13:42)
[2024-12-22] MEDS: KETOROLAC 30 MG/ML VIAL 15 MG IV (13:43)
[2024-12-22] MEDS: TRANEXAMIC ACID 1,000 MG in SODIUM CHLORIDE 0.9% 100 ML 200 MG IV (13:58)
--- NOTE | 2024-12-22 14:32 | P.OP_ITS ---
Operative Date/Time/Diagnoses
--- NOTE | 2024-12-22 14:32 | PM.OP.1 ---
Operative Date/Time/Diagnoses Date of procedure: 12/22/24 Time of procedure: 13:00 Pre-op diagnosis: Right hip osteoarthritis Post-op diagnosis: same Procedure & Clinicians Procedure: Right total hip arthroplasty Same procedure(s) as scheduled: Yes Surgeon: Hipolito Mo Assisted?: Yes Integrated Circuits Inspector: Ruth Yancey Anesthesia Type: General, Spinal and Local Operative Notes Findings: Severe arthritis Closure Type: primary Applied: implant(s) Estimated Blood Loss (mL): 250 Procedure in detail: 1. Right Uncemented Direct Anterior Cameron Total Hip Arthroplasty (48195) 2. Computer-Assisted Musculoskeletal Surgical Navigational Orthopedic Procedure Using Fluoroscopic Image Guidance (0054T) Implants: G7 PPS size 64 cup? Z1 femoral stem size 7 high offset? 40 mm +3.5 ceramic femoral head? Procedure Summary: This 74-year-old male patient has very large anatomy, with a 64 mm cup being placed during this primary surgery. I initially trialed him with a +0 head which was unstable so I transitioned to a +3.5 head. That resolved the instability and both leg length and offset were appropriate on an ortho grid overlay. Those implants were therefore placed. Procedure in Detail: This patient was seen preoperatively and evaluated for hip pain which was refractory to numerous nonoperative treatment modalities. Their hip pain correlated with radiographic changes demonstrating significant degeneration in the hip joint. The risks and benefits of continued nonoperative management versus operative management were discussed at length and all of the patient?s questions were answered. Additional educational materials providing further details beyond our discussion in clinic were provided via a publicly available patient education video which included the incidence of medical complications associated with total hip arthroplasty, reasons for revision following total hip arthroplasty, and patient satisfaction rates following total hip arthroplasty. With this understanding of the risks inherent to the procedure, the patient elected to move forward with operative management. Following preoperative optimization, the patient was scheduled for surgery. The patient was met in the preoperative holding area the day of the procedure and all questions were answered. The patient?s nares were swabbed in order to decolonize them from MRSA. Informed consent was signed and the right limb was marked with indelible ink.? The patient was brought back to the operating room where anesthesia was induced. The patient was transferred to the [place] table and all bony prominences were padded. The operative site was prepped and draped in the usual sterile fashion. Prior to incision, tranexamic acid and cefazolin were administered. Operative templating images were displayed demonstrating the anticipated implant sizes and correct operative extremity. A timeout procedure was performed verifying the patient?s identity, medical comorbidities, allergies, relevant medications, anesthesia type and the surgical plan. All present were in agreement. The assistance of a physician culinary assistant was required for positioning, room setup, soft tissue retraction and wound closure. Without this assistance, the procedure would have been significantly more challenging and time consuming.?? A direct anterior approach to the hip was utilized. This was performed with a longitudinal incision through a Heuter interval. The incision was planned 2 cm distal and 2 cm lateral to the ASIS extending towards the lateral patella, in line with the muscle body of the TFL. Following incision, the subcutaneous tissue was dissected while taking care to avoid injury to the lateral femoral cutaneous nerve. The fascia overlying the TFL was identified by dissecting off the overlying fat and identifying perforating vessels to the TFL. The TFL fascia was incised and dissected away from the medial border of the TFL. A retractor was placed over the superior femoral neck between the abductors and the hip capsule and used to reflect the TFL laterally. A [place] self-retainer was then placed in the distal aspect of the wound between the TFL and the rectus femoris. This was tensioned to open up the direct anterior interval and the lateral circumflex vessels were identified and coagulated using electrocautery. The floor of the TFL fascia was incised, exposing the pericapsular fat overlying the hip capsule. A second cobra retractor was placed on the inferior femoral neck. A retractor was placed on the anterior wall of the acetabulum and used to tension the reflected head of rectus femoris, which was then released in order to limit soft tissue tension. A capsulotomy was made in the midline of the anterior hip capsule in line with the femoral neck ending at the vastus tubercle. The anterior retractor was removed as soon as the capsulotomy was completed in order to limit the amount of time that a soft tissue retractor remained on the anterior wall and limit tension on the femoral nerve. Tag stitches were placed in the superior and inferior leaflets of the hip capsule. An Ricci soft tissue retractor was introduced over the tag stitches and tensioned in the interval between the rectus femoris and the TFL in order to retract and protect those muscles. The cobra retractors were replaced intracapsularly, with one over the superior neck in the pocket created by the base of the greater trochanter and the other on the femoral head. The capsulotomy was extended laterally to the base of the greater trochanter and medially to the lesser trochanter. This required externally rotating the hip. Once the lesser trochanter had been identified, a neck cut was planned according to measurements from preoperative templating. A ruler was cut at the length measured between the superior aspect of the lesser trochanter and the collar of the prosthesis. This line was extended towards the inferior aspect of the lateral cobra retractor to plan a cut which would leave minimal residual femoral neck laterally. The neck was cut at 60 degrees of external rotation along that line. A second cut was performed to remove a large napkin ring and facilitate head extraction. The napkin ring cut and femoral head were removed.?? A broad anterior wall retractor was placed between the labrum and the anterior capsule so that the anterior capsule would prevent capturing and pinching the femoral nerve anteriorly. An additional retractor was placed on the posterior wall. External rotation and traction were applied through the [place] table so that the cut surface of the femoral neck would not restrict access to the acetabulum. The labrum was excised sharply and the pulvinar was excised with electrocautery to limit bleeding from branches of the obturator artery. Acetabular reamers were selected based on preoperative templating and measurements of the excised femoral head. These were introduced into the acetabulum. Fluoroscopy was utilized to replicate a standing AP pelvis radiograph by centering over the pelvis, rotating until there was appropriate symmetry between the obturator foramen, and introducing caudal tilt to match the position of the pubic symphysis relative to the sacrococcygeal junction according to the patient?s anatomy. Once satisfied with the reaming depth corresponding to the preoperative template and the pinch fit between the columns, an appropriate sized acetabular cup was selected which would provide 1 mm of press-fit. This cup was introduced and manipulated until appropriate abduction and anteversion angles were obtained with careful attention to appropriate abduction and anteversion angles as evaluated by the position of the cup relative to the anterior and posterior zaragoza of the acetabulum and the AP fluoroscopy which recreated the patient?s standing radiograph. The cup was impacted into place. Peripheral osteophytes were removed. The acetabular liner was then placed with care to ensure locking of the locking mechanism. Attention was then turned to the femur. All retractors were removed, traction was released, a retractor was placed in the interval between the hip capsule and the gluteus minimus. The lateral capsule was released using electrocautery. Traction was released and a [place] hook was placed posteriorly around the proximal femur at the level of the vastus ridge. The table height was lowered in order to restrict the tension on the anterior structures during hip hyperextension to limit the risk of femoral nerve palsy. With traction off and the hip at 90 degrees of external rotation, the hip was hyperextended and adducted while manually elevating the femur away from the acetabulum with the [place] hook to avoid hooking the greater trochanter on the pelvis. An asymmetric retractor was placed over the calcar and a broad double-pronged retractor was placed over the greater trochanter. The tag stitch capturing the lateral leaflet of the capsule was moved to the medial side, leaving the conjoined and piriformis tendons isolated in the face of the greater trochanter. The hip was externally rotated and elevated. A release of the conjoined tendon was necessary in order to obtain adequate exposure for broaching. The canal was opened with an opening broach and a rasp was used to remove cancellous bone. A rongeur was used to remove the residual lateral bone at the base of the greater trochanter to avoid placing the stem in varus. The femur was then broached to the appropriate sized stem yielding good rotational fit and fill of the canal as well as appropriate version of the stem trial. Neck and head trials were placed, all retractors were removed and the hip was returned to neutral abduction and extension. I then reduced the hip and manually trialed it before changing surgical gloves. Initial trialing was performed with a size 7 broach, a high offset neck and a +0 head. I initially manually externally rotated the hip and found that it immediately dislocated. I then locked the hip in 45 degrees of external rotation and dropped it to the floor with traction off which demonstrated no instability. An ortho grid overlay image was obtained comparing the nonoperative site of the operative site which demonstrated nearly identical leg length and offset. AP and lateral hip fluoroscopic images were obtained to evaluate the broach size which demonstrated good canal fill. The hip was dislocated and I returned to the broaching position. Based on my evaluation during initial trialing I planned to place these definitive implants. The definitive stem was placed and the trunnion was cleaned and dried. I placed a ceramic head onto the trunnion and impacted it into place on the [place] taper.?? All retractors were removed and the hip was reduced. A dilute mixture of betadine and peroxide was used to bathe the soft tissues during final fluoroscopic assessment. Appropriate component positioning was confirmed on an AP pelvis radiograph with the operative and nonoperative legs in 40 degrees of external rotation, evaluating leg length and offset. Appropriate stem fill was evaluated on AP and lateral hip radiographs. No previously unrecognized fractures were identified on these radiographs. There was no hip instability with maximum (105?) external rotation as well as a 45 degree drop test. The hip was copiously irrigated with pulse lavage. The capsule was closed with absorbable interrupted suture. The TFL fascia was closed with barbed suture while carefully protecting the lateral femoral cutaneous nerve from entrapment. A mixture of Ropivacaine, Epinephrine and Toradol was infiltrated throughout the soft tissues. The skin was closed with 2-0 and 3-0 sutures. Surgical glue was applied and a soft dressing was placed.??The sponge, instrument and needle counts were reported as being correct at the end of the case.??No obvious complications occurred. The patient was transferred from the [place] table back to a stretcher. The patient emerged from anesthesia without difficulty and was taken to the PACU in a stable condition.? Plan for aftercare: No hip precautions Weightbearing as tolerated Aspirin 81 twice per day for DVT prophylaxis Anticipate discharge home tomorrow Multimodal pain regimen with no IV opioids ordered Follow up at [facility] in 2 weeks Complications: none Post-operative Condition: stable Disposition: Acute Care
[2024-12-22] MEDS: ACETAMINOPHEN 325 MG TABLET 650 MG PO ×2 (16:48→22:39)
[2024-12-22] MEDS: LACTATED RINGERS 1,000 ML 100 ML IV (16:49)
--- NOTE | 2024-12-22 18:33 | PM.PN.IH.1 ---
Subjective Subjective Interval history: I came by to check on Giuseppe postoperatively montiel he is resting comfortably in bed. He has no significant discomfort currently. He actually was being visited by a family member who is also currently admitted to the hospital. His spinal is just starting to wear off at this point in time and he has intact plantar flexion and dorsiflexion of his hallux and ankle. We will plan for him to mobilize tomorrow morning and discharge home tomorrow morning. Exam Vital Signs (past 8 hours): - 12/22/24 10:47 12/22/24 15:21 12/22/24 15:35 Temperature 98.6 F 97.1 F L 97.1 F L Pulse Rate 57 L 64 60 Respiratory Rate 16 12 21 Blood Pressure 170/77 H 143/64 H 138/62 Pulse Oximetry 98 94 96 Oxygen Delivery Method Room Air Room Air Room Air 12/22/24 15:40 12/22/24 15:45 12/22/24 16:15 Temperature 97.1 F L 96.5 F L 96 F L Pulse Rate 59 L 58 L 59 L Respiratory Rate 20 16 16 Blood Pressure 135/65 118/71 129/63 Pulse Oximetry 97 97 96 Oxygen Delivery Method Room Air 12/22/24 16:45 Temperature 96.5 F L Pulse Rate 59 L Respiratory Rate 16 Blood Pressure 124/59 L Pulse Oximetry 99 Oxygen Delivery Method Oxygen Delivery Method Room Air Objective Labs Labs: Laboratory Results - last 24 hr 12/22/24 11:02 POC Whole Bld Glucose 145 H PENDING SALE TO [facility] Medical History (Updated 12/12/24 @ 08:44 by Rachel Baugh RN) Atrial fibrillation Encounter for pre-operative cardiovascular clearance Primary osteoarthritis of right hip Presence of Watchman left atrial appendage closure device Medicare annual wellness visit, subsequent Well adult exam Leg edema Hyperlipemia Hypertension Plantar fasciitis (~08/2013) Chronic back pain (1990) Foot pain (2013) Diabetes (1997) Surgical History History of cardiac radiofrequency ablation History of back surgery Hx of knee surgery (1967) Family History Grandfather Heart disease Grandmother Hypertension Stroke High cholesterol Diabetes mellitus Grandfather Cancer Grandmother Diabetes mellitus Mother No problems noted. Brother Atrial fibrillation Atrial fibrillation, chronic Pacemaker Social History household members: spouse and none Smoking Status: Former smoker alcohol intake: current Assessment & Plan Time-Based Coding :: [TOTAL MINUTES] spent with patient and on the chart (including review of chart, obtaining history, exam, reviewing outside data, placing orders, documenting exam and treatment plan, and counseling patient) on [DATE]. [facility] Director Document charge(s): No
[2024-12-22] MEDS: ASPIRIN EC 81 MG TABLET PO (20:13)
[2024-12-22] MEDS: ATORVASTATIN 20 MG TABLET 10 MG PO (20:13)
[2024-12-22] MEDS: FLECAINIDE 100 MG TABLET 50 MG PO (20:14)
[2024-12-22] MEDS: INSULIN LISPRO 100 UNIT/ML 3ML VIAL SUBCUT (21:32)
[2024-12-23 00:05] VITALS: BP 148/66; PULSE 70; RESP 16; TEMP 35.5; O2SAT 96
--- NOTE | 2024-12-23 07:07 | P.DS_ITS ---
History of Present Illness
--- NOTE | 2024-12-23 07:07 | PM.DS.IH.1 ---
History of Present Illness History of Present Illness Chief complaint: R SWATI Narrative: 74 year old male with a past medical history of atrial fibrillation, hypertension and diabetes mellitus presented to [facility] on 12/22/24 for planned right total hip arthroplasty by Dr. Mo. ?This elective procedure was indicated by chronic right hip arthritis causing weakness and difficulty navigating stairs. The pain also limited his ability to be active and exercise with walking and swimming leading to a decreased level of activity. ?On the date of surgery there were no changes of the medical history, medications or allergies. ?Consent had been obtained and the patient was in agreement to proceed with planned surgery. This morning the patient reports he is doing very well with mild pain after surgery. Pain has been controlled with oral medications including Tylenol and oxycodone. The patient has not worked with physical therapy. The patient denies chest pain, dyspnea, nausea, emesis, fever and chills. Patient has some numbness about the anterior right hip. He is making urine spontaneously. The patient has all of their post operative medications at home and feels ready to discharge home today. Discharge Providers Provider Discharge Date: 12/23/24 Primary care physician: Domo Ku DO Consults: 12/22/24 11:44 Consult to Anesthesiology Routine Comment: Consulting Provider: Anesthesiologist Reason for consultation: Regional block for post-operative pain control 12/22/24 15:56 Consult to Occupational Therapy Evaluate & Treat Comment: WBAT Physician Instructions: Evaluate and treat Consult to Physical Therapy Evaluate & Treat Comment: WBAT Physician Instructions: Evaluate and Treat Discharge provider: REMEDIOS Palmer Dr Summary Hospital Course Hospital Course: On 12/22/24 the patient was brought to the operating room for planned right total hip arthroplasty by Dr Mo.? There were no known intraoperative complications.? The patient was transferred to the postoperative recovery area and monitored appropriately.? Later the patient was transferred to the acute care unit [facility] for monitoring overnight and physical therapy.? There were no acute events overnight.? His blood glucose was 236 and so he received 1 unit of sliding scale insulin overnight. On postoperative day 1, the patient's vital signs were stable and he was making urine spontaneously.? The patient denied chest pain, dyspnea, fever, chills, nausea and emesis on postoperative day 1.? The patient was awaiting physical therapy evaluation during orthopedic rounds.? Pain was well-controlled on oral analgesics and the patient was in agreement with preoperative plan to discharge home on postoperative day 1. Exam Vital Signs (past 8 hours): - 12/23/24 00:05 Temperature 96 F L Pulse Rate 70 Respiratory Rate 16 Blood Pressure 148/66 H Pulse Oximetry 96 Oxygen Delivery Method Room Air Narrative Exam Narrative: well developed, well nourished, 74 year old male, no acute distress aquacell dressing is dry and intact to right hip without hematoma or drainage knee extension, ankle dorsiflexion, ankle plantarflexion and extensor hallicus longus function are intact Sensation intact to right foot grossly, palpable dorsalis pedis pulse right calf soft and non tender Objective Labs Labs: Laboratory Results - last 24 hr 12/22/24 12/22/24 11:02 20:35 POC Whole Bld Glucose 145 H 236 H PFSH Medical History (Updated 12/12/24 @ 08:44 by Rachel Baugh RN) Atrial fibrillation Encounter for pre-operative cardiovascular clearance Primary osteoarthritis of right hip Presence of Watchman left atrial appendage closure device Medicare annual wellness visit, subsequent Well adult exam Leg edema Hyperlipemia Hypertension Plantar fasciitis (~08/2013) Chronic back pain (1990) Foot pain (2013) Diabetes (1997) Surgical History History of cardiac radiofrequency ablation History of back surgery Hx of knee surgery (1967) Family History Grandfather Heart disease Grandmother Hypertension Stroke High cholesterol Diabetes mellitus Grandfather Cancer Grandmother Diabetes mellitus Mother No problems noted. Brother Atrial fibrillation Atrial fibrillation, chronic Pacemaker Social History household members: spouse and none Smoking Status: Former smoker alcohol intake: current Discharge Assessment & Plan Assessment and Plan Plan of Treatment: 74 year old male with a past medical history of atrial fibrillation, hypertension and diabetes mellitus presented to [facility] on 12/22/24 for planned right total hip arthroplasty by Dr. Mo. The patient is recovering well with appropriate pain control on oral analgesics and stable vital signs. The patient is comfortable with planned discharge home today on post operative day one after physical therapy. Plan:? Weightbearing as tolerated to right lower extremity with front wheeled walker? No hip precautions? DVT prophylaxis with 81 mg of aspirin twice daily for 6 weeks ? Continue multimodal analgesia with Tylenol, meloxicam and oxycodone? Bowel regimen as needed? Physical therapy evaluation and treatment today? Follow up with orthopedics 2 weeks post operatively? All post operative medications ordered at pre operative visit? Ice to surgical site as needed? All patient questions were answered and they verbalized agreement with the above plan. Call [facility] with any questions or concerns. Discharge Plan Discharge Plan Patient Disposition: Home Provider Discharge Comment: SURGICAL PROCEDURE: Right Anterior Total Hip Arthroplasty SURGEON: Dr. Mo at [facility] DATE: 12/22/24 ACTIVITY INSTRUCTIONS You are weight bearing as tolerated to the right lower extremity with a front wheeled walker at all times. We encourage active movement of the toes and ankle every hour while awake to prevent stiffness. You have no hip precautions Limit your steps to no more than 1000 steps per day for the first week after surgery to limit swelling. Do not drive while taking narcotic medications and recovering from your surgery. DRESSING CARE You have a Aquacell dressing on top of your incision. This is a waterproof dressing and so you may shower with the dressing so long as the dressing remains clean and dry to the surgical site. Leave the dressing in place until your follow up in the orthopedic clinic. If the dressing becomes saturated or is disrupted call our office for further guidance. POST-OPERATIVE INSTRUCTIONS If you notice fever, chills, night sweats, redness, excessive drainage or bleeding, a sharp increase in pain that persists after taking pain medication, pain in your calf muscles, chest pain or trouble breathing please unwrap the dressing and investigate. Then call the office with findings for further guidance. If it is after regular clinic hours, please seek care in the emergency department. In the rare case of any severe chest pain and trouble breathing, seek immediate care, do not delay for a call to the clinic. Use ice to the affected extremity for 15-30 minutes increments as much as possible. Use your ice machine as discussed in your pre-operative visit. Keep extremity elevated to the level of the heart to reduce swelling. You can use ice on top of the dressing to reduce pain and swelling of the extremity. You should consume a low sodium diet after surgery to limit swelling. You can gradually resume your normal diet if you have no nausea or vomiting Physical therapy should begin about 7-10 days after surgery. Your first evaluation should already be scheduled. Call our office if you cannot schedule your therapy in the expected time frame. Your follow up is already scheduled for 2 weeks after your surgery at the Orthopedic clinic. You should have no dental procedures for 6 months following your total joint replacement. Please refer to Dr. Mo?s educational videos on YouTube for a reference on your post operative care. Call Orthopedics at [phone] with any questions or concerns. MEDICATIONS Please refer to the ?Orthopedic Medication Instructions? sheet provided at your pre-operative visit. Written instructions are provided below as a reminder. Take two pills of 500 mg Tylenol (acetaminophen) every 8 hours regardless of pain in a scheduled manner. Do not exceed 3000 mg of Tylenol (from ALL sources, including over the counter combination products) in a 24-hour period due to risk of liver injury. Take one pill of oral meloxicam daily. This is NSAID (anti-inflammatory) medication to reduce swelling and pain. Take one pill of 5 mg oxycodone by mouth every 4-6 hours as needed for break through pain after taking your regular Tylenol and anti-inflammatory. Oxycodone is an opioid, which means they are similar to morphine, heroin or fentanyl. Our goal is for you to take as little of this as possible because the side effects from it can be very severe. If you are able to get through your recovery process taking 10 pills or less please share your story with other patients by logging onto [email or web address] and sharing what strategies you used to avoid these dangerous medications. You can also read other patients? stories on that website to get strategies that go above and beyond what we have discussed to help you manage this pain while avoiding opioids. Take 200 mg of Colace by mouth every 12 hours for constipation. Narcotic medications such as oxycodone and tramadol as well as anesthesia may increase your risk of constipation after surgery. Take 4 mg of Zofran by mouth every 6 hours as needed for uncontrolled nausea or vomiting. If you have persistent nausea and vomiting call our office or seek care in the emergency department. Take one pill of 81 mg of aspirin two times daily 12 hours apart for 6 weeks for blood clot prevention. Take this medication regardless of pain. Take Pantoprazole (a proton pump inhibitor while taking the meloxicam as the combination of these medications can cause stomach irritation. If you stopped taking a ?biologic? medication that you normally take for an issue such as rheumatoid arthritis or psoriasis prior to surgery, do not restart it until we have seen you back in clinic and confirmed that your wound is healed. Resume all of your normal home medications tomorrow morning unless specified otherwise by your surgeon. Discharge orders & Medications Discharge Orders: Discharge (Order); Ordered 12/23/24 Ordered By: Ruth Yancey Prescriptions: Continued cholecalciferol (vitamin D3) 1,000 unit capsule 1,000 unit PO DAILY roxqlnzm-ejn-KU-lycopen-lutein [Centrum Silver] 0.4-300-250 mg-mcg-mcg tablet 1 tab PO DAILY hydrochlorothiazide 25 mg tablet 25 mg PO QDAY Qty: 90 3RF metformin 850 mg tablet 850 mg PO BID Qty: 180 3RF tadalafil 2.5 mg tablet 2.5 mg PO DAILY Qty: 30 0RF simvastatin 10 mg tablet 10 mg PO ONCE PM Qty: 90 3RF diltiazem HCl [Cartia XT] 120 mg capsule,extended release 24hr 120 mg PO DAILY flecainide 100 mg tablet 50 mg PO BID aspirin 81 mg tablet,delayed release (DR/EC) 81 mg PO DAILY lisinopril 20 mg tablet 20 mg PO BID zolpidem 5 mg tablet 5 mg PO HS PRN (Reason: insomnia) Qty: 14 0RF Rybelsus 3 mg tablet 3 mg PO QAM Qty: 90 3RF ezetimibe [Zetia] 10 mg tablet 10 mg PO DAILY meloxicam 15 mg tablet 15 mg PO DAILY Qty: 90 0RF docusate sodium [Colace] 100 mg capsule 100 mg PO BID PRN (Reason: constipation) Qty: 60 0RF ondansetron 4 mg tablet,disintegrating 4 mg PO Q8H PRN (Reason: nausea and vomiting) Qty: 7 0RF oxycodone 5 mg tablet 5 mg PO Q6H PRN (Reason: pain) Qty: 30 0RF No Action (DME) lancets 33 gauge misc See Dose Instructions .ROUTE .MEDSUPPLY Qty: 250 3RF Dose Instruction: As directed Rx Instructions: Test blood sugar twice a day. (DME) Contour Test Strips Strip See Dose Instructions .ROUTE .MEDSUPPLY Qty: 200 3RF Dose Instruction: As directed Rx Instructions: Test blood sugar twice a day Follow up/Referrals: Domo Ku DO [Primary Care Provider, Family Practice] Hipolito Mo MD [Physician, Orthopedic Surgery] Diet/Activity/Treatments Diet: Diet as Tolerated Visit Report/Discharge Packet Instructions: DI for Hip Replacement, DI for Prescription Opioid Use Stand Alone Forms: Patient Portal/API Print Language: Portuguese Discharge Data Primary Care Provider: Domo Ku Attending Provider: Hipolito Mo PROFEE Charge Codes Discharge inpatient/observation: [id number]
[2024-12-23] MEDS: EZETIMIBE 10 MG TABLET PO (08:39)
[2024-12-23] MEDS: FLECAINIDE 100 MG TABLET 50 MG PO (08:39)
[2024-12-23] MEDS: ASPIRIN EC 81 MG TABLET PO (08:39)
[2024-12-23 08:40] VITALS: BP 162/70; PULSE 65; RESP 15; O2SAT 97
[2024-12-23] MEDS: ACETAMINOPHEN 325 MG TABLET 650 MG PO (08:50)
--- NOTE | 2024-12-23 10:37 | OT.IP.EVAL ---
Current Diagnoses Unilateral primary osteoarthritis, right hip (12/22/24) Surgery Performed Operation Date: 12/22/24 13:00 Actual Procedures p Total Hip Arthroplasty/Anterior Approach(Right) - Hipolito Mo MD Past Medical History (Last Updated 12/12/24 @ 08:44 by Rachel Baugh, RUSS) Atrial fibrillation Chronic back pain (1990) Diabetes (1997) Encounter for pre-operative cardiovascular clearance Foot pain (2013) Hyperlipemia Hypertension Leg edema Medicare annual wellness visit, subsequent Plantar fasciitis (~08/2013) Presence of Watchman left atrial appendage closure device Primary osteoarthritis of right hip Well adult exam Surgical History (Last Reviewed 11/17/24 @ 10:54 by Domo Ku DO) History of back surgery History of cardiac radiofrequency ablation Hx of knee surgery (1967) Occupational Therapy Inpatient Evaluation/Re-Eval M1 OT IP Prior Functional Status Start: 12/23/24 10:38 Freq: Status: Active Protocol: Document 12/23/24 10:39 [facility] (Rec: 12/23/24 10:49 [facility] Desktop) Medical Review Prior Functional Status Communication I Mobility and Gait I Activities of Daily I Living and IADL's Social History Household Members spouse,none Living Arrangements House Number of Floors ( One Floor Floors) Number of Stairs To 2 steps with left rail to enter. Enter/Railing? Home Environment High Toilet,Walk in Shower Home Equipment Front Wheel Walker,Straight Cane,Shower Seat with Backrest,Long Handled Shoe Horn,Camera Person,Grab Bars Near Toilet Additional Social Pt has a supportive to assist him. Pt has an History Comment adjustable bed at home. M2 OT-IP Current Condition Start: 12/23/24 10:38 Freq: Status: Active Protocol: Document 12/23/24 10:39 [facility] (Rec: 12/23/24 10:49 [facility] Desktop) Occupational Therapy Current Condition Current Condition Evaluation Date 12/23/24 Treatment Diagnosis S/P R SWATI Diagnosis Onset Date 12/22/24 Post Operative Precautions Other Precautions NO hip precautions. Weight Bearing Status Weight Bearing Weight Bear as Tolerated Status M3 OT- IP Subjective and Pain Start: 12/23/24 10:38 Freq: Status: Active Protocol: Document 12/23/24 10:39 [facility] (Rec: 12/23/24 10:49 [facility] Desktop) OT- Subjective Occupational Therapy Visit Type Type Initial Evaluation Visit Start Time 10:10 Visit Stop Time 10:37 Occupational Therapy Visit Comments Patient Comments Pt agreed to get up and get dressed. Patient/Caregiver TO go home. Goals OT Pain Assessment Pain When Pain Assessed At Rest Pain Present Pain Present Denied Pain M4 OT- IP ADL's Start: 12/23/24 10:38 Freq: Status: Active Protocol: Document 12/23/24 10:39 [facility] (Rec: 12/23/24 10:49 [facility] Desktop) OT AMI-Odyc-Cvmhxrj General Evaluation Self-Feeding Ability Independent OT ADL-Grooming General Evaluation Grooming Ability Independent OT ADL-Oral Care General Eval Oral Care Ability Independent OT ADL-Dressing General Eval Upper Body Dressing Independent Ability Lower Body Dressing Minimal Assistance Ability Areas Needing Shoes Assistance Comments OT Dressing Comments Pt just needing assist to get his heel into his shoes. OT ADL-Toileting Comments OT Toileting Pt states has already used the toilet and sits to go. Comments Suggested use of wipes. OT ADL-Bathing Comments OT Bathing Comments Pt states has a shower chair and that his is able to assist. M5 OT- IP IADL's Start: 12/23/24 10:38 Freq: Status: Active Protocol: Document 12/23/24 10:39 [facility] (Rec: 12/23/24 10:49 [facility] Desktop) OT-Instrumental Activities of Daily Living Home Safety Awareness Awareness of Need Good Awareness for Assistance at Home Ability to Problem Able to Problem Solve Solve Emergency Situations Medication Management Medication No Deficits Identified Management Money Management Money Management No Deficits Identified Meal Preparation Meal Preparation Pt's to help. Comments Territory Manager General Sales Territory Manager General Sales Pt's to assist. Comments M6 OT- IP Functional Cognition Start: 12/23/24 10:38 Freq: Status: Active Protocol: Document 12/23/24 10:39 [facility] (Rec: 12/23/24 10:49 [facility] Desktop) Cognitive Factors Limiting Selfcare Function Cognitive Ability Level of Alertness Alert Patient Orientation Name,Age,Birthday,Month,Date,Year,Day of Week,Place, Situation Attention Span Capable of Focused Attention,Capable of Sustained Ability Attention Ability to Follow Able to Follow Multi-Step Commands Commands Cognitive Comments Cognitive Assessment Intact, pt just needing initial VC to push up from Comments surfaces while coming to stand. OT- Vision and Hearing OT- Hearing Assessment OT- Hearing WFL Assessment OT- Vision Assessment Visual Acuity Glasses For Reading Visual Attentiveness WFL Occular Pursuits WFL M7 OT- IP Mobility and Balance Start: 12/23/24 10:38 Freq: Status: Active Protocol: Document 12/23/24 10:39 [facility] (Rec: 12/23/24 10:49 [facility] Desktop) OT- Bed Mobility Assessment Supine to Sit Supine to Sit Assist Standby Assistance OT-Transfer Assessment Sit to and From Stand Sit to and from Contact Guard Assistance Stand Transfers Transfer Ability Standby Assistance,Contact Guard Assistance Technique Transfer Destination Bed,Chair Transfer Technique Stand Step Pivot Devices Transfer Assistive Gait Belt,Front Wheeled Walker Devices Comments Mobility Comments SBA to get to the left side of the bed with HOB up. Pt CGA to stand and able to transfer to the recliner with SBA. SBA while walking in the room with FWW. OT- Balance Assessment Sitting Balance and Reactions Static Sitting Normal Balance Ability Dynamic Sitting Good Balance Ability Standing Balance and Reactions Static Standing Good Balance Ability Dynamic Standing Good Balance Ability M8 OT- IP Objective Assessments Start: 12/23/24 10:38 Freq: Status: Active Protocol: Document 12/23/24 10:39 [facility] (Rec: 12/23/24 10:49 [facility] Desktop) OT Gross Range of Motion Upper Extremity Range of Motion Assessment Within Functional Limits OT Strength Upper Extremity Strength Assessment Within Functional Limits M9 OT- IP Assessment and Plan Start: 12/23/24 10:38 Freq: Status: Active Protocol: Document 12/23/24 10:39 [facility] (Rec: 12/23/24 10:49 [facility] Desktop) OT Summary Assessment and Plan Potential Rehabilitation Excellent Potential Analytic Complexity Low at Evaluation Summary OT Impairments Balance,Functional Mobility,Dressing,Toileting,Bathing, Shower Transfers Progress Towards Progressing Toward Goals Goals Assessment Summary Pt low complexity and main barriers are steps and looking to go home with to assist and attend outpt PT. Goals Dressing Goal Independent,Long Handled Shoe Horn,Camera Person Toileting Goal Independent Bathing Goal Independent Days to Meet Goals 3 Treatment Plan OT Treatment Plan ADL Training,Functional Mobility,Patient/Family Education,Discharge Planning Discharge Recommendations OT Discharge Home with Assistance,Outpatient PT Recommendations Transportation Needs Private Vehicle at Discharge
--- NOTE | 2024-12-23 10:50 | PT.IIE ---
Current Diagnoses Unilateral primary osteoarthritis, right hip (12/22/24) Surgery Performed Operation Date: 12/22/24 13:00 Actual Procedures p Total Hip Arthroplasty/Anterior Approach(Right) - Hipolito Mo MD Surgical History (Last Reviewed 11/17/24 @ 10:54 by Domo Ku DO) History of back surgery History of cardiac radiofrequency ablation Hx of knee surgery (1967) Medical History (Last Updated 12/12/24 @ 08:44 by Rachel Baugh, RUSS) Atrial fibrillation Chronic back pain (1990) Diabetes (1997) Encounter for pre-operative cardiovascular clearance Foot pain (2013) Hyperlipemia Hypertension Leg edema Medicare annual wellness visit, subsequent Plantar fasciitis (~08/2013) Presence of Watchman left atrial appendage closure device Primary osteoarthritis of right hip Well adult exam Physical Therapy Inpatient Evaluation/Re-Eval M1 PT IP Prior Functional Status Start: 12/23/24 12:42 Freq: NEEDED Status: Active Protocol: Document 12/23/24 10:50 AB (Rec: 12/23/24 12:54 AB [id number]) Medical Review Prior Functional Status Medical History Yes Reviewed Communication able to make needs known Mobility and Gait pt stated that he was modified independent with all mobilities and ambulation without AD but has been using a SPC for the last 2 days prior to sx due to pain Activities of Daily I Living and IADL's Social History Household Members spouse Living Arrangements House Number of Floors ( One Floor Floors) Number of Stairs To 2 steps with left rail ascending to enter. Enter/Railing? Home Environment High Toilet,Walk in Shower Home Equipment Front Wheel Walker,Straight Cane,Hand Held Shower,Long Handled Shoe Horn,Professor Of Communication And Writing,Grab Bars Near Toilet Additional Social Pt has an adjustable bed. History Comment M2 PT-IP Current Condition Start: 12/23/24 12:42 Freq: NEEDED Status: Active Protocol: Document 12/23/24 10:50 AB (Rec: 12/23/24 12:54 AB [id number]) Physical Therapy Current Condition Current Condition Evaluation Date 12/23/24 Treatment Diagnosis s/p R SWATI; difficulty in walking Onset Date 12/22/24 M3 PT-IP Subjective Start: 12/23/24 12:42 Freq: NEEDED Status: Active Protocol: Document 12/23/24 10:50 AB (Rec: 12/23/24 12:54 AB [id number]) Subjective Physical Therapy Visit Type Type Initial Evaluation Visit Start Time 10:50 Visit Stop Time 11:30 Number of FIRE DEPARTMENT BATTALION CHIEF Visits 0 Physical Therapy Visit Comments Patient Comments agreeable to do PT Therapy Pain Assessment Pain When Pain Assessed At Rest Pain Present Pain Present Pain Reported Location Right Hip Intensity 4 Scale Used Numeric (0 - 10) Pain Management Distraction,Modification of Treatment,Re-positioning, Techniques Timing of Activity with Medications M4 PT-IP Mobility and Gait Start: 12/23/24 12:42 Freq: NEEDED Status: Active Protocol: Document 12/23/24 10:50 AB (Rec: 12/23/24 12:54 [id number]) PT-Bed Mobility Assessment Supine to Sit Supine to Sit Standby Assistance Sit to Supine Sit to Supine Standby Assistance PT-Transfer Assessment Sit to and From Stand Sit to and from Standby Assistance,Contact Guard Assistance,1 Person Stand Assistance,Use of Upper Extremities Equipment Transfer Assistive Gait Belt,Front Wheeled Walker Device Orthotic/Prosthetic No Devices or Brace: Transfers Transfer Destination Bed,Chair Transfer Technique ambulated Transfer Ability Level of Assist Standby Assistance,Contact Guard Assistance,1 Person Assistance,Use of Upper Extremities Comments Mobility Comments pt sitting on the chair and agreeable to do PT. obtained PLOF and home set up. post-op folder provided to pt and reviewed contents. BP: 157/75. completed sit to stand from the chair CGA and ambulated in room ~ 20 ft CGA. pt sat on EOB and completed sit<>supine SBA . agreed to do stairs. sit to stand from EOB SBA to CGA and ambulate din the hallway towards the stairs using fWW initial CGA but after a few feet SBA. stair climbing training: educated pt on how to do stairs. pt completed up/down steps holding on to L rail with B hands SBA to cGA. pt ambulated back to his room using FWW SBA. sat back on chair. positioned pt on the chair. call light and table placed within reach. pt without further concerns. Gait Assessment Gait Gait Assistance Standby Assistance,Contact Guard Assist Required: Distance (Feet) 125 Able to Maintain Yes Weight Bearing Status During Gait Assistive Devices Assistive Device Gait Belt,Front Wheeled Walker Orthotic/Prosthetic No Devices or Brace: Gait Deviations General Gait Pattern Antalgic,Decreased Stride Length,Decreased Feet Clearance Factors Limiting Gait Function Factors Limiting Decreased Activity Tolerance,Decreased Sensation, Gait Function Decreased Strength,Difficulty Following Directions, Limited Range of Motion,Pain,Poor Balance Stair Climbing Assessment Evaluation Level of Assist On Standby Assistance,Contact Guard Assistance,1 Person Stairs Assistance Devices Stair Climbing Left Railing Assistive Devices Technique/Endurance Stair Climbing Ascend and Descend Direction Stair Climbing Step to Step Technique Number of Steps 3 Climbed Query Text: Stair Climbing Set # 1 Repetitions (reps) PT-Balance Assessment Sitting Balance and Reactions Static Sitting Good Balance Ability Dynamic Sitting Good Balance Ability Standing Balance and Reactions Static Standing Good Balance Ability Dynamic Standing Fair Balance Ability Device Used FWW M5 PT-IP Objective Assessments Start: 12/23/24 12:42 Freq: NEEDED Status: Active Protocol: Document 12/23/24 10:50 AB (Rec: 12/23/24 12:54 AB [id number]) Orientation Orientation/Cognition Level of Alertness Alert Orientation Name,Age,Place,Situation Language Function No Deficits Noted Ability Safety Awareness Decreased Safety Awareness Memory Description No Deficits Noted Gross Range of Motion Lower Extremity ROM Assessment Within Functional Limits Strength Lower Extremity Strength Assessment Right Impaired Hip 3-/5 Knee 4-/5 Coordination Assessment Gross Coordination Gross Coordination WNL Sensation Assessment Sensation Gross Sensation Right LE Impaired,Left LE Impaired Sensation Numbness,Tingling Description Comments Sensation Comments B feet with neuropathies Muscle Tone Muscle Tone WNL Yes M6 PT-IP Treatment Start: 12/23/24 12:42 Freq: NEEDED Status: Active Protocol: Document 12/23/24 10:50 AB (Rec: 12/23/24 12:54 AB [id number]) Physical Therapy Treatment Education Education Provided Weight Bearing Status,Post-Op Packet,Safety M7 PT-IP Assessment and Plan Start: 12/23/24 12:42 Freq: NEEDED Status: Active Protocol: Document 12/23/24 10:50 AB (Rec: 12/23/24 12:54 AB [id number]) PT Summary Assessment and Plan Potential Rehabilitation Good Potential Status of Condition Stable at Evaluation Summary Impairments Pain,ROM,Strength,Balance,Coordination,Sensation,Bed Mobility,Transfers,Gait,Activity Tolerance Assessment Summary pt is a 74 y/o M s/p R SWATI anterior approach POD 1. pt is WBAT on RLE. pt requiring SBA to CGA with mobilities using fWW and plans to go home with spouse to assist him. pt has outpt PT set up. pt may go home when medically stable. Goals Bed Mobility Goal Independent Transfer Goal Independent,Front Wheeled Walker Gait Goal Independent,Front Wheel Walker Gait Distance 200 Other Goals up/down 2 steps L rail ascending mod I Days to Meet Goals 5 Frequency of Treatment Frequency Of Twice a Day Treatment Treatment Plan Physical Therapy Bed Mobility Training,Transfer Training,Gait Training, Treatment Plan Therapeutic Exercise,Balance Retraining,Post Op Education,Discharge Planning,Hot or Cold Pack, Neuromuscular Re-ed,Coordination Retraining,Manual Therapy Weight Bearing Status Weight Bearing Weight Bear as Tolerated Status Allowed Weight RLE WBAT Bearing Amount ( enter % or #) (%) Recommendations To Nursing Amount of Assist 1 Person Assist Needed Discharge Recommendations PT Discharge Home with Assistance,Outpatient PT Recommendations Transportation Needs Private Vehicle at Discharge - PT assist 1
--- NOTE | 2024-12-23 12:04 | PC.NURSE ---
Discharge Note Patient A&O, VSS, RA, no complaints of pain/discomfort. Discharge packet reviewed with patient, all questions/concerns addressed. PIV discontinued. Patient able to dress self and pack all belongings with minimal assistance. Patient taken down via wheelchair to POV accompanied by spouse.
--- NOTE | 2024-12-23 14:07 | CM.DANOTE ---
DCP Assessment note pt is a 74yo M POD1 right total knee. HVAC INSTALLATION TECHNICIAN reviewed EMR. per RN report, pt is doing well, mobilizing with PT. per chart review, pt has all appropriate DME for home. lives with spouse in [place], local brother Ry listed as another supportive contact. no DCP needs identified per chart review. pt left with spouse prior to being seen by this HVAC INSTALLATION TECHNICIAN P: dc home with OP f/u and spouse support. will continue to follow as needed in case any DCP needs should arise TAVARES Starr Discharge Planning/Care Management CM Discharge Assessment Start: 12/22/24 15:53 Freq: Status: Discharge Protocol: Document 12/23/24 14:06 SL (Rec: 12/23/24 14:07 SL [id number]) Discharge Planning Assessment Assigned Discharge Leon Neves Material Mover Provider Domo Ku Insurance Medicare Insurance Comment [employer] secondary DPOA/Assigned Winifred spouse Designee Name Contact Information [phone] Advance Directives? Yes Advance Directives No on File History Provided By Patient,Medical Record Prior Living House Arrangements Household Members spouse Independent with ADL Yes 's Is patient alert and Yes oriented? Discharge Plan Home Transportation Significant other can likely provide transport at d/c Arrangement Referrals Initiated None needed Review Status In Process Please Provide Date 12/23/24 Initial DC Assessment Was Performed Next Review Type Continued Stay Review Pre-Anesthesia Assessment Start: 12/12/24 08:38 Freq: Status: Complete Protocol: Document 12/12/24 08:38 LB (Rec: 12/12/24 09:29 LB [id number]) Pre-Anesthesia Assessment Information obtained Phone via Height 177.8 cm Weight 113.852 kg Body Mass Index (BMI 36.0 ) Has patient seen a Yes specialist in last 12 months? If yes, specialist Senior Architect/Design Manager,Orthopedist seen Patient hospitalized No or treated in the ER in the last year? Patient experienced None in the last year Patient experienced No syncope or dizziness in the last year? Does patient have Heart surgery history of Has patient ever had No a blood clot? Is patient on Yes anticoagulant therapy? If yes, Aspirin 81mg daily. anticoagulant name Patient advised to No hold this medication prior to surgery? Does patient have a Yes production welder? If yes, production welder Dr Briones. name Was cardiac testing Yes performed? If yes, type 08/07/23 - ANTONIO. Does patient have No history of a pacermaker/ICD? Cardiac Clearance Yes Received Can patient climb a Yes flight of stairs without shortness of breath? Can patient walk Yes around the grocery store without shortness of breath? Does patient have None history of Does patient use No oxygen at home? Does patient have No history of Sleep Apnea? Cough or cold No symptoms in the past two weeks? Does patient have No any memory problems? Does patient have None history of Mobility device(s) None used Comment Will bring walker. Has patient fallen Yes within the past year ? If yes, please Tripped on carpet and a curb. describe Does patient have a No neurostimulator or pain stimulator? Does patient have Yes chronic pain? If yes, where? Right hip pain. Baseline pain score 3 Does patient have No history of GERD? Special dietary No needs or difficulty swallowing? Does patient have No history of kidney/ liver problems/ disease? Does patient have Yes Diabetes? HgbA1C 6.7 Date 11/03/24 Insulin pump or No continuous glucose monitor? GLP-1? Yes If yes, daily or Daily. weekly? Does patient have No history of thyroid problems? Is patient ? No Is patient No ? Does patient have No history of cancer? Alcohol intake 1-2 drinks per day Smoking status Former smoker Marijuana product No use? Comment Quit 1977. Other substance use None Does patient have No history of anesthesia reactions ? Family history of No anesthesia reactions ? Patient/family No member history of Malignant Hyperthermia? Does patient have No history of a blood transfusion reaction ? Anesthesia Review No Requested Spiritual beliefs None. that may affect healthcare choices? Cultural practices None. that may affect healthcare choices? Patient has Advanced No Directive and/or Power of Safety Director? Does patient have Yes assistance after surgery? Comment - Yamileth Who is driving Ry - brother patient home after surgery? Relationship to Family Member patient PAC Instructions Assistance for 24 hours post-op,Diabetes instructions, Durable medical equipment,Medications to take/avoid,No ETOH/petroleum product on skin DOS,NPO,Post-op transportation,Pre-surgical wash,Sturdy shoes/ comfortable clothes,Do not bring valuables and remove jewelry
== END 2024-12-23 12:00 | disposition home or self-care (01) ==
LOC: OR 14:01 → AC 15:48
PROVIDERS: PCP Family Medicine; Referring Provider Orthopaedic Surgery Adult Reconstructive Orthopaedic Surgery; Visit Provider Orthopaedic Surgery Adult Reconstructive Orthopaedic Surgery
PROC: (CPT 27130; principal; 2024-12-22 13:00)
DX: M16.11 Unilateral primary osteoarthritis, right hip (principal); E11.9 Type 2 diabetes mellitus without complications; Z79.84 Long term (current) use of oral hypoglycemic drugs; M25.751 Osteophyte, right hip
CPT/HCPCS: 27130; 0054T; 73502; 76000; 82962; 97116; 97161; 97530; C1776; S2900; J0689; J1100; J1815; J1885; J2405; J2704; J7050; J7120